=== PATIENT | female | born 1975 | race Caucasian/White ===

== ENCOUNTER 2022-04-17 17:27 | Emergency (ER) | payer OTHER, SELFPAY ==
--- NOTE | ~2022-04-17 | CT_ITS ---
EXAMINATION: CT ABDOMEN AND PELVIS WITHOUT CONTRAST CLINICAL INFORMATION: Abdominal pain, question herniation COMPARISON: None TECHNIQUE: Multidetector volumetric imaging was performed from the superior aspect of the liver through the pubic symphysis. Sagittal and coronal reformatted images were obtained on the technologist's workstation. This CT examination was performed using dose optimization techniques as appropriate, variously including the following: *Automated exposure control *Adjustment of mA and/or kV according to patient size (this includes techniques or standardized protocols for targeted exams where dose is matched to indication/reason for exam; i.e. extremities or head) *Use of iterative reconstruction technique DLP: 955 mGy-cm FINDINGS: LUNG BASES: Numerous nodularity at the lung bases. Differential would include infectious versus malignant etiology. LIVER, GALLBLADDER, AND BILIARY TREE: The liver is normal in size, shape, and attenuation. No focal hepatic lesion or biliary ductal dilatation is present. Gallstones in the gallbladder. PANCREAS: Unremarkable. SPLEEN: Splenomegaly. ADRENAL GLANDS: Unremarkable. KIDNEYS AND URETERS: Nonobstructing mid left renal calculus. BLADDER: Unremarkable. GASTROINTESTINAL TRACT: The bowel pattern is nonobstructing. There is no free fluid. ABDOMINAL WALL: No significant hernia is appreciated. LYMPH NODES: No bulky adenopathy VASCULAR: Unremarkable. PELVIC VISCERA: Unremarkable. OSSEOUS STRUCTURES: Unremarkable. CT/CT abdomen pelvis wo IV con IMPRESSION: This exam is abnormal. There are numerous lung lesions in the partially visualized lung bases. Largest at the right base measuring 1 cm. Differential would include malignancy versus infectious etiology. Recommend CT of the chest to fully evaluate Splenomegaly is present. Uncertain etiology. Other findings are as described above Fleischner guidelines were followed.
--- NOTE | ~2022-04-17 | CT_ITS ---
EXAMINATION: CT CHEST WITH CONTRAST CLINICAL INFORMATION: Lung nodules seen on abdominal CT scan. COMPARISON: CT scan of the abdomen and pelvis dated 04/17/2022. TECHNIQUE: Multidetector volumetric CT imaging of the chest was obtained after the administration of 50 mL of Omnipaque 350 intravenous contrast without immediate adverse reactions. Axial MIP volume rendering provided. Sagittal and coronal reformatted images were obtained. This CT examination was performed using dose optimization techniques as appropriate, variously including the following: *Automated exposure control *Adjustment of mA and/or kV according to patient size (this includes techniques or standardized protocols for targeted exams where dose is matched to indication/reason for exam; i.e. extremities or head) *Use of iterative reconstruction technique DLP: 372 mGy-cm FINDINGS: LUNGS/PLEURA/AIRWAYS: Innumerable pulmonary nodules with solid and subsolid appearance. [employer] nodules are as follows: Left apex, anterolateral: 0.6 cm, image 69, series 5 Right apex, anterior: 1.1 cm, image 104, series 5 Right upper lobe, anterolateral subpleural: 0.7 cm, image 197, series 5 Right middle lobe, anterior subpleural: 0.6 cm, image 271, series 5 Right lower lobe, posterolateral: 1.1 cm, image 303, series 5 Left lower lobe, lateral: 1.0 cm, image 289, series 5 MEDIASTINUM: The visualized thyroid gland is unremarkable. The thoracic aorta is unremarkable. No significant coronary artery calcifications. No pericardial effusion. Mildly prominent mediastinal lymph nodes. A maintenance representative superior mediastinal lymph node between the left subclavian and left common carotid arterial branches measures 1.1 cm in short axis (image 12, series 3). A left anterior mediastinal lymph node measures 0.8 cm in short axis (image 17, series 3). UPPER ABDOMEN: Diffuse decreased hepatic attenuation without focal abnormality. Normal variant extension of the left lobe into the left upper quadrant. Calcified gallstones without surrounding abnormality. Nonobstructing left upper pole renal calculus. MUSCULOSKELETAL: Unremarkable. SOFT TISSUES: Unremarkable. CT/CT chest w IV con IMPRESSION: 1. Multiple pulmonary nodules are nonspecific, but concerning for malignancy/metastatic disease. Septic emboli would be less likely. A causative abnormality was not clearly identified on the recent CT scan of the abdomen and pelvis. PET/CT and/or biopsy are recommended. 2. Hepatic steatosis and cholelithiasis without evidence for acute cholecystitis.
--- NOTE | 2022-04-17 18:37 | ED.GENADULT ---
HPI - General Adult General Chief complaint: Abdominal Pain <Benjamín Garner - Last Filed: 04/17/22 18:55> Stated complaint: Hernia <Benjamín Garner - Last Filed: 04/17/22 18:55> Time Seen by Provider: 04/18/22 06:46 <Benjamín Garner - Last Filed: 04/17/22 18:55> Source: patient <Heide Costello DO - Last Filed: 04/18/22 08:29> Mode of arrival: ambulatory <Heide Costello DO - Last Filed: 04/18/22 08:29> Limitations: no limitations <Heide Costello DO - Last Filed: 04/18/22 08:29> History of Present Illness HPI narrative: 46 yo female with hx of psoriatic arthritis, COVID 3 weeks ago prior lung nodule with biopsy sometime in 2019 here with c/o L sided abdominal wall ttp hurts to move cough no trauma no other symptoms unsure if she had a hernia. She feels something is trying to pop out. She has had a cough since her first bout of COVID but had another bout 3 weeks ago. She denies weight loss, has night sweats due to hernesto-menopause. She has no other symptoms at this time. <Heide Costello DO - Last Filed: 04/18/22 08:29> MD complaint: L sided abdominal pain ?hernia <Heide Costello DO - Last Filed: 04/18/22 08:29> Onset (ago): day(s) (few) <Heide Costello DO - Last Filed: 04/18/22 08:29> Location: abdomen <Heide Costello DO - Last Filed: 04/18/22 08:29> Radiation: non-radiation <Heide Costello DO - Last Filed: 04/18/22 08:29> Severity: moderate <Heide Costello DO - Last Filed: 04/18/22 08:29> Quality: stabbing and constant <Heide Costello DO - Last Filed: 04/18/22 08:29> Pain Consistency: intermittent <Heide Costello DO - Last Filed: 04/18/22 08:29> Relieving factors: immobilization <Heide Costello DO - Last Filed: 04/18/22 08:29> Exacerbating factors: movement <Heide Costello DO - Last Filed: 04/18/22 08:29> Associated symptoms: denies other symptoms <Heide Costello DO - Last Filed: 04/18/22 08:29> Treatments prior to arrival: none <Heide Costello DO - Last Filed: 04/18/22 08:29> Related Data Allergies/adverse reactions: Allergies Allergy/AdvReac Type Severity Reaction Status Date / Time anethesia AdvReac Unknown Anaphylaxis Uncoded 04/17/22 18:47 <Benjamín Garner - Last Filed: 04/17/22 18:55> Review of Systems Review of Systems: Constitutional : No Weight loss, No Fever, No Chills ENT/Mouth : No sore throat, No Rhinorrhea Eyes: No Swelling, No Redness Cardiovascular : No Chest Pain, No SOB, NoEdema Respiratory : pos Cough, No Sputum, No Wheezing Gastrointestinal : no Nausea, no Vomiting, no Diarrhea, positive abdominal Pain, No Hematochezia, No Melena Genitourinary : No Dysuria, No Urinary Frequency, No Hematuria, No Urgency Musculoskeletal : No joint pain, No Myalgias, No Joint Swelling Skin : No Skin Lesions, No rash Neuro : No Weakness, No Numbness, No Dizziness, No Headache Psych : No Anxiety/Panic, No Depression Heme/Lymph: No Bruising, No Lymphadenopathy Endocrine : No Polyuria, No Polydipsia All other systems reviewed and are negative. <Heide Costello DO - Last Filed: 04/18/22 08:29> [facility] Past Medical History Attestation statement: The following information was validated with the patient. <Heide Costello DO - Last Filed: 04/18/22 08:29> Medical History: Medical History Arthritis <Benjamín Garner - Last Filed: 04/17/22 18:55> Surgical History: Surgical History History of hysterectomy History of hysterectomy for cancer <Benjamín Garner - Last Filed: 04/17/22 18:55> Social History Social History: Social History Alcohol intake: never Smoked in Last 30 Days: No Use of substances other than those prescribed or required for medical reasons: No Advance Directives: No Advance Directives Information Provided: No <Benjamín Garner - Last Filed: 04/17/22 18:55> Physical Exam ED Vital Signs: Vital Signs - 24 hr 04/17/22 18:46 04/18/22 02:20 04/18/22 05:07 Temperature 98.2 F 96.8 F 97.4 F Pulse Rate 80 90 79 Respiratory Rate 18 16 16 Blood Pressure 139/85 123/76 128/64 Pulse Oximetry 99 98 99 Oxygen Delivery Method Room Air Room Air Room Air 04/18/22 07:04 Temperature 98.3 F Pulse Rate 78 Respiratory Rate 12 Blood Pressure 116/61 Pulse Oximetry 99 Oxygen Delivery Method Room Air BMI result Body Mass Index 42.5 <Benjamín Garner - Last Filed: 04/17/22 18:55> Vital Signs - 24 hr 04/17/22 18:46 04/18/22 02:20 04/18/22 05:07 Temperature 98.2 F 96.8 F 97.4 F Pulse Rate 80 90 79 Respiratory Rate 18 16 16 Blood Pressure 139/85 123/76 128/64 Pulse Oximetry 99 98 99 Oxygen Delivery Method Room Air Room Air Room Air 04/18/22 07:04 Temperature 98.3 F Pulse Rate 78 Respiratory Rate 12 Blood Pressure 116/61 Pulse Oximetry 99 Oxygen Delivery Method Room Air BMI result Body Mass Index 42.5 <Heide Costello DO - Last Filed: 04/18/22 08:29> Vital Signs - 24 hr 04/17/22 18:46 04/18/22 02:20 04/18/22 05:07 Temperature 98.2 F 96.8 F 97.4 F Pulse Rate 80 90 79 Respiratory Rate 18 16 16 Blood Pressure 139/85 123/76 128/64 Pulse Oximetry 99 98 99 Oxygen Delivery Method Room Air Room Air Room Air 04/18/22 07:04 Temperature 98.3 F Pulse Rate 78 Respiratory Rate 12 Blood Pressure 116/61 Pulse Oximetry 99 Oxygen Delivery Method Room Air BMI result Body Mass Index 42.5 <Fifi Duran MD - Last Filed: 04/18/22 09:07> Appearance: Alert. Oriented X3. No acute distress. Eyes: Pupils equal, round and reactive to light. ENT: Pharynx normal. Neck: Normal inspection. Neck supple. CVS: Normal heart rate and rhythm. Pulses normal. Respiratory: No respiratory distress. Breath sounds normal. Abdomen: Soft and ttp just lateral to umbilicus without no mass felt no discoloration it is right on the rectus sheath without hematoma felt. Skin: Skin warm and dry. Normal skin color. Normal skin turgor. Extremities: No lower extremity edema. No calf ttp Neuro: Oriented X 3. No motor deficit. No sensory deficit. <Heide Costello DO - Last Filed: 04/18/22 08:29> Course Course Course Narrative: DIMA - Tina is a 43-wcdo-wal-female, with a past medical history of anxiety and depression, who presents today with complaints of ?hernia. She states that in December she felt something pop out in her abdomen, just left to her umbilicus. She states that she would feel the area pop in and out , with associated abdominal pain. She states that the pain and sensation occurs more often ever since she had COVID in February as she was coughing more. Patient states that every time she coughs or sneezes, it feels as though something is going to pop out of her abdomen. She states that she had a hysterectomy and had her right ovary removed in the , no other abdominal surgeries. No nausea, vomiting or diarrhea. Plan: CT abdomen and pelvis ordered. <Benjamín Garner - Last Filed: 04/17/22 18:55> Reevaluation(s) Reevaluation #1: This is a 46-year-old female who was signed out to me and I reviewed her imaging studies which again demonstrates multiple pulmonary nodules and the recommendation is for further workup as an outpatient with biopsy and/or PET scan. All results were discussed with patient bedside she was discharged home in stable condition. <Fifi Duran MD - Last Filed: 04/18/22 09:07> Time: 09:05 <Fifi Duran MD - Last Filed: 04/18/22 09:07> Medications Administered Discontinued Medications Generic Name Dose Route Start Last Admin Trade Name Freq PRN Reason Stop Dose Admin Iohexol 100 ml 04/18/22 07:41 04/18/22 07:42 Iohexol 350 Mg/Ml 100 Ml Infus..Btl IV 04/18/22 07:42 65 ml ONCE ONE Administration <Benjamín Garner - Last Filed: 04/17/22 18:55> Medications Administered Discontinued Medications Generic Name Dose Route Start Last Admin Trade Name Freq PRN Reason Stop Dose Admin Iohexol 100 ml 04/18/22 07:41 04/18/22 07:42 Iohexol 350 Mg/Ml 100 Ml Infus..Btl IV 04/18/22 07:42 65 ml ONCE ONE Administration <Heide Costello DO - Last Filed: 04/18/22 08:29> Medications Administered Discontinued Medications Generic Name Dose Route Start Last Admin Trade Name Freq PRN Reason Stop Dose Admin Iohexol 100 ml 04/18/22 07:41 04/18/22 07:42 Iohexol 350 Mg/Ml 100 Ml Infus..Btl IV 04/18/22 07:42 65 ml ONCE ONE Administration <Fifi Duran MD - Last Filed: 04/18/22 09:07> Medical Decision Making Medical Decision Making [facility] Narrative: 46 yo female with psoriatic arthritis here with c/o abdominal wall ttp without mass felt on exam and CT scan shows no hernia but lung nodules and splenomegaly has had lung nodules in the past with biopsy but that was 2020 at this time I am going to repeat CT chest to evaluate the lungs. She has stable labs and VS. May need outpatient biopsy again. Her abdomen is not impressive and CT scan/exam no hernia is noted her pain is right on the rectus sheath no risk factors for hematoma and she has no associated GI symptoms. Will treat that as strain. <Heide Costello DO - Last Filed: 04/18/22 08:29> Differential Diagnosis Differential Diagnoses: The differential diagnosis associated with the presentation includes <Heide Costello DO - Last Filed: 04/18/22 08:29> hernia, rectal sheath strain, abdominal wall strain <Heide Costello DO - Last Filed: 04/18/22 08:29> Lab Data [facility] Lab Attestation statement: I reviewed the patient's lab results. <Heide Costello DO - Last Filed: 04/18/22 08:29> Result Diagrams: 04/17/22 19:16 04/17/22 19:16 <Benjamín Garner - Last Filed: 04/17/22 18:55> Labs: Lab Results 04/17/22 04/17/22 Range/Units 19:16 19:16 WBC 8.5 (4.8-10.8) X10*3/uL RBC 4.62 (4.20-5.50) X10*6/uL Hgb 12.7 (12.0-16.0) g/dl Hct 39.1 (37.0-47.0) % MCV 84.6 (80.0-98.0) fL MCH 27.5 (27.0-33.0) pg MCHC 32.5 (31.0-35.0) g/dl RDW 14.0 (11.0-16.0) % Plt Count 319 (160-400) X10*3/uL MPV 10.0 (9.4-12.3) fL Immature Gran % (Auto) 0.5 H (0.0-0.4) % Neut % (Auto) 65.7 (45-73) % Lymph % (Auto) 23.1 (20-40) % [place] % (Auto) 6.7 (2-11) % Eos % (Auto) 3.4 (0-4) % Baso % (Auto) 0.6 (0-2) % Lymph # (Auto) 2.0 (1.2-4.9) X10*3/uL [place] # (Auto) 0.6 (0.1-1.2) X10*3/uL Eos # (Auto) 0.3 (0.0-0.4) X10*3/uL Baso # (Auto) 0.1 (0.0-0.2) X10*3/uL Abs Immat Gran (auto) 0.04 H (0.00-0.03) X10*3/uL Absolute Neuts (auto) 5.6 (2.0-8.3) x10*3/uL Absolute Nucleated RBC 0.000 (0.0-0.012) X10*3/uL Nucleated RBC % (auto) 0.0 (0.0-0.2) /100WBC Sodium 141 (135-145) mmol/L Potassium 4.0 (3.3-5.1) mmol/L Chloride 108 (96-108) mmol/L Carbon Dioxide 27 (22-29) mmol/L Anion Gap 10 L (12-20) BUN 16 (9-16) mg/dL Creatinine 0.78 (0.5-1.4) mg/dL Estim Creat Clear Calc 106.7 Estimated GFR > 60 Random Glucose 88 (60-115) mg/dL Calcium 9.3 (8.4-10.2) mg/dL Total Bilirubin 0.4 (0.0-1.0) mg/dL AST 33 H (5-31) U/L ALT 65 H (0-31) U/L Alkaline Phosphatase 93 (39-117) U/L Total Protein 7.6 (6.5-8.0) g/dL Albumin 4.2 (3.5-5.0) g/dL Lipase 13 (8-78) U/L <Benjamín Garner - Last Filed: 04/17/22 18:55> Lab Results 04/17/22 04/17/22 Range/Units 19:16 19:16 WBC 8.5 (4.8-10.8) X10*3/uL RBC 4.62 (4.20-5.50) X10*6/uL Hgb 12.7 (12.0-16.0) g/dl Hct 39.1 (37.0-47.0) % MCV 84.6 (80.0-98.0) fL MCH 27.5 (27.0-33.0) pg MCHC 32.5 (31.0-35.0) g/dl RDW 14.0 (11.0-16.0) % Plt Count 319 (160-400) X10*3/uL MPV 10.0 (9.4-12.3) fL Immature Gran % (Auto) 0.5 H (0.0-0.4) % Neut % (Auto) 65.7 (45-73) % Lymph % (Auto) 23.1 (20-40) % [place] % (Auto) 6.7 (2-11) % Eos % (Auto) 3.4 (0-4) % Baso % (Auto) 0.6 (0-2) % Lymph # (Auto) 2.0 (1.2-4.9) X10*3/uL [place] # (Auto) 0.6 (0.1-1.2) X10*3/uL Eos # (Auto) 0.3 (0.0-0.4) X10*3/uL Baso # (Auto) 0.1 (0.0-0.2) X10*3/uL Abs Immat Gran (auto) 0.04 H (0.00-0.03) X10*3/uL Absolute Neuts (auto) 5.6 (2.0-8.3) x10*3/uL Absolute Nucleated RBC 0.000 (0.0-0.012) X10*3/uL Nucleated RBC % (auto) 0.0 (0.0-0.2) /100WBC Sodium 141 (135-145) mmol/L Potassium 4.0 (3.3-5.1) mmol/L Chloride 108 (96-108) mmol/L Carbon Dioxide 27 (22-29) mmol/L Anion Gap 10 L (12-20) BUN 16 (9-16) mg/dL Creatinine 0.78 (0.5-1.4) mg/dL Estim Creat Clear Calc 106.7 Estimated GFR > 60 Random Glucose 88 (60-115) mg/dL Calcium 9.3 (8.4-10.2) mg/dL Total Bilirubin 0.4 (0.0-1.0) mg/dL AST 33 H (5-31) U/L ALT 65 H (0-31) U/L Alkaline Phosphatase 93 (39-117) U/L Total Protein 7.6 (6.5-8.0) g/dL Albumin 4.2 (3.5-5.0) g/dL Lipase 13 (8-78) U/L <Heide Costello, DO - Last Filed: 04/18/22 08:29> Lab Results 04/17/22 04/17/22 Range/Units 19:16 19:16 WBC 8.5 (4.8-10.8) X10*3/uL RBC 4.62 (4.20-5.50) X10*6/uL Hgb 12.7 (12.0-16.0) g/dl Hct 39.1 (37.0-47.0) % MCV 84.6 (80.0-98.0) fL MCH 27.5 (27.0-33.0) pg MCHC 32.5 (31.0-35.0) g/dl RDW 14.0 (11.0-16.0) % Plt Count 319 (160-400) X10*3/uL MPV 10.0 (9.4-12.3) fL Immature Gran % (Auto) 0.5 H (0.0-0.4) % Neut % (Auto) 65.7 (45-73) % Lymph % (Auto) 23.1 (20-40) % [place] % (Auto) 6.7 (2-11) % Eos % (Auto) 3.4 (0-4) % Baso % (Auto) 0.6 (0-2) % Lymph # (Auto) 2.0 (1.2-4.9) X10*3/uL [place] # (Auto) 0.6 (0.1-1.2) X10*3/uL Eos # (Auto) 0.3 (0.0-0.4) X10*3/uL Baso # (Auto) 0.1 (0.0-0.2) X10*3/uL Abs Immat Gran (auto) 0.04 H (0.00-0.03) X10*3/uL Absolute Neuts (auto) 5.6 (2.0-8.3) x10*3/uL Absolute Nucleated RBC 0.000 (0.0-0.012) X10*3/uL Nucleated RBC % (auto) 0.0 (0.0-0.2) /100WBC Sodium 141 (135-145) mmol/L Potassium 4.0 (3.3-5.1) mmol/L Chloride 108 (96-108) mmol/L Carbon Dioxide 27 (22-29) mmol/L Anion Gap 10 L (12-20) BUN 16 (9-16) mg/dL Creatinine 0.78 (0.5-1.4) mg/dL Estim Creat Clear Calc 106.7 Estimated GFR > 60 Random Glucose 88 (60-115) mg/dL Calcium 9.3 (8.4-10.2) mg/dL Total Bilirubin 0.4 (0.0-1.0) mg/dL AST 33 H (5-31) U/L ALT 65 H (0-31) U/L Alkaline Phosphatase 93 (39-117) U/L Total Protein 7.6 (6.5-8.0) g/dL Albumin 4.2 (3.5-5.0) g/dL Lipase 13 (8-78) U/L <Fifi Duran MD - Last Filed: 04/18/22 09:07> Independent Interpretation I performed an independent interpretation of an: CT Scan <Heide Costello DO - Last Filed: 04/18/22 08:29> Discharge Plan Discharge Clinical Impression: Lung nodule Abdominal wall strain Qualifiers: Encounter type: initial encounter Qualified Code(s): S39.011A - Strain of muscle, fascia and tendon of abdomen, initial encounter <Benjamín Garner - Last Filed: 04/17/22 18:55> Patient Disposition: Home, Self-Care <Benjamín Garner - Last Filed: 04/17/22 18:55> Instructions: Abdominal Pain (ED), Pulmonary Nodules (ED) <Benjamín Garner - Last Filed: 04/17/22 18:55> Additional Instructions: return to ED for any worsening symptoms or concerns CT/CT abdomen pelvis wo IV con IMPRESSION: This exam is abnormal. There are numerous lung lesions in the partially visualized lung bases. Largest at the right base measuring 1 cm. Differential would include malignancy versus infectious etiology. Recommend CT of the chest to fully evaluate ? Splenomegaly is present. Uncertain etiology. CT/CT chest w IV con IMPRESSION: ? 1. Multiple pulmonary nodules are nonspecific, but concerning for malignancy/metastatic disease. Septic emboli would be less likely. A causative abnormality was not clearly identified on the recent CT scan of the abdomen and pelvis. PET/CT and/or biopsy are recommended. 2. Hepatic steatosis and cholelithiasis without evidence for acute cholecystitis. <Benjamín Garner - Last Filed: 04/17/22 18:55> Referrals: Corina Schreiber MD [Primary Care Provider] - <Benjamín Garner - Last Filed: 04/17/22 18:55>
[2022-04-17 18:46] VITALS: BP 139/85; PULSE 80; RESP 18; TEMP 36.8; O2SAT 99; BMI 42.5
[2022-04-17 19:30] LABS: MANUAL DIFF FLAG NO
[2022-04-17 19:31] LABS: Basophils Absolute Auto 0.1 X10*3/uL (0.0-0.2); Basophils Percent Auto 0.6 % (0-2); Eosinophils Absolute Auto 0.3 X10*3/uL (0.0-0.4); Eosinophils Percent Auto 3.4 % (0-4); Hematocrit 39.1 % (37.0-47.0); Hemoglobin 12.7 g/dl (12.0-16.0); Imm Gran Abs Auto 0.04 X10*3/uL (0.00-0.03); Imm Gran Pct Auto 0.5 % (0.0-0.4); Lymphocytes Percent Auto 23.1 % (20-40); Mean Corpuscular HGB Conc 32.5 g/dl (31.0-35.0); Mean Corpuscular Hemoglobin 27.5 pg (27.0-33.0); Mean Corpuscular Volume 84.6 fL (80.0-98.0); Monocytes Absolute Auto 0.6 X10*3/uL (0.1-1.2); Monocytes Percent Auto 6.7 % (2-11); Neutrophils Absolute Auto 5.6 x10*3/uL (2.0-8.3); Neutrophils Percent Auto 65.7 % (45-73); Platelet Count 319 X10*3/uL (160-400); Red Blood Count 4.62 X10*6/uL (4.20-5.50); White Blood Count 8.5 X10*3/uL (4.8-10.8)
[2022-04-17 20:01] LABS: Alanine Aminotransferase 65 U/L (0-31); Albumin Level 4.2 g/dL (3.5-5.0); Alkaline Phosphatase 93 U/L (39-117); Anion Gap 10 (12-20); Aspartate Amino Transferase 33 U/L (5-31); Bilirubin Total 0.4 mg/dL (0.0-1.0); Blood Urea Nitrogen 16 mg/dL (9-16); Calcium 9.3 mg/dL (8.4-10.2); Carbon Dioxide 27 mmol/L (22-29); Chloride 108 mmol/L (96-108); Creatinine Clr Calc Pharmacy 106.7; Estimated Glomerular Filt Rate > 60; Glucose Random 88 mg/dL (60-115); Lipase 13 U/L (8-78); Sodium 141 mmol/L (135-145); Total Protein 7.6 g/dL (6.5-8.0)
[2022-04-18 02:20] VITALS: BP 123/76; PULSE 90; RESP 16; TEMP 36; O2SAT 98
[2022-04-18 05:07] VITALS: BP 128/64; PULSE 79; RESP 16; TEMP 36.3; O2SAT 99
--- NOTE | 2022-04-18 05:10 | MHC.EDTECH ---
PT WAS CALLED BACK TO TRIAGE TO RE DO VITALS SIGN ,I GIVE PT WARM BLANKET AND A BOX OF TISSUE .
[2022-04-18 07:04] VITALS: BP 116/61; PULSE 78; RESP 12; TEMP 36.8; O2SAT 99
[2022-04-18] MEDS: iohexoL 350 MG/ML 100 ML INFUS..BTL IV (07:42)
== END 2022-04-18 09:27 | disposition home or self-care (01) ==
PROVIDERS: Physician Assistant; Emergency Provider Student in an Organized Health Care Education/Training Program; PCP Internal Medicine
DX: R91.1 Solitary pulmonary nodule (principal); S39.011A Strain of muscle, fascia and tendon of abdomen, initial encounter; X58.XXXA Exposure to other specified factors, initial encounter; Y93.89 Activity, other specified; Y92.039 Unspecified place in apartment as the place of occurrence of the external cause; Y99.9 Unspecified external cause status; Z87.891 Personal history of nicotine dependence
CPT/HCPCS: 36415; 71260; 74176; 80053; 83690; 85025; 99284; Q9967

== ENCOUNTER 2022-05-01 08:13 | Outpatient (REF) | payer OTHER, SELFPAY ==
[2022-05-01 11:17] LABS: Appearance Urine Turbid; Color Urine Yellow; Glucose Urine UA Negative (Negative); Leukocyte Esterase Urine Negative (Negative); Nitrite Urine Negative (Negative); PH 5.5 (5.0-9.0); Urine Blood Negative (Negative); Urine Ketones Negative (Negative); Urine Protein Negative (Neg-Trace)
[2022-05-01 11:22] LABS: MANUAL DIFF FLAG NO
[2022-05-01 11:45] LABS: Basophils Percent Auto 0.5 % (0-2); Eosinophils Absolute Auto 0.3 X10*3/uL (0.0-0.4); Eosinophils Percent Auto 4.1 % (0-4); Hematocrit 38.2 % (37.0-47.0); Hemoglobin 12.4 g/dl (12.0-16.0); Imm Gran Abs Auto 0.03 X10*3/uL (0.00-0.03); Imm Gran Pct Auto 0.5 % (0.0-0.4); Lymphocytes Absolute Auto 1.6 X10*3/uL (1.2-4.9); Lymphocytes Percent Auto 24.7 % (20-40); Mean Corpuscular HGB Conc 32.5 g/dl (31.0-35.0); Mean Corpuscular Hemoglobin 27.7 pg (27.0-33.0); Mean Corpuscular Volume 85.5 fL (80.0-98.0); Mean Platelet Volume 10.4 fL (9.4-12.3); Monocytes Absolute Auto 0.4 X10*3/uL (0.1-1.2); Monocytes Percent Auto 6.2 % (2-11); Neutrophils Absolute Auto 4.1 x10*3/uL (2.0-8.3); Platelet Count 314 X10*3/uL (160-400); Red Blood Count 4.47 X10*6/uL (4.20-5.50); Red Cell Distribution Width 14.4 % (11.0-16.0); White Blood Count 6.3 X10*3/uL (4.8-10.8)
[2022-05-01 11:59] LABS: Alanine Aminotransferase 55 U/L (0-31); Albumin Level 4.1 g/dL (3.5-5.0); Alkaline Phosphatase 77 U/L (39-117); Anion Gap 11 (12-20); Aspartate Amino Transferase 36 U/L (5-31); Bilirubin Total 0.7 mg/dL (0.0-1.0); Blood Urea Nitrogen 12 mg/dL (9-16); Calcium 8.9 mg/dL (8.4-10.2); Carbon Dioxide 23 mmol/L (22-29); Chloride 109 mmol/L (96-108); Estimated Glomerular Filt Rate > 60; Glucose Fasting 101 mg/dL (60-99); Iron 86 mcg/dL (30-160); Percent Iron Saturation 27 % (15-50); Potassium 4.1 mmol/L (3.3-5.1); Sodium 139 mmol/L (135-145); Total Iron Binding Capacity 317 mcg/dL (228-428); Total Protein 7.2 g/dL (6.5-8.0); Unsaturated Iron Binding 231 ug/dL
[2022-05-01 12:06] LABS: TSH reflex Free T4 4.56 uIU/mL (0.32-4.0)
[2022-05-01 12:48] LABS: Free T4 (Free Thyroxine) 0.64 ng/dL (0.71-1.85)
[2022-05-03 15:08] LABS: Anti Nuclear Antibody Screen NEGATIVE (NEGATIVE)
[2022-05-03 22:33] LABS: Ceruloplasmin 32 mg/dL (18-53)
[2022-05-05 15:47] LABS: Angiotensin Converting Enzyme 51.8 U/L (9-67)
[2022-05-07 10:39] LABS: Mitochondrial Antibodies NEGATIVE (NEGATIVE)
[2022-05-14 14:09] LABS: A1A Referring Physician NG
== END 2022-05-01 08:14 | disposition home or self-care (01) ==
LOC: HO.HMGCLDS 08:13
PROVIDERS: PCP Internal Medicine; Visit Provider Internal Medicine
DX: Z00.00 Encounter for general adult medical examination without abnormal findings (principal); R79.89 Other specified abnormal findings of blood chemistry; R91.8 Other nonspecific abnormal finding of lung field; Z80.0 Family history of malignant neoplasm of digestive organs; K21.9 Gastro-esophageal reflux disease without esophagitis; E03.9 Hypothyroidism, unspecified
CPT/HCPCS: 36415; 80053; 81003; 81256; 82104; 82164; 82390; 83540; 84439; 84443; 85025; 86038; 86039; 86255; 86256

== ENCOUNTER → 2022-05-08 09:21 | Outpatient (BNVA) | payer OTHER, SELFPAY | PROVIDERS: PCP Internal Medicine; Visit Provider Hospitalist | DX: Z13.89 Encounter for screening for other disorder (principal) ==

== ENCOUNTER 2022-05-23 07:57 | Outpatient (REF) | payer OTHER, SELFPAY ==
--- NOTE | 2022-05-23 | PFT_ITS ---
FLOWS: 1. FEV1 92% of predicted at 2.59 L. 2. FVC 81% of predicted at 2.83 L. 3. FEV1 to FVC ratio of 0.92. 4. No bronchodilator response. LUNG VOLUMES: 1. Total lung capacity 74% of predicted at 3.65 L. 2. Residual volume 49% of predicted at 0.83 L. 3. Slow vital capacity 87% of predicted at 2.82 L. 4. Expiratory reserve volume 42% of predicted at 0.45 L. 5. Diffusion capacity is mildly decreased. Diffusion capacity corrects normal after adjustment for alveolar ventilation. IMPRESSION: Mild restrictive ventilatory defect with no bronchodilator response. Decreased respiratory residual volume suggests extrathoracic restriction likely secondary to abdominal obesity. Decreased diffusion capacity suggests emphysema. Mirza Nunes MD AP/MODL / [id number]
== END 2022-05-23 07:58 | disposition home or self-care (01) ==
LOC: HO.RESP 07:57
PROVIDERS: PCP Internal Medicine; Visit Provider Hospitalist
DX: R06.00 Dyspnea, unspecified (principal)
CPT/HCPCS: 94060; 94727; 94729

== ENCOUNTER → 2022-05-24 09:05 | Outpatient (BNVA) | payer OTHER, SELFPAY | PROVIDERS: PCP Internal Medicine; Visit Provider Surgery | DX: R91.8 Other nonspecific abnormal finding of lung field (principal); Z87.891 Personal history of nicotine dependence; Z85.41 Personal history of malignant neoplasm of cervix uteri | CPT/HCPCS: 99202 ==

== ENCOUNTER 2022-06-19 07:24 | Outpatient (REF) | payer OTHER, SELFPAY ==
--- NOTE | ~2022-06-19 | MM_ITS ---
EXAMINATION: MM SCREENING DIGITAL BREAST TOMOSYNTHESIS, BILATERAL CLINICAL INFORMATION: Screening. Asymptomatic. The lifetime risk of breast cancer based on the Tyrer-Cuzick Model is 23%. Additional annual screening with breast MRI may be of benefit in women with a score of 20% or greater. COMPARISON: Mammography: 07/10/2018 and 03/15/2017 TECHNIQUE: Digital breast tomosynthesis is performed in both the craniocaudal and mediolateral oblique views along with computer-aided detection (CAD). Synthesized 2D images are generated from the tomosynthesis. FINDINGS: There are scattered areas of fibroglandular density (ACR BI-RADS breast composition Category b). There is stable parenchymal pattern of the right breast with no new abnormal dominant mass or suspicious grouping of microcalcifications. Within the left breast there is an asymmetric density inferiorly on mediolateral oblique projection approximately 4 cm from the nipple, for which further evaluation with spot compression mediolateral oblique view and 90 degree mediolateral views. MM/MM tomosynthesis screening BI IMPRESSION: Left breast asymmetric density for further evaluation. ASSESSMENT: BI-RADS 0: Incomplete - Need Additional Imaging Evaluation RECOMMENDATION: 1. Additional views of the left breast. 2. Targeted ultrasound if warranted after review of the additional views. 3. Radiology department staff will contact the patient for additional imaging. This patient's information was entered into a reminder system with a target due date for their next mammogram.
== END 2022-06-19 07:25 | disposition home or self-care (01) ==
LOC: HO.MAMMO 07:24
PROVIDERS: PCP Internal Medicine; Visit Provider Internal Medicine
DX: Z12.31 Encounter for screening mammogram for malignant neoplasm of breast (principal)
CPT/HCPCS: 77063; 77067

== ENCOUNTER → 2022-07-03 10:57 | Outpatient (BNVA) | payer OTHER, SELFPAY | PROVIDERS: PCP Internal Medicine; Referring Provider Internal Medicine; Visit Provider Physician Assistant ==

== ENCOUNTER 2022-07-17 09:55 | Outpatient (REF) | payer OTHER, SELFPAY ==
[2022-07-17 13:43] LABS: HIV AB/AG Nonreactive (Nonreactive); HIV Num 1 0.07 S/CO (0.00-0.99)
[2022-07-17 13:49] LABS: TSH reflex Free T4 1.85 uIU/mL (0.32-4.0)
[2022-07-17 13:54] LABS: Erythrocyte Sedimentation Rate 29 MM/HR (0-20)
[2022-07-19 17:04] LABS: Anti DNA DS Antibody <1 IU/mL; Antibody to SS-A Antigen >8.0 POS AI (<1.0 NEG); Antibody to SS-B Antigen <1.0 NEG AI (<1.0 NEG)
[2022-07-24 10:59] LABS: Cyclic Citrullinated Peptide <16 UNITS
[2022-07-24 14:27] LABS: ANA Pattern 2 Nuclear, Homogeneous; Anti Nuclear Antibody Pattern Nuclear, Nucleolar; Anti Nuclear Antibody Screen POSITIVE (NEGATIVE)
== END 2022-07-17 09:56 | disposition home or self-care (01) ==
LOC: HO.LAB 09:55
PROVIDERS: PCP Internal Medicine; Visit Provider Hospitalist
DX: E03.9 Hypothyroidism, unspecified (principal); R91.8 Other nonspecific abnormal finding of lung field; R59.9 Enlarged lymph nodes, unspecified; D47.9 Neoplasm of uncertain behavior of lymphoid, hematopoietic and related tissue, unspecified; Z80.1 Family history of malignant neoplasm of trachea, bronchus and lung
CPT/HCPCS: 36415; 84443; 85652; 86038; 86039; 86200; 86225; 86235; 87389

== ENCOUNTER 2022-07-22 14:21 | Outpatient (REF) | payer OTHER, SELFPAY ==
--- NOTE | ~2022-07-22 | MM_ITS ---
EXAMINATION: MM DIAGNOSTIC DIGITAL BREAST TOMOSYNTHESIS, LEFT CLINICAL INFORMATION: Recall from screening for asymmetric density lower left breast limited to MLO view, suspect summation artifact or incompletely compressed glandular tissue. Family history breast cancer, mother. TC score 23%. COMPARISON: Mammography: 06/19/2022; outside mammography 07/10/2018 and 03/15/2017 ([facility]). TECHNIQUE: Digital breast tomosynthesis is performed. 2D images are generated from the tomosynthesis. The following views are obtained: Spot MLO, standard ML FINDINGS: There are scattered areas of fibroglandular density (ACR BI-RADS breast composition Category b). The additional views show parenchymal pattern similar to prior studies. There is no developing density or interval mass or architectural abnormality. Results are discussed with the patient at time of visit. MM/MM tomosynthesis added views L IMPRESSION: Additional views show no significant changes from prior studies. ASSESSMENT: BI-RADS 1: Negative RECOMMENDATION: -Routine annual mammography screening. -The lifetime risk of breast cancer based on the Tyrer-Cuzick Model is 23%. Additional annual adjunct screening with breast MRI may be of benefit in women with a risk score of 20% or greater. This patient's information was entered into a reminder system with a target due date for their next mammogram.
== END 2022-07-22 14:22 | disposition home or self-care (01) ==
LOC: HO.MAMMO 14:21
PROVIDERS: PCP Internal Medicine; Visit Provider Internal Medicine
DX: R92.2 Inconclusive mammogram (principal)
CPT/HCPCS: 77061; 77065

== ENCOUNTER 2022-07-30 13:04 | Outpatient (REF) | payer OTHER, SELFPAY ==
--- NOTE | ~2022-07-30 | PE_ITS ---
EXAMINATION: Fluorine-18 FDG PET/CT Scan CLINICAL INDICATION: Subsequent treatment management. B-cell lymphoma, restaging. PROCEDURE: 70 minutes following the intravenous administration of 21.5 mCi of fluorine 18 FDG, images from the base of the skull to the mid thighs were obtained using a combined PET/CT scanner with CT scan based attenuation correction. No oral contrast was administered. No intravenous contrast was administered. Transverse, coronal, sagittal, and volume reconstruction projections were obtained. The patient's blood glucose as determined by a finger stick, was 94 mg/dl immediately prior to injection. Total CT exam dose-length product 1241.84 mGy-cm * These CT images were obtained using dose optimization techniques as appropriate, variously including the following: Automated exposure control * Adjustment of mA and/or kV according to patient size (this includes techniques or standardized protocols for targeted exams where dose is matched to indication/reason for exam; i.e. extremities or head) * Use of iterative reconstruction technique COMPARISON: The report of a previous PET/CT scan performed at [facility] dated 05/16/2022 is available, but the images from that study are not available For review. CT scan of the chest dated 04/18/[address] scan of the abdomen and pelvis dated 04/17/2022 are available for comparison. FINDINGS: (Slice numbers described in this report are numbered superiorly to inferiorly with slice #1 in the head) NECK AND VISUALIZED HEAD: No foci of abnormal FDG activity are noted. There is bilaterally symmetrical prominent activity in the lingual and palatine tonsils which is likely physiological or inflammatory in etiology. The distribution of FDG activity is physiological. There is no cervical lymphadenopathy. THORAX: There is a suture line in the medial aspect of the right lung apex with very weakly associated FDG activity. A suture line extends across the major interlobar fissure to the medial aspect of the superior segment of the right lower lobe. Several subcentimeter right lung nodules are present, the largest in the lateral aspect of the base of the right lower lobe measuring 0.9 x 0.7 cm in largest transverse dimensions, slice 96/267. This is too small to be characterized on the FDG PET images, as are all of the other smaller nodules. These nodules do not appear significantly changed from the 04/18/[address] scan, the most recent study with images available for comparison. There is no pleural or pericardial fluid, or pneumothorax. There is no mediastinal, supraclavicular, or axillary lymphadenopathy. ABDOMEN AND PELVIS: There is FDG activity of varying intensities present throughout the gastrointestinal tract. The most prominent activity is in the mid right colon. There is no corresponding abnormality on these nondiagnostic CT images or the diagnostic 04/17/2022 CT scan of the abdomen and pelvis and this activity is also likely physiological. There is diverticulosis without evidence of diverticulitis. The hollow viscera are otherwise unremarkable. There is mild diffuse hepatic steatosis but the liver is otherwise unremarkable. Multiple peripherally calcified gallbladder calculi are present but the gallbladder is otherwise unremarkable. The spleen is mildly enlarged measuring 14 cm in largest dimension on the coronal projections. There is homogeneous FDG activity in the spleen. The kidneys, adrenal glands, and pancreas are unremarkable. There is no retroperitoneal, mesenteric, pelvic or inguinal lymphadenopathy. There is a fluid density 3.6 x 4.0 cm left adnexal cyst. Most of this is markedly FDG photopenic but a region which shows more dense attenuation on the CT images shows very mild FDG activity, and the lateral aspect of this, SUVmax 2.7, slice 213/261. The pelvic organs are otherwise unremarkable. MUSCULOSKELETAL: There are no foci of abnormal FDG activity in the osseous structures. There are mild degenerative changes in the spine but no suspicious sclerotic or lytic lesions are visualized. VASCULAR: No significant abnormalities are present. PET/PET CT fusion skull to thigh IMPRESSION: Multiple subcentimeter pulmonary nodules are present, more prominently in the right lung, these appear stable compared to the 04/18/[address] scan. All of these are too small to be characterized on the FDG PET images. Continued monitoring with diagnostic CT imaging is recommended. A left adnexal cyst is present and there is some very mild FDG activity in the lateral aspect of this but most of this is FDG photopenic and fluid density. This is probably benign, but this could be further characterized with MRI performed without and with intravenous contrast, if clinically indicated. No additional abnormalities suspicious for metastatic or other malignant lesions. Cholelithiasis. In this patient with known lymphoma, using the 5 point Deauville scale, this patient would be classified as a Deauville score of 1. Reference: Deauville Score: Score 1: No uptake above the background Score 2: Uptake not greater than mediastinum Score 3: Uptake greater than mediastinum but less than liver Score 4: Uptake moderately increased compared to the liver Score 5: Uptake markedly increased compared to the liver or any new lesion Score X: Foci of uptake unlikely to be related to lymphoma
== END 2022-07-30 13:05 | disposition home or self-care (01) ==
LOC: HO.PET 13:04
PROVIDERS: PCP Internal Medicine; Visit Provider Internal Medicine Medical Oncology
DX: Z13.89 Encounter for screening for other disorder (principal)

== ENCOUNTER 2022-08-21 15:56 | Outpatient (REF) | payer OTHER, SELFPAY | END 2022-08-21 15:57 | disposition home or self-care (01) | LOC: HO.US 15:56 | PROVIDERS: PCP Internal Medicine; Visit Provider Internal Medicine Medical Oncology | DX: N94.89 Other specified conditions associated with female genital organs and menstrual cycle (principal) | CPT/HCPCS: 76830; 76856 ==

== ENCOUNTER 2022-09-04 13:29 | Outpatient (AMB) | payer OTHER, SELFPAY ==
[2022-09-04 13:33] VITALS: BMI 45.3
--- NOTE | 2022-09-04 13:33 | A.OFFVIS_ITS ---
Intake VS Expanded 09/04/22 13:33 09/17/22 08:57 Height 5 ft 3 in 5 ft 3 in Weight 255 lb 11.779 oz 256 lb BMI 45.3 45.3 Intake Visit Reasons: Obesity Allergies No Known Allergies Allergy (Verified 08/08/22 09:13) HPI Nutrition Presentation Details Patient presents for initial medical nutrition therapy visit for Obesity. The patient was referred by, Dr. Schreiber Patient reports lacking appetite for pork/beef/poultry - after covid a couple of years ago Who prepares the meals: self Patient reports meals are as follow : Reports having one meal a day Regularly has Dinner: cod , pasta or grapes /smoked cheese snack choices and time: -- Fried food/wk-- eating out /wk and choices:-- Dairy serving/d and choices:-- Fruit servings/d : -- vegetable servings: -- starchy veg preferred protein serving/d : Beverages of choice: water, juices, tea physical activity: sedentary alcohol intake: denies smoking: denies UGB-Uyjgrpi-Vu.Jeor Equation Height 5 ft 3 in Weight 256 lb Resting Metabolic Rate 1772.84 Calculated Activity Level Sedentary Calories Needed to Maintain Weight 2127.41 Diagnosis Nutrition problem #1 food nutri know defi As related to (etiology) #1 diagnosis As evidenced by (sign/symptom) #1 no prior educ - nutri rec Monitoring/Goals Nutrition problem monitoring level of knowledge/skill and weight Nutrition goal/outcome list 3 CHO foods, wt loss 5lbs in 2 months and list 3 high fiber foods Outcome progress verbalized understanding Learning/Education Readiness to learn good Stages of change pre-contemplation Educational materials provided Yes (Meal planning) Most Recent Diabetes Results: Creatinine 0.78 mg/dL (0.5-1.4) 08/08/22 Blood Urea Nitrogen 12 mg/dL (9-16) 08/08/22 Sodium 141 mmol/L (135-145) 08/08/22 Potassium 4.5 mmol/L (3.3-5.1) 08/08/22 Chloride 107 mmol/L (96-108) 08/08/22 Carbon Dioxide 24 mmol/L (22-29) 08/08/22 Calcium 10.3 mg/dL (8.4-10.2) H 08/08/22 AST 65 U/L (5-31) H 08/08/22 ALT 103 U/L (0-31) H 08/08/22 Total Protein 8.3 g/dL (6.5-8.0) H 08/08/22 Albumin 4.5 g/dL (3.5-5.0) 08/08/22 [facility] Medical History Arthritis History of cervical cancer (~2015) History of tobacco use Lymphadenopathy, mediastinal Lymphoid hyperplasia Lymphoproliferative disorder Surgical History History of appendectomy (~1998) History of cervical biopsy History of hysterectomy for cancer History of lung biopsy History of lung surgery History of lung surgery History of right oophorectomy (~1998) Family History Father Lung cancer Colon cancer Mother Breast CA Social History Household Members Other:: , 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), 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 Housing: Condominium Alcohol intake: never Patient Tobacco Use Status: Former Tobacco user e-Cigarette/Vaping Use: Never Used service: No Current occupational status: employed Cognitive needs: No Hearing needs: No Vision needs: Yes Assessment & Plan Assessment & Plan (1) Obesity: Code(s): E66.9 - Obesity, unspecified Plan: Weight: 116 kg (August 2022) Est kcal needs as per MSJ: 2100 (40% carb, 30% protein/fat) Est fluid needs as per 25 ml/d: 2900 ml Est prot per day as per 1 g/kg bw: 116 Recommend fiber intake : 8-10 g per day and gradually increase to 25-28 g per day for women and 35-38 g for men or as tolerated Recommend sodium intake per day : less than 2000 mg Educated patient on: ( R = reviewed V = verbalizes understanding N/R = needs review N/A = not applicable * Food sources of carbohydrate, adequate serving sizes and its role in various health conditions: R * Differences between complex carbohydrates a simple carbohydrates, role of fiber in diet: R * Differences between types of fats and role in diet (mono on saturated fat fatty acids, saturated fatty acids, trans fats): R * Food sources of sodium in salt and healthy modifications for heart health in kidney health: NR * Vitamins and minerals: R * Healthy plate method concept: R * Physical activity: Benefits a precaution: R Patient Instructions: Work on reducing portion sizes at dinnertime,, Reduce on total carbohydrates to 70 g at dinner following healthy plate method Practice mindful eating Coding Level of Care Code Nutr Indiv Intake (98829) Diagnoses Obesity E66.9 Time Spent (min) 35
[2022-09-17 08:57] VITALS: BMI 45.3
== END 2022-09-04 14:10 | disposition home or self-care (01) ==
PROVIDERS: PCP Internal Medicine; Visit Provider Dietitian, Registered
DX: E66.9 Obesity, unspecified (principal)

== ENCOUNTER → 2022-09-04 13:29 | Outpatient (BNVA) | payer OTHER, SELFPAY | PROVIDERS: PCP Internal Medicine; Visit Provider Dietitian, Registered | DX: E66.9 Obesity, unspecified (principal); Z71.3 Dietary counseling and surveillance; Z68.42 Body mass index [BMI] 45.0-49.9, adult | CPT/HCPCS: 97802 ==

== ENCOUNTER 2022-10-28 08:02 | Outpatient (REF) | payer OTHER, SELFPAY ==
--- NOTE | ~2022-10-28 | MR_ITS ---
EXAMINATION: MRI PELVIS WITH AND WITHOUT CONTRAST CLINICAL INFORMATION: Reason for Exam left adnexal mass COMPARISON: CT from 04/17/2022 TECHNIQUE: Multiple routine MRI sequences through the pelvis were obtained on a high-field 1.5 Niurka MRI before and after the uneventful administration of 10 mL of Gadavist gadolinium-based IV contrast. FINDINGS: UTERUS: The uterus is absent. VAGINA: Normal; no mass seen. RIGHT OVARY: The right ovary is not seen. No right adnexal mass. LEFT OVARY: The left ovary measures 3.4 x 3.3 x 2.8 cm. There are multiple cysts seen in the ovary. These appear simple. The largest measures 2.5 cm. No follow-up imaging recommended. KIDNEYS: Two normally positioned kidneys are seen. No hydronephrosis. BLADDER: Urinary bladder normal. PELVIC FREE FLUID: No free fluid or ascites. LYMPH NODES: No pathologically enlarged lymph nodes. OSSEOUS STRUCTURES: No acute or suspicious osseous abnormalities. MR/MR pelvis wo/w con IMPRESSION: Multiple simple appearing cysts in the left ovary. No follow-up imaging recommended.
[2022-10-28] MEDS: gadobutroL 10 ML VIAL IVPUSH (09:33)
== END 2022-10-28 08:03 | disposition home or self-care (01) ==
LOC: HO.MRI 08:02
PROVIDERS: PCP Internal Medicine; Visit Provider Internal Medicine Medical Oncology
DX: N94.89 Other specified conditions associated with female genital organs and menstrual cycle (principal)
CPT/HCPCS: 72197; A9585

== ENCOUNTER 2022-11-11 07:31 | Outpatient (REF) | payer OTHER, SELFPAY ==
--- NOTE | ~2022-11-11 | CT_ITS ---
EXAMINATION: CT CHEST WITH CONTRAST CLINICAL INFORMATION: Follow-up lung nodules. BALTOMA. COMPARISON: PET/CT 07/30/2022. Chest CT 04/18/2022. TECHNIQUE: Multidetector volumetric CT imaging of the chest was obtained after the administration of 65 mL of Omnipaque 350 intravenous contrast without immediate adverse reactions. Axial MIP volume rendering provided. Sagittal and coronal reformatted images were obtained. This CT examination was performed using dose optimization techniques as appropriate, variously including the following: *Automated exposure control *Adjustment of mA and/or kV according to patient size (this includes techniques or standardized protocols for targeted exams where dose is matched to indication/reason for exam; i.e. extremities or head) *Use of iterative reconstruction technique DLP: 196 mGy-cm FINDINGS: LUNGS: Postoperative changes in the right lung. Numerous pulmonary nodules with telemarketing representative nodules as follows: 1. Right upper lobe along the resection line measuring 10 x 7 mm series 5 image 84. 2. Right upper lobe along the major fissure measuring 7 x 5 mm series 5 image 172. 3. Right lower lobe along the medial pleura measuring 12 x 8 mm series 5 image 263. 4. Left lower lobe measuring 11 x 8 mm series 5 image 281. MEDIASTINUM: The imaged thyroid gland appears normal. The thoracic aorta is normal in caliber. Shotty mediastinal lymph nodes measuring up to 1.1 cm. No pericardial effusion. No demonstrable coronary calcium. PLEURA: There is no pleural effusion. No pleural mass or thickening. AXILLA: No adenopathy. UPPER ABDOMEN: Hepatic steatosis. Cholelithiasis. No upper abdominal adenopathy. OSSEOUS STRUCTURES: No suspicious osseous lesions. CT/CT chest w IV con IMPRESSION: Postoperative changes right lung are stable. Numerous bilateral pulmonary nodules and mediastinal lymph nodes as measured above appear stable compared to index study of 06/18/2022. Follow-up as per oncology imaging protocol. Fleischner guidelines do not apply.
[2022-11-11] MEDS: iohexoL 350 MG/ML 100 ML INFUS..BTL IV (08:23)
== END 2022-11-11 07:32 | disposition home or self-care (01) ==
LOC: HO.CT 07:31
PROVIDERS: PCP Internal Medicine; Visit Provider Internal Medicine Medical Oncology
DX: C88.4 Extranodal marginal zone B-cell lymphoma of mucosa-associated lymphoid tissue [MALT-lymphoma] (principal)
CPT/HCPCS: 71260; Q9967

== ENCOUNTER 2023-01-15 10:15 | Outpatient (AMB) | payer OTHER, SELFPAY ==
--- NOTE | 2023-01-15 10:21 | A.OFFVIS_ITS ---
Intake Vital Signs 01/15/23 10:28 Height 5 ft 3 in Weight 240 lb BMI 42.5 Pulse 77 Pulse Source Pulse Oximeter Pulse Oximetry (%) 99 Oxygen Delivery Method Room Air Intake Visit Reasons: Pulmonary nodules Supervisor Bill[place]ing Required: No Allergies No Known Allergies Allergy (Verified 01/15/23 10:29) HPI HPI Comments History of Present Illness Details The patient is a 47 year woman with a known history of cervical cancer status post hysterectomy back in 2017 and also found to have pulmonary nodules around the same time as well. The patient did undergo a CT-guided biopsy at that time which was nondiagnostic in very painful and traumatic 4. Ultimately she was referred to thoracic surgery where she underwent a wedge resection of the right lower lobe nodular density. The diagnosis was of an atypical lymphoid hyperplasia. No evidence of any lymphoma that was documented. The patient healed well from that. And she had been doing otherwise well. She was in her usual state health until more recently when she started developing acute onset abdominal pain. She went to the ER which she had a CT scan of the abdomen and pelvis. The CT scan of the abdomen picked up additional pulmonary nodules in therefore she was referred to Pulmonary. I did review her CT scan from [facility] from 2017 demonstrating the nodular densities primarily on the right side and also reviewed the pathology. We then compared that to her recent CT scan of the chest demonstrating no numerous peripheral base pulmonary nodules in a bronchovascular distribution primarily at the bases. Appears to be something hematogenous sleep spreading therefore metastatic disease is a potential concern. She does have a history of cancer in the past as well. There is also a history of lung cancer in the family. As far as her screenings she is 46 years old and she is scheduled to have a mammogram soon. She has not had any colonoscopies. Based on that CT scan findings and nodular densities measuring greater than 8 mm in size and also some evidence on lymphadenopathy I will request a PET scan to better address the issue. 07/17/2022 The patient is here for a pulm onary follow up visit. She did undergo the wedge biopsy. The patient is recovering well. Her biopsy demonstrated evidence of a lympho-prolifererative process. Blood dyscresia is a concern. She did have a biopsy back in 2017 which demonstrated lymphoid hyperplasia. But now numeruous nodules, some which her PET avid. She has an appointment with hematology oncology next week. In the mean time the patient has psoriasis increasing her risk for lymphopriliferative condiitons. We will request additional bloodwork. 01/15/2023 the patient is here for a pul monary follow-up visit. The patient overall has been doing well from a respiratory status. She recovered well from surgery. She did follow-up with Oncology. She did have her PET scan and subsequently an MRI after that. At this point things are stable. We did do blood work. Appears that her Sjogren's antibodies are elevated and she also is treated for psoriatic arthritis. Explained to her that these 2 conditions can resulting in therefore proliferative conditions and therefore the circumstances that she finds. Therefore treating her audio me conditions will be crucial and try to minimize the lymphoproliferative component. The patient does have multiple pulmonary nodules. We did look at her last CT scan done in November 2022. Will continue to monitor the CT scans every 6 months in view of the size of the nodules. It is reassuring that the nodules have not changed in size when compared to her CT scan from June 2022. 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 At this point the patient will continue with current therapy and will follow-up with a CT scan in 6 months. 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), 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 Alcohol intake: never Patient Tobacco Use Status: Former Tobacco user e-Cigarette/Vaping Use: Never Used service: No Current occupational status: employed Cognitive needs: No Hearing needs: No Vision needs: Yes Review of Systems Const Denies fatigue, Denies fever(s), Denies malaise and Denies night sweats Eyes Denies change in vision ENT Denies change in voice Card Denies chest pain Resp Denies cough and Denies wheezing Musc Reports no additional complaints Skin/Breast Denies rash Neuro Reports no additional complaints Endo Denies fatigue Isiah/Lymph Denies easy bruising and Denies lymphadenopathy Aller/Immun Denies wheezing Physical Exam Vital Signs: Last Vital Signs Pulse 77 01/15/23 10:28 Pulse Ox 99 01/15/23 10:28 Oxygen Delivery Method Room Air 01/15/23 10:28 BMI result Body Mass Index 42.5 Const General: comfortable HEENT Head: Yes normocephalic Eyes General: appearance normal, both eyes and all related structures Neck Neck: Yes supple Chest Chest palpation & inspection: normal inspection of the chest Resp Effort & Inspection: normal respiratory effort Auscultation: clear to auscultation bilaterally Cardio Rate: regular rate Rhythm: regular rhythm Heart sounds: S1 normal heart sound present and S2 normal heart sound present GI Palpation (GI): Soft to palpation Skin General skin exam: no rashes or lesions noted Extrem General: Yes no clubbing, cyanosis or edema Results Reviewed Results Reviewed: RUN: 01/15/23 1047 PAGE 1 [facility] [address] [place] [id number] Hopper Attendant: Modesto Levine M.D. Specimen Inquiry Name: Génesis Cotton Age/Sex: 46/F : 1975 Unit#: [id number] Attend Dr: Lanre Wilson MD Re07/17/22 Status: DEP REF Location: [facility] Disch: SPEC : [id number] GISELA: 07/17/22 STATUS: COMP REQ : [id number] RECD: 07/17/[address]: Lanre Wilson MD COMP: 07/19/221704 ENTERED: 07/17/22-1026 [facility] DR: Corina Schreiber MD ORDERED: Sjogren's Abs, Anti DNA DS Ab Test Result Flag Reference Site SS-A >8.0 POS A <1.0 NEG AI QUM SS-B <1.0 NEG <1.0 NEG AI QUM THIS TEST WAS PERFORMED AT: [facility] [address] [place] [id number] JOSE G DE LEON MD Anti DNA DS Ab <1 IU/mL QUM IU/mL Interpretation < or = 4 Negative 5-9 Indeterminate > or = 10 Positive THIS TEST WAS PERFORMED AT: [facility] [address] [place] [phone] JOSE G DE LEON MD END OF REPORT [address] [address] Scan Report Signed Patient: Jonas Cotton#: [id number]: 1975Acct:[id number]/Sex: 47 / FADM Date: 11/11/22Loc: HO.CTAttending Dr: Aries Nesbitt MD Ordering Physician: Aries Nesbitt MD Date of Service: 11/11/22 Procedure(s): CT chest w IV con Accession Number(s): [id number] cc: Corina Schreiber MD; Aries Nesbitt MD~ EXAMINATION: CT CHEST WITH CONTRAST CLINICAL INFORMATION: Follow-up lung nodules. BALTOMA. COMPARISON: PET/CT 07/30/2022. Chest CT 04/18/2022. TECHNIQUE: Multidetector volumetric CT imaging of the chest was obtained after the administration of 65 mL of Omnipaque 350 intravenous contrast without immediate adverse reactions. Axial MIP volume rendering provided. Sagittal and coronal reformatted images were obtained. This CT examination was performed using dose optimization techniques as appropriate, variously including the following: *Automated exposure control *Adjustment of mA and/or kV according to patient size (this includes techniques or standardized protocols for targeted exams where dose is matched to indication/reason for exam; i.e. extremities or head) *Use of iterative reconstruction technique DLP: 196 mGy-cm FINDINGS: LUNGS: Postoperative changes in the right lung. Numerous pulmonary nodules with billing representative nodules as follows: 1. Right upper lobe along the resection line measuring 10 x 7 mm series 5 image 84. 2. Right upper lobe along the major fiss ure measuring 7 x 5 mm series 5 image 172. 3. Right lower lobe along the medial ple ura measuring 12 x 8 mm series 5 image 263. 4. Left lower lobe measuring 11 x 8 mm s eries 5 image 281. MEDIASTINUM: The imaged thyroid gland appears normal. The thoracic aorta is normal in caliber. Shotty mediastinal lymph nodes measuring up to 1.1 cm. No pericardial effusion. No demonstrable coronary calcium. PLEURA: There is no pleural effusion. No pleural mass or thickening. AXILLA: No adenopathy. UPPER ABDOMEN: Hepatic steatosis. Cholelithiasis. No upper abdominal adenopathy. OSSEOUS STRUCTURES: No suspicious osseous lesions. CT/CT chest w IV con IMPRESSION: Postoperative changes right lung are stable. Numerous bilateral pulmonary nodules and mediastinal lymph nodes as measured above appear stable compared to index study of 06/18/2022. Follow-up as per oncology imaging protocol. Fleischner guidelines do not apply. Dictated By:Nick Roblero MDSigned By:<Electronically signed by Nick Roblero MD in OV>11/13/22 1347 DD/ 0822TD/TT: [employer]ian Blind Worker: RIDDHI Assessment & Plan Assessment & Plan (1) Lung nodules: Comment: (1.1cm RLL nodule suv max 4.6; 0.7cm RUL nodule suv max 2.2 - on 05/16/22 PET) Code(s): R91.8 - Other nonspecific abnormal finding of lung field (2) Lymphoid hyperplasia: Code(s): R59.9 - Enlarged lymph nodes, unspecified (3) Lymphoproliferative disorder: Code(s): D47.9 - Neoplasm of uncertain behavior of lymphoid, hematopoietic and related tissue, unspecified (4) Sjogren's disease: Code(s): M35.00 - Sjogren syndrome, unspecified Qualifiers: Sjogren organ or system involvement: lung involvement Qualified Code(s): M35.02 - Sjogren syndrome with lung involvement (5) Transaminitis: Code(s): R74.01 - Elevation of levels of liver transaminase levels Plan F/U with Dr Xiao CT chest 6 months GI referral F/U 6 months or sooner Orders: Referrals Gastroenterology Referral M35.00 - Sjogren syndrome, unspecified, R74.01 - Elevation of levels of liver transaminase levels Coding Level of Care Code Est Pt Level 4 (55520) Diagnoses Lung nodules R91.8 Lymphoid hyperplasia R59.9 Lymphoproliferative disorder D47.9 Sjogren's syndrome with lung involvement M35.02 Sjogren organ or system involvement: lung involvement Transaminitis R74.01 Time Spent (min) 17
[2023-01-15 10:28] VITALS: PULSE 77; O2SAT 99; BMI 42.5
== END 2023-01-15 10:54 | disposition home or self-care (01) ==
PROVIDERS: PCP Internal Medicine; Visit Provider Hospitalist
DX: R91.8 Other nonspecific abnormal finding of lung field (principal); R59.9 Enlarged lymph nodes, unspecified; D47.9 Neoplasm of uncertain behavior of lymphoid, hematopoietic and related tissue, unspecified; M35.02 Sjogren syndrome with lung involvement; R74.01 Elevation of levels of liver transaminase levels
CPT/HCPCS: 99214

== ENCOUNTER → 2023-01-15 10:15 | Outpatient (BNVA) | payer OTHER, SELFPAY | PROVIDERS: PCP Internal Medicine; Visit Provider Hospitalist | DX: R91.8 Other nonspecific abnormal finding of lung field (principal) ==

== ENCOUNTER 2023-02-13 07:02 | Day surgery (SDC) | payer OTHER, SELFPAY ==
[2023-02-11 12:47] VITALS: BMI 42.5
[2023-02-13 07:07] VITALS: BMI 42.6
[2023-02-13 07:26] VITALS: BP 107/83; PULSE 83; RESP 16; TEMP 36.2; O2SAT 96
[2023-02-13] MEDS: Lactated Ringers 1,000 ML 50 ML IVCONT (07:26)
--- NOTE | 2023-02-13 08:35 | P.CONAN_ITS ---
[facility] Active Problems Active Problems: All Active Problems (Updated 01/15/23 @ 20:52 by Lanre Wilson MD) Fatty liver (Acute) Sjogren's disease (Acute) Transaminitis (Acute) Annual physical exam (Acute) Ankle pain, left (Acute) MALToma (Acute) Lymphoproliferative disorder (Acute) Obesity (Acute) History of cervical cancer (Acute ~2016) Lymphoid hyperplasia (Acute) Lymphadenopathy, mediastinal (Acute) Lung nodules (Acute) History of tobacco use (Acute) Psoriatic arthritis (Acute) Hypothyroid (Acute) GERD (gastroesophageal reflux disease) (Acute) FHx: colon cancer (Acute) Anxiety (Acute) Morbid obesity (Acute) Left nephrolithiasis (Acute) Asymptomatic gallstones (Acute) Elevated LFTs (Acute) Past Medical History Medical History Sjogren's disease Transaminitis Lymphoproliferative disorder History of cervical cancer (~2015) Lymphoid hyperplasia Lymphadenopathy, mediastinal History of tobacco use Arthritis Patient : No Family History Family History Father Lung cancer Colon cancer Mother Breast CA Family history of problems with anesthesia: No Surgical History Surgical History History of lung surgery History of lung biopsy History of lung surgery History of cervical biopsy History of appendectomy (~1998) History of right oophorectomy (~1998) History of hysterectomy for cancer History of Problems with Anesthesia: No Social History Social History Household Members Other:: , 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), 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 Alcohol intake: never Patient Tobacco Use Status: Former Tobacco user e-Cigarette/Vaping Use: Never Used Use of substances other than those prescribed or required for medical reasons: Yes Substance Use Type Other:: Smokes and Edibles Advance Directives: No Advance Directives Information Provided: Yes service: No Current occupational status: employed Cognitive needs: No Hearing needs: No Vision needs: Yes Meds Allergies Allergy/AdvReac Type Severity Reaction Status Date / Time No Known Allergies Allergy Verified 02/13/23 07:25 Active Medications: Current Medications Lactated Ringer's (Lr) 1,000 mls @ 50 mls/hr IVCONT .Q20H LILY Last Admin: 02/13/23 07:26 Dose: 50 mls/hr Home Medications Medication Instructions Recorded Confirmed Last Taken Type omeprazole 20 mg capsule,delayed 20 mg PO DAILY PRN Acid Reflux 05/01/22 02/13/23 02/12/23 History release secukinumab 150 mg/mL subcutaneous 150 mg subcut Q4W 05/01/22 08/08/22 Unknown History syringe (Cosentyx) Exam Height,Weight and Vital Signs: Height 5 ft 3 in Weight 109.032 kg Last Vital Signs Temp 97.2 F 02/13/23 07:26 Pulse 83 02/13/23 07:26 Resp 16 02/13/23 07:26 BP 107/83 02/13/23 07:26 Pulse Ox 96 02/13/23 07:26 O2 Del Method Room Air 02/13/23 07:26 Airway Mallampati Class: II TM Dist: >3cm Neck ROM: Full Loose/Missing/Broken Teeth: No Heart: rrr Lungs: clear Assessment and Plan Final Anesthetic Review Family History of Problems with Anesthesia: No History of Problems with Anesthesia: No NPO: Yes ASA Class: III Final Preanesthetic Review: No Changes in Pt Med Stat, Meds/Allgs Chart Reviewed, Consent Obtained/Reviewed and Anes Risks/Benef Reviewed Patient Risk: Intermediate Procedure Risk: Low Anesthetic Plan Anesthetic Plan: MAC: Disposition: Standard PACU
--- NOTE | 2023-02-13 08:41 | MHC.SHP ---
Pre-Procedural Eval Section A Date of Service: 02/13/23 Section B Chief Complaint: Family history of malignant neoplasm of digestive Details of Present Illness: FH of CRC Relevant Family History (Specify if Yes): Yes Relevant Social History: Other (specify) (THC) Present Medications: see Short Stay Collaborative assessment Medical History: Significant History (Sjogren's disease Transaminitis Lymphoproliferative disorder History of cervical cancer (~2015) Lymphoid hyperplasia Lymphadenopathy, mediastinal History of tobacco use Arthritis) History of Previous Operations: Relevant previous surgery/procedure and date(s) (History of lung surgery History of lung biopsy History of lung surgery History of cervical biopsy History of appendectomy (~1998) History of right oophorectomy (~1998) History of hysterectomy for cancer) Allergies: Allergies Allergy/AdvReac Type Severity Reaction Status Date / Time No Known Allergies Allergy Verified 02/13/23 07:25 Review of Systems Sugical H&P ROS: Negative: Constitution, Cardiovascular, Respiratory, Neurological, Psychiatric, Hem-Onc, Allergic/Immunologic, Gastrointestinal, Genitourinary, Musculoskeletal, Integumentary, Endocrine and Eyes/Ears/Nose/Throat Exam Surgical H&P Exam: Normal: HEENT, Normal: Heart, Normal: Lungs, Normal: Extremities, Normal: Abdomen, Normal: Skin and Normal: Neurological Plan Diagnosis/Plan: Unchanged I have reviewed the history and physical and performed a pertinent physical examination on my patient. No changes have occurred unless specified. Time Spent With Patient Time: Total time managing care of this patient today ____ minutes.
--- NOTE | 2023-02-13 09:25 | P.OP_ITS ---
Operative Note Operative Note Date of Service: 02/13/23 Narrative: Operative Information Procedure Description: EGD, Colonoscopy Indication: GERD, FH of CRC Anesthesia: MAC FLEXIBLE TRANSORAL UPPER GASTROINTESTINAL ENDOSCOPY AND COLONOSCOPY PROCEDURE NOTE UPPER ENDOSCOPY Consent: Indications for the procedure and potential complications of bleeding, perforation, reaction to medications and missed diagnosis were discussed with the patient and informed consent was obtained. Instrument: Olympus GIF H 190 J mid size upper endoscope Monitoring: Vital signs and clinical assessment, continuous EKG monitoring, Pulse oximetry, Carbon Dioxide monitoring and blood pressure monitoring were done throughout the procedure. Procedure: The patient was placed in the left lateral decubitis position and pre-procedure medications were administered and a bite block was placed. The endoscope was inserted into the mouth and advanced under direct vision to the third part of duodenum. A careful inspection was made as the upper endoscope was withdrawn including a retroflexed examination of the proximal stomach; Findings and interventions are described below. Findings: Larynx:normal Esophagus: GE junction at 38 cm, diaphragm hiatus at 38 cm, few small islands of salmon pink mucosa, bx taken, from GEJ and distal esophagus Stomach: few small erosions noted. Biopsies were obtained. Grade 2 flap valve on retroflexed examination of the cardia. Duodenum: Normal bulb and descending duodenum, Intervention: Biopsies as noted above COLONOSCOPY Instrument: Olympus variable stiffness pediatric scope 190L Colonoscopy Monitoring: Vital signs and clinical assessment, continuous EKG monitoring, Pulse oximetry, Carbon Dioxide monitoring and blood pressure monitoring were done throughout the procedure. Colon withdrawal time was 10 minutes. Procedure: The patient was placed in the left lateral decubitis position and pre-procedure medications were administered. After a digital rectal examination of the ano-rectum, the video colonoscope was inserted into the rectum and advanced through the colon to the cecum/TI. The colonoscope was slowly withdrawn in a retrograde panoramic fashion and the colon mucosa was carefully examined including a retroflexed view of the rectum. Findings and interventions are described below. Procedure Difficulty:easy Findings: Terminal Ileum-normal Cecum:normal Right sided retroflexion--normal Ascending Colon: normal Transverse Colon -normal Descending Colon:normal Sigmoid Colon: normal Rectum: Retroflexion with small internal hemorrhoids, grade I Anorectum - normal Colon preparation: [place] Bowel Preparation Scale Right colon; 2 Transverse colon: 2 Left colon; 1-2 (0 = Unprepared colon segment with mucosa not seen due to solid stool that cannot be cleared. 1 = Portion of mucosa of the colon segment seen, but other areas of the colon segment not well seen due to staining, residual stool and/or opaque liquid. 2 = Minor amount of residual staining, small fragments of stool and/or opaque liquid, but mucosa of colon segment seen well. 3 = Entire mucosa of colon segment seen well with no residual staining, small fragments of stool or opaque liquid) Impression and Post Procedure Diagnosis: Endoscopy Findings: erosive gastritis possible small area of barretts mucosa Colonoscopy Findings: internal hemorrhoids Plan: Await Pathology results Repeat Colonoscopy in 5 years due to FH or earlier if clinically indicated High fiber diet leaflet avoid straining at stool, epsom salts and sitz bath, anusol supps or cream check PPI compliance and nsaid use Above findings were reviewed with the patient and relevant handouts were provided if indicated.
[2023-02-13 09:43] VITALS: BP 137/73; PULSE 89; RESP 18; TEMP 36.6; O2SAT 97
[2023-02-13 09:58] VITALS: BP 143/81; PULSE 77; RESP 20; TEMP 36.6; O2SAT 97
== END 2023-02-13 10:31 | disposition home or self-care (01) ==
PROVIDERS: PCP Internal Medicine; Visit Provider Internal Medicine Gastroenterology
PROC: (CPT 43239; principal; 2023-02-13 09:30)
DX: K29.60 Other gastritis without bleeding (principal); K22.70 Barrett's esophagus without dysplasia; K21.9 Gastro-esophageal reflux disease without esophagitis; Z12.11 Encounter for screening for malignant neoplasm of colon; K64.0 First degree hemorrhoids; Z80.0 Family history of malignant neoplasm of digestive organs; E66.01 Morbid (severe) obesity due to excess calories; Z68.41 Body mass index [BMI] 40.0-44.9, adult; Z79.899 Other long term (current) drug therapy; Z87.891 Personal history of nicotine dependence
CPT/HCPCS: 43239; 45378; 88305; 88341; 88342; 88344; J2704

== ENCOUNTER → 2023-02-13 07:02 | Outpatient (BNV) | payer OTHER, SELFPAY | PROVIDERS: PCP Internal Medicine; Visit Provider Internal Medicine Gastroenterology | DX: Z12.11 Encounter for screening for malignant neoplasm of colon (principal); Z80.0 Family history of malignant neoplasm of digestive organs; K64.8 Other hemorrhoids; K29.70 Gastritis, unspecified, without bleeding | CPT/HCPCS: 43239; 45378 ==

== ENCOUNTER 2023-03-03 20:06 | Inpatient (IN) | payer OTHER, SELFPAY ==
--- NOTE | 2023-03-03 | ECG_ITS ---
Test Reason : ABD PAIN Blood Pressure : / mmHG Vent. Rate : 071 BPM Atrial Rate : 071 BPM P-R Int : 158 ms QRS Dur : 094 ms QT Int : 400 ms P-R-T Axes : 032 050 026 degrees QTc Int : 434 ms Normal sinus rhythm Normal ECG No previous ECGs available Referred By: Generic ED Physician Electronically Signed By:DANA CAMPOVERDE
--- NOTE | ~2023-03-03 | US_ITS ---
EXAMINATION: US ABDOMEN LIMITED CLINICAL INFORMATION: Right upper quadrant pain.. COMPARISON: None available. TECHNIQUE: Real-time imaging of the right upper quadrant abdominal viscera. FINDINGS: GALLBLADDER: The gallbladder is physiologically distended with impacted echogenic stones in the neck of gallbladder. Gallbladder wall is thickened measuring 0.4 cm. No pericholecystic fluid collection. COMMON BILE DUCT: Normal in caliber measuring 0.6 cm in diameter. US/US abdomen limited IMPRESSION: Cholelithiasis with mild gallbladder wall thickening. No pericholecystic fluid collection.
[2023-03-03 20:14] VITALS: BP 138/78; PULSE 82; O2SAT 100; BMI 43.4
[2023-03-03 20:18] VITALS: BP 152/80; PULSE 74; RESP 19; TEMP 36.6; O2SAT 99
--- NOTE | 2023-03-03 20:27 | ED_ITS ---
HPI - General Adult General Chief complaint: Abdominal Pain Stated complaint: Abdominal pain, hx of GERD Time Seen by Provider: 03/03/23 20:23 History of Present Illness HPI narrative: 47 years old with past medical history of GERD sp egd on 02/13, cholelithiasis lymphoma, cervical cancer, presents emergency room for epigastric/right upper quadrant/left upper quadrant abdominal pain. Patient reports that pain started 3 hours ago and has progressively gotten worse and is now 10/10 in severity, associated with nausea but no vomiting. Patient also reports that she is being having some chills but did not measure temperature at home. She denies urinary symptoms, denies chest pain or shortness of breath. Patient reports that last bowel movement was yesterday. Denies melena, hematochezia or diarrhea. Related Data Home Medications Medication Instructions Recorded Confirmed omeprazole 20 mg capsule,delayed 20 mg PO DAILY PRN Acid Reflux 05/01/22 02/13/23 release secukinumab 150 mg/mL subcutaneous 150 mg subcut Q4W 05/01/22 08/08/22 syringe (Cosentyx) Previous Rx's Medication Instructions Recorded ondansetron HCl 4 mg tablet 4 mg PO Q8H PRN nausea and 07/03/22 vomiting #20 tabs levothyroxine 25 mcg tablet 25 mcg PO DAILY #90 tabs 09/05/22 escitalopram oxalate 20 mg tablet 20 mg PO DAILY #90 tabs 10/07/22 Allergies Allergy/AdvReac Type Severity Reaction Status Date / Time No Known Allergies Allergy Verified 03/03/23 20:21 Review of Systems 2 Review of Systems: Yes all other systems are reviewed and are negative PMFSH Past Medical History Onset Date is defined in the Problem List Problems that require an onset date and time if occurred within 24 hrs of arrival to the ED Aortic Dissection and Rupture; Neurologic impairment; Cardiopulmonary Arrest; Endotracheal Intubation; Insertion or Replacement of Mechanical Circulatory Assist Device Medical History (Updated 03/03/23 @ 21:41 by Félix Reeves MD) Sjogren's disease Transaminitis Lymphoproliferative disorder History of cervical cancer (~2015) Lymphoid hyperplasia Lymphadenopathy, mediastinal History of tobacco use Arthritis Surgical History (Updated 02/13/23 @ 12:24 by Gema Guillaume) History of esophagogastroduodenoscopy (EGD) Hx of colonoscopy History of lung surgery History of lung biopsy History of lung surgery History of cervical biopsy History of appendectomy (~1998) History of right oophorectomy (~1998) History of hysterectomy for cancer Family History Family History Father Lung cancer Colon cancer Mother Breast CA Social History Social History Household Members Other:: , 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), 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 [facility] Alcohol intake: never Patient Tobacco Use Status: Former Tobacco user e-Cigarette/Vaping Use: Never Used Advance Directives: No Advance Directives Information Provided: No service: No Current occupational status: employed Cognitive needs: No Hearing needs: No Vision needs: Yes Physical Exam ED Vital Signs: Vital Signs - 24 hr 03/03/23 20:18 03/03/23 20:46 Temperature 97.9 F Pulse Rate 74 89 Respiratory Rate 19 18 Blood Pressure 152/80 H 147/85 H Pulse Oximetry 99 97 Oxygen Delivery Method Room Air Room Air BMI result Body Mass Index 43.4 General: Alert, restless Skin: No rash, warm HEENT: Atraumatic, No Exudate or Pharyngeal Erythema Resp: Normal Breath sounds bilaterally Cardio: Regular rate and Rhythm, Normal S1, S2 ABD: Abd tender with voluntary guarding in epigastrium, RUQ and LUQ : No cva tenderness Neuro: Alert, oriented x4, PERRL Strenght 5/5 on all extremities Sensation is preserved in both lower and upper extremities Index to nose: normal Cranial Nerves II-XII grossly intact No dysarthria, or aphasia No neglet. Visual figueroa are normal bilaterally Psych: Cooperative, NO SI Course Reevaluation(s) Reevaluation #1: Bedside ultrasound showed positive Mtz sign and enlarged gallbladder with large stone in the infundibulum and thickening of the perkins. Will order formal ultrasound Time: 20:44 Reevaluation #2: Pain improved. Patient however still have morphine positive sign on physical exam. I personally reviewed the patient's ultrasound imaging that showed positive ultrasound Mtz sign US report: US/US abdomen limited IMPRESSION: Cholelithiasis with mild gallbladder wall thickening. No pericholecystic fluid collection. Consulted surgery for admission for acute cholecystitis--> will admit Time: 21:17 Medications Administered Discontinued Medications Generic Name Dose Route Start Last Admin Trade Name Tee PRN Reason Stop Dose Admin Acetaminophen 1,000 mg in 100 mls @ 400 mls/hr 03/03/23 20:27 03/03/23 20:40 Ofirmev IV 03/03/23 20:41 400 mls/hr ONCE ONE Administration Sodium Chloride 1,000 mls @ 999 mls/hr 03/03/23 20:30 03/03/23 20:40 Ns IV 03/03/23 21:30 999 mls/hr .Q1H1M LILY Administration Morphine Sulfate 4 mg 03/03/23 20:27 03/03/23 20:39 Morphine Sulfate 4 Mg/Ml Cartridge IVPUSH 03/03/23 20:28 4 mg ONCE ONE Administration Protocol Ondansetron HCl 4 mg 03/03/23 20:27 03/03/23 20:39 Ondansetron Hcl 4 Mg/2 Ml Vial IVPUSH 03/03/23 20:28 4 mg ONCE ONE Administration Medical Decision Making Medical Decision Making [facility] Narrative: 47 years old presented emergency room with abdominal pain. Pain seems to be more localized in upper quadrant. Possible differential diagnosis include cholecystitis, biliary colic, pancreatitis. Patient is very restless on arrival and poorly cooperative with physical exam. Will give analgesia and repeat physical exam to evaluate best imaging in patient's case. Consult Healthcare Provider Management of the patient was discussed with: Film Editor (surgery dr Torres: admit to hospital) Lab Data [facility] Lab Attestation statement: I reviewed the patient's lab results. 03/03/23 20:36 03/03/23 20:36 Labs: Lab Results 03/03/23 Range/Units 20:36 WBC 9.0 (4.8-10.8) X10*3/uL RBC 4.78 (4.20-5.50) X10*6/uL Hgb 13.2 (12.0-16.0) g/dl Hct 39.7 (37.0-47.0) % MCV 83.1 (80.0-98.0) fL MCH 27.6 (27.0-33.0) pg MCHC 33.2 (31.0-35.0) g/dl RDW 13.1 (11.0-16.0) % Plt Count 314 (160-400) X10*3/uL MPV 9.9 (9.4-12.3) fL Immature Gran % (Auto) 0.3 (0.0-0.4) % Neut % (Auto) 77.1 H (45-73) % Lymph % (Auto) 15.5 L (20-40) % [place] % (Auto) 5.3 (2-11) % Eos % (Auto) 1.5 (0-4) % Baso % (Auto) 0.3 (0-2) % Lymph # (Auto) 1.4 (1.2-4.9) X10*3/uL [place] # (Auto) 0.5 (0.1-1.2) X10*3/uL Eos # (Auto) 0.1 (0.0-0.4) X10*3/uL Baso # (Auto) 0.0 (0.0-0.2) X10*3/uL Abs Immat Gran (auto) 0.03 (0.00-0.03) X10*3/uL Absolute Neuts (auto) 6.9 (2.0-8.3) x10*3/uL Absolute Nucleated RBC 0.000 (0.0-0.012) X10*3/uL Nucleated RBC % (auto) 0.0 (0.0-0.2) /100WBC Sodium 138 (135-145) mmol/L Potassium 3.7 (3.3-5.1) mmol/L Chloride 105 (96-108) mmol/L Carbon Dioxide 23 (22-29) mmol/L Anion Gap 14 (12-20) BUN 8 L (9-16) mg/dL Creatinine 0.80 (0.5-1.4) mg/dL Estim Creat Clear Calc 104.1 Estimated GFR > 60 Random Glucose 136 H (60-115) mg/dL Calcium 9.4 D (8.4-10.2) mg/dL Total Bilirubin 0.3 (0.0-1.0) mg/dL Direct Bilirubin 0.1 (0.0-0.5) mg/dL AST 33 H (5-31) U/L ALT 70 H (0-31) U/L Alkaline Phosphatase 115 (39-117) U/L Total Protein 7.8 (6.5-8.0) g/dL Albumin 4.1 (3.5-5.0) g/dL Lipase 11 (8-78) U/L Independent Interpretation I performed an independent interpretation of an: Ultrasound (POCUS abd: enlarged gallbladder with thickening of the wall. ) Discharge Plan Discharge Clinical Impression: Acute cholecystitis Patient Disposition: Admitted As Inpatient Prescriptions: No Action levothyroxine 25 mcg tablet 25 mcg PO DAILY Qty: 90 3RF escitalopram oxalate 20 mg tablet 20 mg PO DAILY Qty: 90 3RF omeprazole 20 mg capsule,delayed release(DR/EC) 20 mg PO DAILY PRN (Reason: Acid Reflux) Cosentyx 150 mg/mL syringe 150 mg subcut Q4W ondansetron HCl 4 mg tablet 4 mg PO Q8H PRN (Reason: nausea and vomiting) Qty: 20 0RF
[2023-03-03] MEDS: Morphine Sulfate 4 MG/ML CARTRIDGE IVPUSH (20:39)
[2023-03-03] MEDS: ondansetron HCL 4 MG/2 ML VIAL IVPUSH (20:39)
[2023-03-03] MEDS: 0.9 % Sodium Chloride 1,000 ML 999 ML IV (20:40)
[2023-03-03] MEDS: Acetaminophen 1,000 MG/100 ML PIGGYBACK 400 MG IV (20:40)
[2023-03-03 20:41] LABS: MANUAL DIFF FLAG NO
[2023-03-03 20:43] LABS: Basophils Percent Auto 0.3 % (0-2); Eosinophils Absolute Auto 0.1 X10*3/uL (0.0-0.4); Eosinophils Percent Auto 1.5 % (0-4); Hematocrit 39.7 % (37.0-47.0); Hemoglobin 13.2 g/dl (12.0-16.0); Imm Gran Abs Auto 0.03 X10*3/uL (0.00-0.03); Imm Gran Pct Auto 0.3 % (0.0-0.4); Lymphocytes Absolute Auto 1.4 X10*3/uL (1.2-4.9); Lymphocytes Percent Auto 15.5 % (20-40); Mean Corpuscular HGB Conc 33.2 g/dl (31.0-35.0); Mean Corpuscular Hemoglobin 27.6 pg (27.0-33.0); Mean Corpuscular Volume 83.1 fL (80.0-98.0); Mean Platelet Volume 9.9 fL (9.4-12.3); Monocytes Absolute Auto 0.5 X10*3/uL (0.1-1.2); Monocytes Percent Auto 5.3 % (2-11); Neutrophils Absolute Auto 6.9 x10*3/uL (2.0-8.3); Neutrophils Percent Auto 77.1 % (45-73); Platelet Count 314 X10*3/uL (160-400); Red Blood Count 4.78 X10*6/uL (4.20-5.50); Red Cell Distribution Width 13.1 % (11.0-16.0)
[2023-03-03 20:46] VITALS: BP 147/85; PULSE 89; RESP 18; O2SAT 97
[2023-03-03 20:57] LABS: Alanine Aminotransferase 70 U/L (0-31); Albumin Level 4.1 g/dL (3.5-5.0); Alkaline Phosphatase 115 U/L (39-117); Anion Gap 14 (12-20); Aspartate Amino Transferase 33 U/L (5-31); Bilirubin Direct 0.1 mg/dL (0.0-0.5); Bilirubin Total 0.3 mg/dL (0.0-1.0); Blood Urea Nitrogen 8 mg/dL (9-16); Calcium 9.4 mg/dL (8.4-10.2); Carbon Dioxide 23 mmol/L (22-29); Chloride 105 mmol/L (96-108); Creatinine Clr Calc Pharmacy 104.1; Estimated Glomerular Filt Rate > 60; Glucose Random 136 mg/dL (60-115); Lipase 11 U/L (8-78); Potassium 3.7 mmol/L (3.3-5.1); Sodium 138 mmol/L (135-145); Total Protein 7.8 g/dL (6.5-8.0)
--- NOTE | 2023-03-03 21:34 | PC.NURSE ---
Pt resting comfortably on stretcher with eyes closed. Family remains at bedside.
--- NOTE | 2023-03-03 21:54 | PHA.MEDREC ---
Pharmacy Consult ? Medication Reconciliation Pharmacy has completed the medication reconciliation. Confirmed medication with Patient. Carmen Ghosh CPht
[2023-03-03] MEDS: cefTRIAXone sodium 1 GM in 0.9 % Sodium Chloride 50 ML IV (22:00)
[2023-03-03] MEDS: Piperacillin Sodium/Tazobactam 3.375 GM in 0.9 % Sodium Chloride 50 ML IV (22:45)
[2023-03-03] MEDS: Morphine Sulfate 4 MG/ML CARTRIDGE 3 MG IVPUSH (22:52)
[2023-03-03] MEDS: metroNIDAZOLE/NS 500 MG/100 ML PIGGYBACK 100 MG IV (23:09)
[2023-03-03 23:47] VITALS: BP 158/61; PULSE 54; RESP 14; TEMP 36.5; O2SAT 93
[2023-03-04] VITALS (9 sets, daily range): BP systolic 149–196; BP diastolic 77–96; PULSE 67–97; RESP 16–22; TEMP 36.1–37.6; O2SAT 92–98; BMI 43.8
[2023-03-04] MEDS: 0.9 % Sodium Chloride 1,000 ML 200 ML IVCONT (00:13)
[2023-03-04] MEDS: ondansetron HCL 4 MG/2 ML VIAL IVPUSH (01:27)
[2023-03-04] MEDS: Morphine Sulfate 4 MG/ML CARTRIDGE 3 MG IVPUSH ×2 (02:54→07:46)
[2023-03-04] MEDS: Piperacillin Sodium/Tazobactam 3.375 GM in 0.9 % Sodium Chloride 50 ML IV (03:39)
[2023-03-04 04:47] LABS: UPreg QC Valid YES; Urine Pregnancy NEGATIVE (NEGATIVE)
[2023-03-04] MEDS: Levothyroxine Sodium 25 MCG TABLET PO (05:06)
[2023-03-04] MEDS: Lactated Ringers 1,000 ML 80 ML IVCONT (06:31)
--- NOTE | 2023-03-04 07:35 | P.HPGS_ITS ---
History of Present Illness History of Present Illness Date of Service: 03/04/23 Chief complaint: acute cholecystitis Narrative: Génesis Cotton is a 47 year old female admitted last night by the ER because of abdominal pain. She describes it as mostly on the upper abdomen. She this s tarted suddenly at around 03:00 o'clock in the afternoon yesterday. She not recall any aggravating or precipitating factor. She denies any nausea or vomiting. She says that the pain was severe and intense for a few hours yesterday afternoon. She has multiple medical problems including morbid obesity, history of cervical cancer, lung nodules, GERD, and abnormal LFTs. She has a history of a wedge biopsy of a lung nodule last year and this turned out to be a lymphoproliferative process. She is being followed closely by pulmonology. Review of Systems Constitutional: Constitutional: Denies chills and Denies fever(s) Cardiovascular: Cardiovascular: Denies chest pain, Denies dyspnea and Reports dyspnea on exertion Respiratory: Respiratory: Denies cough, Denies dyspnea and Reports dyspnea on exertion Gastrointestinal: Gastrointestinal: Denies hematochezia and Denies change in bowel habits Genitourinary: Genitourinary: Denies hematuria Musculoskeletal: Musculoskeletal: Reports back pain, Reports myalgias and Repo rts limited range of motion Neurologic: Denies focal weakness and Denies convulsions Psychiatric: Psychiatric: Denies depression and Denies mood swings PMFSH Past Medical History Medical History Morbid obesity Sjogren's disease Transaminitis Lymphoproliferative disorder History of cervical cancer (~2015) Lymphoid hyperplasia Lymphadenopathy, mediastinal History of tobacco use Arthritis Family History Family History Father Lung cancer Colon cancer Mother Breast CA Surgical History Surgical History History of esophagogastroduodenoscopy (EGD) Hx of colonoscopy History of lung surgery History of lung biopsy History of lung surgery History of cervical biopsy History of appendectomy (~1998) History of right oophorectomy (~1998) History of hysterectomy for cancer Social History Social History Household Members: Children Household Members Other:: , 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), 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 If so, by whom?: No Do you feel safe in your current relationship?: No Current Relationship Is there a partner from a previous relationship who is making you feel unsafe now?: No Are you made to feel afraid or neglected: No Are you DNR?: No Advance Directives: No Advance Directives Information Provided: No Do you have thoughts of harming others: None Do you have a plan to hurt others: No Plan Recently lost weight without trying: No Eating poorly because of decreased appetite: No Nutrition Risks: No Nutritional Risk Patient : No : No Poor oral hygiene: No service: No Current occupational status: employed Cognitive needs: No Hearing needs: No Vision needs: Yes Meds Allergies Allergy/AdvReac Type Severity Reaction Status Date / Time No Known Allergies Allergy Verified 03/04/23 09:41 Active Medications: Current Medications Lactated Ringer's (Lr) 1,000 mls @ 80 mls/hr IVCONT .[id number] [facility] Last Admin: 03/04/23 06:31 Dose: 80 mls/hr Piperacillin Sod/Tazobactam (Sod 3.375 gm/ Sodium Chloride) 50 mls @ 100 mls/hr IV Q6H [facility] Last Infusion: 03/04/23 04:11 Dose: Infused Levothyroxine Sodium (Levothyroxine Sodium 25 Mcg Tablet) 25 mcg PO DAILY@0600 [facility] Last Admin: 03/04/23 05:06 Dose: 25 mcg Morphine Sulfate (Morphine Sulfate 4 Mg/Ml Cartridge) 3 mg IVPUSH Q4H PRN; Protocol PRN Reason: Pain, Severe (Pain Scale 7-10) Last Admin: 03/04/23 02:54 Dose: 3 mg Ondansetron HCl (Ondansetron Hcl 4 Mg/2 Ml Vial) 4 mg IVPUSH Q6H PRN PRN Reason: nausea Last Admin: 03/04/23 01:27 Dose: 4 mg Sodium Chloride (0.9 % Sodium Chloride Flush 3 Ml Syringe) 3 ml IVFLUSH QSHIFT [facility] Last Admin: 03/04/23 00:00 Dose: Not Given Home Medications Medication Instructions Recorded Confirmed Last Taken Type omeprazole 20 mg capsule,delayed 20 mg PO DAILY PRN Acid Reflux 05/01/22 03/03/23 03/03/23 History release secukinumab 150 mg/mL subcutaneous 150 mg subcut Q4W 05/01/22 03/03/23 Unknown History syringe (Cosentyx) Physical Exam Vital Signs: Vital Signs: Last Vital Signs Temp 98.2 F 03/04/23 03:22 Pulse 67 03/04/23 03:22 Resp 16 03/04/23 03:22 BP 161/84 H 03/04/23 03:22 Pulse Ox 98 03/04/23 03:22 O2 Del Method Room Air 03/04/23 03:22 BMI result Body Mass Index 43.4 Const: Other: Appears morbidly obese General: comfortable and no acute distress Orientation/consciousness: patient oriented x3 Neck: Neck: Yes no lymphadenopathy Resp: Auscultation: clear to auscultation bilaterally Cardio: Rhythm: regular rhythm GI: Other: Tender on the upper abdomen mostly on the right Palpation (GI): Soft to palpation, nontender and no guarding Neuro: General: patient oriented x3 Results Results Labs: Short CBC 03/03/23 Range/Units 20:36 WBC 9.0 (4.8-10.8) X10*3/uL Hgb 13.2 (12.0-16.0) g/dl Hct 39.7 (37.0-47.0) % Plt Count 314 (160-400) X10*3/uL BMP 03/03/23 20:36 Sodium 138 Potassium 3.7 Chloride 105 Carbon Dioxide 23 BUN 8 L Creatinine 0.80 Calcium 9.4 D Liver Function 03/03/23 Range/Units 20:36 Total Bilirubin 0.3 (0.0-1.0) mg/dL Direct Bilirubin 0.1 (0.0-0.5) mg/dL AST 33 H (5-31) U/L ALT 70 H (0-31) U/L Alkaline Phosphatase 115 (39-117) U/L Albumin 4.1 (3.5-5.0) g/dL Urine 03/04/23 Range/Units 04:39 Urine Test NEGATIVE (NEGATIVE) Abdominal ultrasound report/results: report reviewed and image reviewed Assessment and Plan (1) Acute cholecystitis: Status: Acute She has upper abdominal pain, mostly in the right side, along with tenderness. Her ultrasound shows gallstones with some gallbladder wall edema without pericholecystic fluid. Her bilirubin is normal. She remains tender and wants to proceed with surgery. I explained to her the technique of laparoscopic cholecystectomy and possible open cholecystectomy. I reviewed the risks including but not limited to bleeding, infections, injury to other organs including bowel, liver bile duct, bile leak, retained stones, as well as the benefits and alternatives. She has given consent She understands that her perioperative risks are higher than average in view of her multiple medical problems. (2) Morbid obesity: Status: Acute Quality Stroke Does the patient have a stroke diagnosis?: No VTE Prior VTE?: No VTE Risk Level:: Medical - moderate - high VTE Device Contraindication: N/A - Device Ordered VTE Drug Contraindication: Treatment Not Indicated Procedures Date of Service Date of Service: 03/04/23
[2023-03-04 07:38] LABS: Hematocrit 38.8 % (37.0-47.0); Hemoglobin 12.4 g/dl (12.0-16.0); Mean Corpuscular Hemoglobin 27.6 pg (27.0-33.0); Mean Corpuscular Volume 86.4 fL (80.0-98.0); Mean Platelet Volume 10.6 fL (9.4-12.3); Platelet Count 273 X10*3/uL (160-400); Red Blood Count 4.49 X10*6/uL (4.20-5.50); Red Cell Distribution Width 13.3 % (11.0-16.0); White Blood Count 7.8 X10*3/uL (4.8-10.8)
[2023-03-04] MEDS: 0.9 % Sodium Chloride Flush 3 ML SYRINGE IVFLUSH (07:45)
[2023-03-04 08:01] LABS: Alanine Aminotransferase 94 U/L (0-31); Albumin Level 3.6 g/dL (3.5-5.0); Alkaline Phosphatase 89 U/L (39-117); Anion Gap 11 (12-20); Aspartate Amino Transferase 73 U/L (5-31); Bilirubin Direct 0.2 mg/dL (0.0-0.5); Bilirubin Total 0.4 mg/dL (0.0-1.0); Blood Urea Nitrogen 6 mg/dL (9-16); Calcium 8.8 mg/dL (8.4-10.2); Carbon Dioxide 25 mmol/L (22-29); Chloride 104 mmol/L (96-108); Creatinine Clr Calc Pharmacy 120.7; Estimated Glomerular Filt Rate > 60; Glucose Random 98 mg/dL (60-115); Potassium 3.8 mmol/L (3.3-5.1); Sodium 136 mmol/L (135-145); Total Protein 6.8 g/dL (6.5-8.0)
--- NOTE | 2023-03-04 10:02 | P.CONAN_ITS ---
HPI - Anesthesia Eval Consult details Narrative: for jean-pierre PMFSH Active Problems Active Problems: All Active Problems (Updated 03/04/23 @ 07:37 by Lawrence Torres MD) Morbid obesity (Acute) Acute cholecystitis (Acute) Fatty liver (Acute) Sjogren's disease (Acute) Transaminitis (Acute) Annual physical exam (Acute) Ankle pain, left (Acute) MALToma (Acute) Lymphoproliferative disorder (Acute) Obesity (Acute) History of cervical cancer (Acute ~2016) Lymphoid hyperplasia (Acute) Lymphadenopathy, mediastinal (Acute) Lung nodules (Acute) History of tobacco use (Acute) Psoriatic arthritis (Acute) Hypothyroid (Acute) GERD (gastroesophageal reflux disease) (Acute) FHx: colon cancer (Acute) Anxiety (Acute) Left nephrolithiasis (Acute) Asymptomatic gallstones (Acute) Elevated LFTs (Acute) Past Medical History Medical History Morbid obesity Sjogren's disease Transaminitis Lymphoproliferative disorder History of cervical cancer (~2015) Lymphoid hyperplasia Lymphadenopathy, mediastinal History of tobacco use Arthritis Family History Family History Father Lung cancer Colon cancer Mother Breast CA Family history of problems with anesthesia: No Surgical History Surgical History History of esophagogastroduodenoscopy (EGD) Hx of colonoscopy History of lung surgery History of lung biopsy History of lung surgery History of cervical biopsy History of appendectomy (~1998) History of right oophorectomy (~1998) History of hysterectomy for cancer History of Problems with Anesthesia: No Social History Social History Household Members: Children Household Members Other:: , 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), 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 If so, by whom?: No Do you feel safe in your current relationship?: No Current Relationship Is there a partner from a previous relationship who is making you feel unsafe now?: No Are you made to feel afraid or neglected: No Are you DNR?: No Advance Directives: No Advance Directives Information Provided: No Do you have thoughts of harming others: None Do you have a plan to hurt others: No Plan Recently lost weight without trying: No Eating poorly because of decreased appetite: No Nutrition Risks: No Nutritional Risk Patient : No : No Poor oral hygiene: No service: No Current occupational status: employed Cognitive needs: No Hearing needs: No Vision needs: Yes Meds Allergies Allergy/AdvReac Type Severity Reaction Status Date / Time No Known Allergies Allergy Verified 03/04/23 09:41 Active Medications: Current Medications Lactated Ringer's (Lr) 1,000 mls @ 80 mls/hr IVCONT .[id number] [facility] Last Admin: 03/04/23 06:31 Dose: 80 mls/hr Piperacillin Sod/Tazobactam (Sod 3.375 gm/ Sodium Chloride) 50 mls @ 100 mls/hr IV Q6H [facility] Last Admin: 03/04/23 09:43 Dose: Not Given Levothyroxine Sodium (Levothyroxine Sodium 25 Mcg Tablet) 25 mcg PO DAILY@0600 [facility] Last Admin: 03/04/23 05:06 Dose: 25 mcg Morphine Sulfate (Morphine Sulfate 4 Mg/Ml Cartridge) 3 mg IVPUSH Q4H PRN; Protocol PRN Reason: Pain, Severe (Pain Scale 7-10) Last Admin: 03/04/23 07:46 Dose: 3 mg Ondansetron HCl (Ondansetron Hcl 4 Mg/2 Ml Vial) 4 mg IVPUSH Q6H PRN PRN Reason: nausea Last Admin: 03/04/23 01:27 Dose: 4 mg Sodium Chloride (0.9 % Sodium Chloride Flush 3 Ml Syringe) 3 ml IVFLUSH QSHIFT [facility] Last Admin: 03/04/23 07:45 Dose: 3 ml Home Medications Medication Instructions Recorded Confirmed Last Taken Type omeprazole 20 mg capsule,delayed 20 mg PO DAILY PRN Acid Reflux 05/01/22 03/03/23 03/03/23 History release secukinumab 150 mg/mL subcutaneous 150 mg subcut Q4W 05/01/22 03/03/23 Unknown History syringe (Cosentyx) Exam Height,Weight and Vital Signs: Height 5 ft 3 in Weight 112.128 kg Last Vital Signs Temp 97.9 F 03/04/23 09:59 Pulse 69 03/04/23 09:59 Resp 18 03/04/23 09:59 BP 157/88 H 03/04/23 09:59 Pulse Ox 97 03/04/23 09:59 O2 Del Method Room Air 03/04/23 09:59 Pertinent Lab Results Pertinent Lab Results: Laboratory Tests 03/03/23 03/04/23 03/04/23 20:36 04:39 06:20 WBC 9.0 7.8 RBC 4.78 4.49 Hgb 13.2 12.4 Hct 39.7 38.8 MCV 83.1 86.4 MCH 27.6 27.6 MCHC 33.2 32.0 RDW 13.1 13.3 Plt Count 314 273 MPV 9.9 10.6 Immature Gran % (Auto) 0.3 Neut % (Auto) 77.1 H Lymph % (Auto) 15.5 L [place] % (Auto) 5.3 Eos % (Auto) 1.5 Baso % (Auto) 0.3 Lymph # (Auto) 1.4 [place] # (Auto) 0.5 Eos # (Auto) 0.1 Baso # (Auto) 0.0 Abs Immat Gran (auto) 0.03 Absolute Neuts (auto) 6.9 Absolute Nucleated RBC 0.000 0.000 Nucleated RBC % (auto) 0.0 0.0 Sodium 138 136 Potassium 3.7 3.8 Chloride 105 104 Carbon Dioxide 23 25 Anion Gap 14 11 L BUN 8 L 6 L Creatinine 0.80 0.69 Estim Creat Clear Calc 104.1 120.7 Estimated GFR > 60 > 60 Random Glucose 136 H 98 Calcium 9.4 D 8.8 D Total Bilirubin 0.3 0.4 Direct Bilirubin 0.1 0.2 AST 33 H 73 H ALT 70 H 94 H Alkaline Phosphatase 115 89 Total Protein 7.8 6.8 Albumin 4.1 3.6 Lipase 11 Urine Test NEGATIVE Airway Mallampati Class: III TM Dist: <=3cm Neck ROM: Full Heart: rrr Lungs: cta Assessment and Plan Assessment Anesthesia Assessment: Anesthesia Plan Discussed and Chart Reviewed Final Anesthetic Review Family History of Problems with Anesthesia: No History of Problems with Anesthesia: No NPO: Yes ASA Class: III Final Preanesthetic Review: No Changes in Pt Med Stat, Meds/Allgs Chart Reviewed, Consent Obtained/Reviewed and Anes Risks/Benef Reviewed Patient Risk: Intermediate Procedure Risk: Intermediate Anesthetic Plan Anesthetic Plan: GA Disposition: Standard PACU
--- NOTE | 2023-03-04 10:42 | MHC.CM.PN ---
Female 47 DX Cholecystitis O.R. 03/04/23 She lives with other family members. She is independent with all functional mobility. A new HCP has been documented. DP home self care. Patient's mother will provide transportation home.
--- NOTE | 2023-03-04 12:26 | P.OP_ITS ---
Operative Note Operative Note Date of Service: 03/04/23 Narrative: Preop diagnosis: Acute calculous cholecystitis Postop diagnosis: Acute calculous cholecystitis, with gallbladder hydrops Procedure: Laparoscopic cholecystectomy Surgeon: Lawrence Torres MD career services assistant: GUILLAUME Castellon The patient is a 47-year-old female, with multiple medical problems including lymphoproliferative disorder, morbid obesity, Sjogren's disease, admitted last night because of epigastric and right upper quadrant pain. Her ultrasound showed gallstones with gallbladder wall thickening consistent with acute cholecystitis. She remained tender and with pain. She therefore wanted to pro ceed with cholecystectomy. She understood the technique of the planned procedure as well as the risks, benefits, and alternatives. She was brought to the operating room. She was placed supine under general anesthesia via endotracheal tube. The abdomen was prepped nd draped in the usual sterile fashion. A surgical time-out was done. The patient was receiving scheduled IV Zosyn. I made a supraumbilical incision on the skin using blade 15. This was carried down through the full-thickness of the skin and subcutaneous fat down to the fascia. The patient was morbidly obese with a very thick subcutaneous fat so it took us a while before we are able to reach the fascia and expose this. The fascia was incised. The peritoneum was entered. Through this incision a Toshia port was introduced. Pneumoperitoneum was introduced to a pressure of 15 mm hg. From here on the rest of the procedure was done under vision with the 10 mm 30 degree laparoscope. With laparoscopic visualization I inserted a 5/12 mm port in the epigastric area below the subcostal margin. Two 5 mm ports were introduced via small incisions below the subcostal margin along the anterior axillary line and midclavicular line. Graspers were placed through these working ports. The patient was placed in head-up and [id number] position. The gallbladder was seen. This was markedly distended and very edematous. We could not apply grasper so we had to decompress this with an aspirating needle. This allowed us to apply a grasper eventually at the fundus of the gallbladder. The gallbladder contents were clear mucousy, consistent with hydrops. The grasper was used to retract the gallbladder cephalad. There was note of thick adhesions on the rest of the body of the gallbladder. I applied a grasper on an area clear of adhesions to retract the gallbladder a little more. We had to do a lot of careful dissection of the distal body and neck of the gallbladder using the [place] dissector as well as blunt dissection with the tip of the suction timber management technician. This part of the procedure took an extended period time until was able to clearly see the neck. I therefore reposition the grasper on the pouch of the gallbladder to use this to retract the gallbladder laterally. Prior to this, we had noticed a large stone impacted at the neck of the gallbladder. I had to carefully milked this what is the proximal part of the gallbladder. At this point therefore the gallbladder was being retracted in a cephalad and lateral fashion. The gallbladder appeared very edematous, and markedly inflamed.. I proceeded to gently dissect the neck of the gallbladder using the [place] dissector to remove thickened and inflamed fibro areolar tissue until I was able to visualize the cystic duct. I continued to dissect the cystic duct until this was clearly seen. This allowed me to see its confluence with the neck of the gallbladder. By doing so we were also able to achieve a critical view of the hepatocystic triangle. I could see what appeared to be the cystic artery running alongside the cystic duct. There were no other structures in the area. With the confluence of the cystic duct with the neck of the gallbladder confirmed, I proceeded to apply clips on the cystic duct, with 2 clips being applied distally. The cystic duct was transected between clips with Endo scissors. I continued to then define the cystic artery. I then proceeded to apply clips as well in the same fashion. The cystic artery was transected between clips with Endo scissors The gallbladder retracted away from the liver bed. I proceeded to use the electrocautery spatula and the hook electrocautery to divide across the hilum. I incised the peritoneum of the gallbladder at the interface with the liver bed using the electrocautery spatula. I proceeded to define a plane of dissection along this incision using a combination of sharp dissection with electrocautery hook as well as blunt dissection with the tip. I the gallbladder off of the liver bed along this plane. We continued with this dissection until the entire gallbladder was completely from the liver bed. I retrieved the gallbladder through an endobag through the umbilical incision. The liver bed was examined carefully. I cauterized any oozing area on the bed. There was no other signs of any bleeding or any bile leak. I observed all 4 quadrants of the peritoneum. There was no other pathology seen or any evidence of bowel injury. There was note however of thick adhesions on the right side of the abdomen from previous port site for her for ectomy. I reobserved the area of dissection. I copiously irrigated and suctioned the irrigant fluid. Once hemostasis was confirmed, I desufflated through the port sites. I removed all ports under vision with the laparoscope. I removed the umbilical port last. The fascia of the umbilical incision was closed with a [id number] Dexon 0 stitch. Skin closure was achieved on all incisions using Polysorb 4-0 subcuticular running sutures. Steri-Strips and dressings were applied. All incisions were infiltrated with Marcaine 0.5% for postop analgesia. The procedure was then completed. The patient tolerated procedure well. There were no immediate complications. Initial and final counts of sponges and instruments were correct. Estimated blood loss was about 25 cc. The patient was extubated without difficulty and transferred to the recovery room with stable vital signs.
[2023-03-04] MEDS: oxyCODONE HCl Immed Release 5 MG TABLET PO (14:02)
[2023-03-04] MEDS: Omeprazole 20 MG CAPSULE.DR PO (14:03)
--- NOTE | 2023-03-04 15:10 | PM.EVENT ---
Event Note Date of Service: 03/04/23 Event Note: Seen postop Underwent laparoscopic cholecystectomy earlier Looks comfortable Pain control adequate Stable vital signs Abdomen soft Doing well Plan to DC home tomorrow Mother updated Time Spent With Patient Time: Total time managing care of this patient today ____ minutes.
[2023-03-04] MEDS: oxyCODONE HCl Immed Release 5 MG TABLET 10 MG PO (19:26)
[2023-03-05] MEDS: Lactated Ringers 1,000 ML 80 ML IVCONT (01:20)
[2023-03-05] MEDS: oxyCODONE HCl Immed Release 5 MG TABLET 10 MG PO (02:23)
[2023-03-05 04:29] VITALS: BP 130/73; PULSE 74; RESP 18; TEMP 36.7; O2SAT 97
[2023-03-05] MEDS: Omeprazole 20 MG CAPSULE.DR PO (05:51)
[2023-03-05] MEDS: Levothyroxine Sodium 25 MCG TABLET PO (05:51)
[2023-03-05 07:30] VITALS: BP 134/81; PULSE 72; RESP 16; TEMP 36.5; O2SAT 95
--- NOTE | 2023-03-05 07:53 | PM.PNGS ---
Subjective Subjective Date of Service: 03/05/23 <Zara Castellon PA-C - Last Filed: 03/05/23 07:56> 03/05/23 <Lawrence Torres MD - Last Filed: 03/05/23 09:20> Interval history: C/o mild incisional pain, comfortable. Tolerating solid diet. OOB and ambulated to bathroom without difficulty. Wants to go home. <Zara Castellon PA-C - Last Filed: 03/05/23 07:56> Physical Exam Vital Signs: Vital Signs: Last Vital Signs Temp 97.7 F 03/05/23 07:30 Pulse 72 03/05/23 07:30 Resp 16 03/05/23 07:30 BP 134/81 03/05/23 07:30 Pulse Ox 95 03/05/23 07:30 O2 Del Method Room Air 03/05/23 07:30 O2 Flow Rate 3 03/04/23 13:10 BMI result Body Mass Index 43.8 <DILLON Baird Last Filed: 03/05/23 07:56> Const: General: comfortable, no acute distress and alert <Zara Castellon PA-C - Last Filed: 03/05/23 07:56> Orientation/consciousness: patient oriented x3 <DILLON Baird Last Filed: 03/05/23 07:56> Resp: Effort & Inspection: normal respiratory effort <DILLON Baird Last Filed: 03/05/23 07:56> GI: Inspection: No distended and Yes incision (dressings intact) <DILLON Baird Last Filed: 03/05/23 07:56> Palpation (GI): Soft to palpation, Tenderness to palpation present (GI) (mild incisional), no guarding and not rigid <DILLON Baird Last Filed: 03/05/23 07:56> Skin: General skin exam: no rashes or lesions noted and no jaundice <DILLON Baird Last Filed: 03/05/23 07:56> Neuro: General: patient oriented x3 and moves all extremities <DILLON Baird Last Filed: 03/05/23 07:56> Objective Data Active Medications Acetaminophen (Acetaminophen 325 Mg Tablet) 650 mg PO Q6H PRN PRN Reason: Pain, Mild (Pain Scale 1-3) Docusate Sodium (Docusate Sodium 100 Mg Capsule) 100 mg PO BID PRN PRN Reason: Constipation Escitalopram Oxalate (Escitalopram Oxalate 20 Mg Tablet) 20 mg PO DAILY [facility] Lactated Ringer's (Lr) 1,000 mls @ 80 mls/hr IVCONT .[id number] [facility] Last Admin: 03/05/23 01:20 Dose: 80 mls/hr Documented By: AUBREY Levothyroxine Sodium (Levothyroxine Sodium 25 Mcg Tablet) 25 mcg PO DAILY@0600 [facility] Last Admin: 03/05/23 05:51 Dose: 25 mcg Documented By: AUBREY Morphine Sulfate (Morphine Sulfate 4 Mg/Ml Cartridge) 3 mg IVPUSH Q4H PRN; Protocol PRN Reason: Pain, Severe (Pain Scale 7-10) Last Admin: 03/04/23 07:46 Dose: 3 mg Documented By: RENUKA Omeprazole (Omeprazole 20 Mg Capsule.) 20 mg PO DAILY@0630 [facility] Last Admin: 03/05/23 05:51 Dose: 20 mg Documented By: AUBREY Ondansetron HCl (Ondansetron Hcl 4 Mg/2 Ml Vial) 4 mg IVPUSH Q6H PRN PRN Reason: nausea Last Admin: 03/04/23 01:27 Dose: 4 mg Documented By: RIGOBERTO Oxycodone HCl (Oxycodone Hcl Immed Release 5 Mg Tablet) 5 mg PO Q4H PRN PRN Reason: Pain, Moderate(Pain Scale 4-6) Last Admin: 03/04/23 14:02 Dose: 5 mg Documented By: RENUKA Oxycodone HCl (Oxycodone Hcl Immed Release 5 Mg Tablet) 10 mg PO Q4H PRN PRN Reason: Pain, Severe (Pain Scale 7-10) Last Admin: 03/05/23 02:23 Dose: 10 mg Documented By: AUBREY Sodium Chloride (0.9 % Sodium Chloride Flush 3 Ml Syringe) 3 [facility] Last Admin: 03/05/23 07:04 Dose: Not Given Documented By: THEA Non-Admin Reason: IV Running <Zara Castellon PA-C - Last Filed: 03/05/23 07:56> Labs CBC & Chem 7: 03/04/23 06:20 03/04/23 06:20 <Zara Castellon PA-C - Last Filed: 03/05/23 07:56> Labs: Laboratory Results - last 24 hr 03/04/23 06:20 Anion Gap 11 L Estim Creat Clear Calc 120.7 Estimated GFR > 60 Random Glucose 98 Calcium 8.8 D Total Bilirubin 0.4 Direct Bilirubin 0.2 AST 73 H ALT 94 H Alkaline Phosphatase 89 Total Protein 6.8 Albumin 3.6 <Zara Castellon PA-C - Last Filed: 03/05/23 07:56> Procedures Date of Service Date of Service: 03/05/23 <Zara Castellon PA-C - Last Filed: 03/05/23 07:56> 03/05/23 <Lawrence Torres MD - Last Filed: 03/05/23 09:20> Progress Note: A&P Assessment and plan (1) Acute cholecystitis: Status: Acute <aZra Castellon PA-C - Last Filed: 03/05/23 07:56> Assessment and Plan: Status post laparoscopic cholecystectomy Says she had a good night Good pain control Tolerating diet Abdomen soft Looks well Okay to DC home Follow-up and discharge instructions explained to patient Seen and examined independently <Lawrence Torres MD - Last Filed: 03/05/23 09:20> (2) Morbid obesity: Status: Acute <Zara Castellon PA-C - Last Filed: 03/05/23 07:56> (3) S/P laparoscopic cholecystectomy: Status: Acute <Zara Castellon PA-C - Last Filed: 03/05/23 07:56> Assessment and Plan: POD #1 s/p lap jean-pierre for acute cholecystitis. Doing well post op. Pain well controlled and tolerating solid diet. Abd benign with appropriate post op tenderness, dressings intact. Stable for dc to home today. Can f/u in [address] Torres. Comfortable with plan. <Zara Castellon PA-C - Last Filed: 03/05/23 07:56> Time Spent With Patient Time: Total time managing care of this patient today ____ minutes. <Zara Castellon PA-C - Last Filed: 03/05/23 07:56> Quality Stroke Does the patient have a stroke diagnosis?: No <Zara Castellon PA-C - Last Filed: 03/05/23 07:56> VTE Prior VTE?: No <Zara Castellon PA-C - Last Filed: 03/05/23 07:56> VTE Risk Level:: Medical - moderate - high <DILLON Baird Last Filed: 03/05/23 07:56> VTE Device Contraindication: N/A - Device Ordered <Zara Castellon PA-C - Last Filed: 03/05/23 07:56> VTE Drug Contraindication: Treatment Not Indicated <Zara Castellon PA-C - Last Filed: 03/05/23 07:56>
[2023-03-05] MEDS: Escitalopram Oxalate 20 MG TABLET PO (08:15)
--- NOTE | 2023-03-05 08:50 | MHC.CM.PN ---
Patient is discharged to home today self care. She has arranged for her Mother to provide transportation home.
--- NOTE | 2023-03-05 09:04 | HO.POSTANES ---
Post Anesthesia Evaluation Post Anesthesia Evaluation Date of Service: 03/05/23 Vital Signs: Vital Signs Temp Pulse Resp BP Pulse Ox O2 Del Method 03/05/23 07:30 97.7 F 72 16 134/81 95 Room Air 03/05/23 04:29 98.0 F 74 18 130/73 97 Room Air Anesthesia: General Endotracheal-GETA Mental Status: Awake Pain Control: Satisfactory Nausea/Vomiting: None Hydration: Adequate Anesthesia-Related Issues: No Anes. Related Issues
[2023-03-05] MEDS: oxyCODONE HCl Immed Release 5 MG TABLET PO (10:03)
--- NOTE | 2023-03-05 12:06 | PM.DS ---
DS: Providers Provider Date of Service: 03/05/23 Date of admission: 03/03/23 21:42 Date of discharge: 03/05/23 Primary care physician: Corina Schreiber MD Attending physician on admission: Lawrence Torres Attending physician on discharge: Lawrence Torres DS: Diagnosis Discharge Diagnosis (1) Acute cholecystitis: Status: Acute (2) Morbid obesity: Status: Acute (3) S/P laparoscopic cholecystectomy: Status: Acute DS: Summary Hospital Course Hospital Course: HPI AT ADMISSION:Génesis Cotton is a 47 year old female admitted last night by the ER because of abdominal pain. She describes it as mostly on the upper abdomen. She this started suddenly at around 03:00 o'clock in the afternoon yesterday. She not recall any aggravating or precipitating factor. She denies any nausea or vomiting. She says that the pain was severe and intense for a few hours yesterday afternoon. She has multiple medical problems including morbid obesity, history of cervical cancer, lung nodules, GERD, and abnormal LFTs. She has a history of a wedge biopsy of a lung nodule last year and this turned out to be a lymphoproliferative process. She is being followed closely by pulmonology. HOSPITAL COURSE: Her ultrasound shows gallstones with some gallbladder wall edema without pericholecystic fluid. She remains tender and wants to proceed with surgery. It was recommended to proceed with laparoscopic cholecystectomy and possible open cholecystectomy. She was added onto the OR schedule for the following day. On 03/04/23, a laparoscopic cholecystectomy was performed by Dr. Vargas without complication. The patient tolerated the procedure well. She had an uncomplicated recovery course. On POD #1, she felt well with good pain control. She was tolerating a solid diet. Her abdomen was benign with intact dressings and appropriate post op tenderness. She was ambulating without difficulty. She felt ready for discharge. She was discharged to home on 03/05/23 in stable condition. She is to follow up in 2 weeks in the office. Status at Discharge Functional status at discharge: independent ambulation Overall status at discharge: patient is progressing back to baseline Time Attestation Discharge coordination time: Less than 30 minutes Quality: Safe Use of Opioids Does Pt have an Active Cancer Diagnosis on the Problem List?: No Quality: Stroke Does the patient have a stroke diagnosis?: No Physical Exam Vital Signs: Vital Signs: Last Vital Signs Temp 97.7 F 03/05/23 07:30 Pulse 72 03/05/23 07:30 Resp 16 03/05/23 07:30 BP 134/81 03/05/23 07:30 Pulse Ox 95 03/05/23 07:30 O2 Del Method Room Air 03/05/23 07:30 O2 Flow Rate 3 03/04/23 13:10 BMI result Body Mass Index 43.8 Const: General: comfortable, no acute distress and alert Orientation/consciousness: patient oriented x3 Resp: Effort & Inspection: normal respiratory effort GI: Inspection: No distended and Yes incision (dressings intact) Palpation (GI): Soft to palpation, Tenderness to palpation present (GI) (mild incisional), no guarding and not rigid Percussion: Yes normal to percussion Skin: General skin exam: no rashes or lesions noted Neuro: General: patient oriented x3 and moves all extremities DS: Data Data Completed and Pending Pending studies at discharge: Pending at discharge 03/04/23 12:09 Surgical [PTH] Routine Discharge Plan Discharge Anticipated Discharge Date/Time: 03/05/23 07:48 Patient Disposition: Home, Self-Care Discharge Diagnosis: s/p laparoscopic cholecystectomy Referrals: Corina Schreiber MD [Primary Care Provider] - 1 Week Lawrence Torres MD [Physician] - 2 Weeks Discharge Medications: New oxycodone 5 mg tablet 5 mg PO Q4H PRN (Reason: pain (scale score 7-10)) Qty: 24 0RF Rx Instructions: Partial Fill upon patient request. Continued levothyroxine 25 mcg tablet 25 mcg PO DAILY Qty: 90 3RF escitalopram oxalate 20 mg tablet 20 mg PO DAILY Qty: 90 3RF omeprazole 20 mg capsule,delayed release(DR/EC) 20 mg PO DAILY PRN (Reason: Acid Reflux) Cosentyx 150 mg/mL syringe 150 mg subcut Q4W ondansetron HCl 4 mg tablet 4 mg PO Q8H PRN (Reason: nausea and vomiting) Qty: 20 0RF Discharge Orders: Discharge Order (Routine); Ordered 03/05/23 Ordered By: Zara Castellon Diet: Low fat, low cholesterol Activity on Discharge: No heavy lifting Stand Alone Forms: Patient Portal Discharge page, Work/School Release Activity Restrictions/Additional Instructions: If the incision area is tender, you may apply an ice pack for short intervals (No more than 20 minutes on, followed by at least 20 minutes off). Do not apply heat. Do not use creams, lotions, or topical antibiotics. These can cause infection or allergic reaction. Ok to shower 24 hours after your surgery. Remove bandaids in 2 days and replace. You have steri strips (small white cloth strips) covering your incision- these will fall off ~1 week. Follow up in office with Dr. Torres in 2 weeks. ([phone]) No heavy lifting (>10-20lbs) or strenuous activity! Call Your Doctor If: -Your temperature exceeds 101.5? F -You experience excessive pain or swelling -You have an unexpected reaction to medication -You have excessive bleeding -You experience continued vomiting/nausea -Your incision begins to separate -Your incision shows signs of infection such as increased redness, swelling, excessive pain, drainage (light blood or clear fluid is normal) or heat Care Plan Goals: Return to baseline health and resume normal activities following recovery period. Health Concerns: acute cholecystitis Plan of Treatment: s/p laparoscopic cholecystectomy f/u in office in 2 weeks Assessment: Doing well post op Discharge Date/Time: 03/05/23 10:39
== END 2023-03-05 10:39 | disposition home or self-care (01) | DRG 263 ==
LOC: HO.ED 21:41 → HO.EDOVER 21:49 → HO.S3 23:15
PROVIDERS: Admitting Provider Surgery; Emergency Provider Student in an Organized Health Care Education/Training Program; PCP Internal Medicine; Visit Provider Surgery
PROC: 0FT44ZZ Resection of Gallbladder, Percutaneous Endoscopic Approach (ICD-10-PCS; CPT 47562; principal; 2023-03-04 14:30)
DX: K80.00 Calculus of gallbladder with acute cholecystitis without obstruction (principal); K82.1 Hydrops of gallbladder; E66.01 Morbid (severe) obesity due to excess calories; M35.00 Sjogren syndrome, unspecified; D47.9 Neoplasm of uncertain behavior of lymphoid, hematopoietic and related tissue, unspecified; Z79.620 Long term (current) use of immunosuppressive biologic; Z68.41 Body mass index [BMI] 40.0-44.9, adult; Z90.2 Acquired absence of lung [part of]; Z87.891 Personal history of nicotine dependence; Z79.890 Hormone replacement therapy; Z79.899 Other long term (current) drug therapy
CPT/HCPCS: 47562; 36415; 76705; 80048; 80076; 81025; 83690; 85025; 85027; 88304; 93005; 99024; 99285; J0131; J0696; J1100; J1170; J1836; J2250; J2270; J2405; J2543; J2704; J2795; J3010; J7120

== ENCOUNTER → 2023-03-03 20:23 | Outpatient (BNV) | payer OTHER, SELFPAY | PROVIDERS: Admitting Provider Surgery; Emergency Provider Student in an Organized Health Care Education/Training Program; PCP Internal Medicine; Visit Provider Internal Medicine | DX: K81.0 Acute cholecystitis (principal) | CPT/HCPCS: 93010 ==

== ENCOUNTER → 2023-03-03 21:42 | Outpatient (BNV) | payer OTHER, SELFPAY | PROVIDERS: Admitting Provider Surgery; Emergency Provider Student in an Organized Health Care Education/Training Program; PCP Internal Medicine; Visit Provider Surgery | DX: K81.0 Acute cholecystitis (principal); E66.01 Morbid (severe) obesity due to excess calories | CPT/HCPCS: 47562; 99024; 99222; 99499 ==

== ENCOUNTER 2023-03-17 11:53 | Outpatient (AMB) | payer OTHER, SELFPAY ==
--- NOTE | 2023-03-17 11:55 | MHC.PC.OV ---
Vital Signs 03/17/23 11:57 Height 5 ft 3 in Weight 238 lb BMI 42.2 BP 106/64 Blood Pressure Location Rt brachial Position Sitting Pulse 81 Pulse Source Pulse Oximeter Pulse Oximetry (%) 98 Oxygen Delivery Method Room Air Intake Visit Reasons: Follow up gallbladder surgery Intake Note: P is here today for TCM. Allergies No Known Allergies Allergy (Verified 03/17/23 11:57) Medication List - Last Reconciled 03/17/23 by Corina Schreiber MD escitalopram oxalate 20 mg PO DAILY levothyroxine 25 mcg PO DAILY omeprazole 20 mg PO DAILY PRN ondansetron HCl 4 mg PO Q8H PRN secukinumab (Cosentyx) 150 mg subcut Q4W tirzepatide (weight loss) (Zepbound) 2.5 mg (0.5 mL) subcut QWEEK 4 weeks Tobacco use date assessed: 03/17/23 Dental Screening Dental Screen Date: 03/17/23 Did you have a dental visit in the last 12 months?: Yes Did you have a dental problem in the last 6 months where you did not have access to dental care?: No Was dental information given to patient?: Patient has dentist HPI Follow up gallbladder surgery HPI Details Patient presents for the follow-up for cholecystectomy 2 weeks ago. Patient recovered well. She is interested in trying medication to help her lose weight. Patient tried multiple weight management programs but is not interested in bariatric surgery. TCM TCM Information Date of Discharge 03/05/23 Discharged From [facility] Interactive Contact Date (Reference documentation from this date) 03/06/23 [facility] Medical History (Updated 03/17/23 @ 13:13 by Corina Schreiber MD) Morbid obesity Sjogren's disease Transaminitis Lymphoproliferative disorder History of cervical cancer (~2015) Lymphoid hyperplasia Lymphadenopathy, mediastinal History of tobacco use Arthritis Surgical History (Updated 03/14/23 @ 13:57 by VEENA Schafer) History of laparoscopic cholecystectomy (03/04/23) History of esophagogastroduodenoscopy (EGD) Hx of colonoscopy History of lung surgery History of lung biopsy History of lung surgery History of cervical biopsy History of appendectomy (~1998) History of right oophorectomy (~1998) History of hysterectomy for cancer Family History Father Lung cancer Colon cancer Mother Breast CA Social History Household Members: Children Household Members Other:: , 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), 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 1. Little interest or pleasure in doing things: not at all 2. Feeling down, depressed, or hopeless: not at all 3. Trouble falling or staying asleep, or sleeping too much: not at all 4. Feeling tired or having little energy: not at all 5. Poor appetite or overeating: not at all 6. Feeling bad about yourself - or that you are a failure or have let yourself or your family down: not at all 7. Trouble concentrating on things, such as reading the newspaper or watching television: not at all 8. Moving or speaking so slowly that other people could have noticed. Or the opposite - being so fidgety or restless that you have been moving around a lot more than usual: not at all 9. Thoughts that you would be better off or of hurting yourself in some way: not at all Total score: 0 Depression Screening Interpretation: Negative Depression Screening Done: Yes Source: Developed by Drs. Nacho Stanford, Nicolle Badillo, Jose J Cruz and colleagues, with an educational carlos from [employer]. Thrive Questionnaire Date Thrive assessed: 03/17/23 I am a: Patient What is your living situation today?: I have a steady place to live Within the past 12 months, did the food you bought not last and you didn't have the money to get more?: Never true Within the past 12 months, did you worry whether your food would run out before you got money to buy more?: Never true Do you have trouble paying for medicines?: No Do you have trouble getting transportation to medical appointments?: No Do you have trouble paying your heating and electricity bill?: No Do you have trouble taking care of your child, family member or friend?: No Do you have trouble with day-to-day activities such as bathing, preparing meals, shopping, managing finances, etc.?: No Are you currently unemployed and looking for a job?: No Are you interested in more education?: No Please select the resources that you would like help with: None Currently or been in a relationship where the following occur: no concerns reported THRIVE Score: 0 AUDIT C Alcohol Use Questionnaire (AUDIT-C) 1. How often do you have a drink containing alcohol?: Never 3. How often do you have six or more drinks on one occasion?: Never Total Score: 0 RUDOLPH-7 AMB Questionnaire RUDOLPH-7 Date RUDOLPH - 7 assessed: 03/17/23 Feeling nervous, anxious, or on edge: 0 = Not at all Not being able to stop or control worryin = Not at all Worrying too much about different things: 0 = Not at all Trouble relaxin = Not at all Being so restless that it is hard to sit still: 0 = Not at all Becoming easily annoyed or irritable: 0 = Not at all Feeling afraid as if something awful might happen: 0 = Not at all Total RUDOLPH-7 score (0-4 normal; 5-9 mild; 10-14 moderate; 15-21 severe): 0 Source: Developed by Drs. Nacho Stanford, Nicolle Badillo, Jose J Cruz and colleagues, with an educational carlos from [employer]. Review of Systems Const All systems reviewed & are unremarkable except as noted in HPI and below Reports no additional complaints Eyes Reports no additional complaints ENT Reports no additional complaints Card Reports no additional complaints Resp Reports no additional complaints GI Reports no additional complaints Reports no additional complaints Physical exam (Primary Care) Vital Signs: Last Vital Signs Pulse 81 03/17/23 11:57 BP 106/64 03/17/23 11:57 Pulse Ox 98 03/17/23 11:57 Oxygen Delivery Method Room Air 03/17/23 11:57 BMI result Body Mass Index 42.2 Tobacco/Smoking Status: Tobacco use Status Tobacco use date assessed 03/17/23 03/17/23 12:01 Patient Tobacco Use Status Former Tobacco user 03/17/23 12:01 e-Cigarette/Vaping Use Never Used 03/17/23 12:01 PHQ-9: PHQ-9 Score PHQ-9: Total score 0 03/17/23 13:14 Depression Screening Interpretation: Negative Thrive Assessment: Date of Thrive Assessment Date Thrive assessed 03/17/23 03/17/23 12:54 Currently or been in a relationship where the following occur: no concerns reported Const General: no acute distress HENMT Face and sinus: Yes normal facial exam Neck Neck: Yes supple Resp Effort & Inspection: normal respiratory effort Auscultation: clear to auscultation bilaterally Cardio Rhythm: regular rhythm Heart sounds: S1 normal heart sound present and S2 normal heart sound present GI Inspection: Yes normal to inspection Palpation (GI): Soft to palpation Percussion: Yes normal to percussion Auscultation: normal bowel sounds Assessment and Plan Assessment & Plan (1) Elevated LFTs: Comment: Ultrasound consistent with hepatosteatosis Code(s): R79.89 - Other specified abnormal findings of blood chemistry Plan: Decrease caloric intake, low simple carbohydrates and low saturated fats diet, increase physical activity discussed with the patient. Patient's BMI is 42.2. She will try Zepbound for 1 month. Patient will return for fasting blood work including hepatitis workup (2) Hypothyroid: Code(s): E03.9 - Hypothyroidism, unspecified Plan: Continue levothyroxine Orders: Orders Comprehensive Nucla. Panel Fast Today E03.9 - Hypothyroidism, unspecified, R79.89 - Other specified abnormal findings of blood chemistry Lipid Panel Today E03.9 - Hypothyroidism, unspecified, R79.89 - Other specified abnormal findings of blood chemistry TSH reflex Free T4 Today E03.9 - Hypothyroidism, unspecified Medications: New tirzepatide (weight loss) (Zepbound) 2.5 mg (0.5 mL) subcut QWEEK 4 weeks 2 mL 0RF tirzepatide (weight loss) (Zepbound) 2.5 mg (0.5 mL) subcut QWEEK 4 weeks 2 mL 0RF Coding Level of Care Code Est Pt Level 4 (18414) Diagnoses Elevated LFTs R79.89 Hypothyroid E03.9
[2023-03-17 11:57] VITALS: BP 106/64; PULSE 81; O2SAT 98; BMI 42.2
== END 2023-03-17 13:16 | disposition home or self-care (01) ==
PROVIDERS: PCP Internal Medicine; Visit Provider Internal Medicine
DX: R79.89 Other specified abnormal findings of blood chemistry (principal); E03.9 Hypothyroidism, unspecified
CPT/HCPCS: 99214

== ENCOUNTER 2023-03-17 14:43 | Outpatient (AMB) | payer OTHER, SELFPAY ==
[2023-03-17 15:03] VITALS: BP 125/64; PULSE 79; BMI 42.3
--- NOTE | 2023-03-17 15:03 | MHC.OFFVIS ---
Intake Vital Signs 03/17/23 15:03 Height 5 ft 3 in Weight 239 lb BMI 42.3 BP 125/64 Blood Pressure Location Rt brachial Position Sitting Pulse 79 Intake Visit Reasons: [facility] [place] Note: Patient is seen in office for post op assessment post laparoscopic cholecystectomy. Pt c/o: reports no complaints at this time pertaining to surgery. Leather Grainer Required: No Accompanied by: Self / Same As Patient Allergies No Known Allergies Allergy (Verified 03/17/23 15:04) HPI s/p [place]an[place]pierre[place] [facility] [place] HPI Details 47-year-old female here for follow-up postop. She had undergone laparoscopic cholecystectomy as an inpatient for acute cholecystitis last 03/04/2022. She tolerated the procedure well. She says she is doing well at home. She denies any complaints. She has good oral intake. [facility] Medical History Morbid obesity Sjogren's disease Transaminitis Lymphoproliferative disorder History of cervical cancer (~2015) Lymphoid hyperplasia Lymphadenopathy, mediastinal History of tobacco use Arthritis Surgical History History of laparoscopic cholecystectomy (03/04/23) History of esophagogastroduodenoscopy (EGD) Hx of colonoscopy History of lung surgery History of lung biopsy History of lung surgery History of cervical biopsy History of appendectomy (~1998) History of right oophorectomy (~1998) History of hysterectomy for cancer Family History Father Lung cancer Colon cancer Mother Breast CA Social History Household Members: Children Household Members Other:: , 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), 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 Housing: Condominium Do you presently have visiting nurse or other home services: No Alcohol intake: never Patient Tobacco Use Status: Former Tobacco user e-Cigarette/Vaping Use: Never Used Substance Use Type: Marijuana service: No Current occupational status: employed Cognitive needs: No Hearing needs: No Vision needs: Yes Review of Systems Const Denies chills and Denies fever(s) Card Denies chest pain, Denies dyspnea and Denies dyspnea on exertion Resp Denies cough, Denies dyspnea and Denies dyspnea on exertion GI Denies hematochezia and Denies change in bowel habits Denies hematuria Musc Denies back pain and Denies limited range of motion Neuro Denies focal weakness and Denies convulsions Psych Denies depression and Denies mood swings Physical Exam Vital Signs: Last Vital Signs Pulse 79 03/17/23 15:03 BP 125/64 03/17/23 15:03 BMI result Body Mass Index 42.3 Const General: comfortable and no acute distress Resp Effort & Inspection: normal respiratory effort GI Other: All incisions are well healed, not infected, no hernias Palpation (GI): Soft to palpation, not firm, nontender and no guarding Assessment & Plan Assessment & Plan (1) S/P laparoscopic cholecystectomy: Code(s): Z90.49 - Acquired absence of other specified parts of digestive tract Plan: She is doing very well postoperatively. All incisions are well healed. Her path report shows acute and chronic calculous cholecystitis She was advised to avoid any lifting more than 20 lb for at least 2 more weeks. She can follow up on a p.r.n. basis. Coding Level of Care Code Global IP (97113) Diagnoses S/P laparoscopic cholecystectomy Z90.49
== END 2023-03-17 15:12 | disposition home or self-care (01) ==
PROVIDERS: PCP Internal Medicine; Visit Provider Surgery
DX: Z90.49 Acquired absence of other specified parts of digestive tract (principal)
CPT/HCPCS: 99024

== ENCOUNTER → 2023-03-17 14:43 | Outpatient (BNVA) | payer OTHER, SELFPAY | PROVIDERS: PCP Internal Medicine; Visit Provider Surgery ==

== ENCOUNTER 2023-05-15 09:25 | Outpatient (AMB) | payer OTHER, SELFPAY ==
--- NOTE | 2023-05-15 09:31 | MHC.OFFVIS ---
Intake Vital Signs 05/15/23 09:34 Height 5 ft 3 in Weight 235 lb 14.314 oz BMI 41.8 BP 120/69 Blood Pressure Location Lt brachial Position Sitting Pulse 65 Intake Visit Reasons: colo results Intake Note: Génesis presents in the office as a follow up colonoscopy. C: Called a couple weeks ago because her stomach was acting up for a week. It took a week but things have gotten better. She does not have much hunger and not sure what is happening - she said that she is not here for that. Allergies No Known Allergies Allergy (Verified 05/15/23 09:35) HPI HPI Comments History of Present Illness Details A 47 y/o female f/u after EGD/ colon 02/13- Hernández- ? [path [id number] [facility] Medical History (Updated 05/26/23 @ 13:20 by Soniya Huizar PA-C) Morbid obesity Sjogren's disease Transaminitis Lymphoproliferative disorder History of cervical cancer (~2015) Lymphoid hyperplasia Lymphadenopathy, mediastinal History of tobacco use Arthritis Surgical History History of laparoscopic cholecystectomy (03/04/23) History of esophagogastroduodenoscopy (EGD) Hx of colonoscopy History of lung surgery History of lung biopsy History of lung surgery History of cervical biopsy History of appendectomy (~1998) History of right oophorectomy (~1998) History of hysterectomy for cancer Family History Father Lung cancer Colon cancer Mother Breast CA Social History Household Members: Children Household Members Other:: , 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), 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 Housing: Condominium Do you presently have visiting nurse or other home services: No Alcohol intake: never Patient Tobacco Use Status: Former Tobacco user e-Cigarette/Vaping Use: Never Used Substance Use Type: Marijuana service: No Current occupational status: employed Cognitive needs: No Hearing needs: No Vision needs: Yes Physical Exam Vital Signs: Last Vital Signs Pulse 65 05/15/23 09:34 BP 120/69 05/15/23 09:34 BMI result Body Mass Index 41.8 Results Reviewed Results Reviewed: Impression and Post Procedure Diagnosis: Endoscopy Findings: erosive gastritis possible small area of barretts mucosa Colonoscopy Findings: internal hemorrhoids Plan: Await Pathology results Repeat Colonoscopy in 5 years due to FH or earlier if clinically indicated High fiber diet leaflet avoid straining at stool, epsom salts and sitz bath, anusol supps or cream check PPI compliance and nsaid use Above findings were reviewed with the patient and relevant handouts were provided if indicated. me: Génesis Cotton Age/Sex: 47/F Attending: Estefanía Hernández MD : 1975 Submitted by: Estefanía Hernández MD Copies to: Corina Schreiber MD MR #: [id number] Status: [facility] Collected: 02/13/23 Location: [facility] Received: 02/13/23 THIS IS A CORRECTED REPORT This is a corrected report. Any previous versions are stored internally and are available if necessary. ADDENDUM REPORT Addendum Addendum #1 (A): CD3 and CD20 immunostains show a predominantly T-cell lymphocyte population with a minority of B- cells, and a mixture of kappa and lambda on kappa/lambda multiplex stain. The findings are consistent with a reactive process, with no evidence of B-cell lymphoproliferative process. Electronically Signed By: Loreta Bravo 02/19/23 1201 Diagnosis A. Stomach, biopsy: Gastric mucosa with dense lymphoid infiltrate; negative for H pylori, intestinal metaplasia and dysplasia (see comment). B. Gastroesophageal junction, biopsy: Squamocolumnar mucosa with hyperplasia and mild chronic inflammation; negative for intestinal metaplasia and dysplasia. C. Esophagus, distal, biopsy: Squamous mucosa with no specific change; no columnar mucosa present. Comment: (A): Immunostains are pending; addendum to follow. Note: Report corrected to add additional stains to the list at the end of the report. Diagnoses are unchanged. Clinical History Pre-Op Dx: Family history of malignant neoplasm of digestive organs Patient: Génesis Cotton Age/Sex: 47/F MR#: [id number] Page 1 of 2 Assessment & Plan Assessment & Plan (1) GERD (gastroesophageal reflux disease): Code(s): K21.9 - Gastro-esophageal reflux disease without esophagitis (2) FHx: colon cancer: Comment: father age unknown Code(s): Z80.0 - Family history of malignant neoplasm of digestive organs (3) Abnormal findings on esophagogastroduodenoscopy (EGD): Comment: reactive process could be inflammation, infection, related to medications etc --other dx: crohns, lymphoma, celiac, h pylori Code(s): R19.8 - Other specified symptoms and signs involving the digestive system and abdomen Plan: repeat the EGD and re biopsy incl duodenum , reactive process just means could be inflammation, infection, related to medications etc --other dx: crohns, lymphoma, celiac, h pylori Plan repeat the EGD and re biopsy incl duodenum Patient Instructions: repeat the EGD and re biopsy incl duodenum Where procedure, rare risks -need for escort Encouraged to call questions or concerns Continue plan of care Coding Level of Care Code Est Pt Level 3 (76809) Diagnoses GERD (gastroesophageal reflux disease) K21.9 FHx: colon cancer Z80.0 Abnormal findings on esophagogastroduodenoscopy (EGD) R19.8 Time Spent (min) 25
[2023-05-15 09:34] VITALS: BP 120/69; PULSE 65; BMI 41.8
== END 2023-05-15 10:04 | disposition home or self-care (01) ==
PROVIDERS: PCP Internal Medicine; Visit Provider Physician Assistant
DX: K21.9 Gastro-esophageal reflux disease without esophagitis (principal); Z80.0 Family history of malignant neoplasm of digestive organs; R19.8 Other specified symptoms and signs involving the digestive system and abdomen
CPT/HCPCS: 99213

== ENCOUNTER → 2023-05-15 09:25 | Outpatient (BNVA) | payer OTHER, SELFPAY | PROVIDERS: PCP Internal Medicine; Visit Provider Physician Assistant ==

== ENCOUNTER → 2023-06-25 07:45 | Outpatient (BNV) | payer OTHER, SELFPAY | PROVIDERS: PCP Internal Medicine; Visit Provider Radiology Diagnostic Radiology | DX: Z12.31 Encounter for screening mammogram for malignant neoplasm of breast (principal) | CPT/HCPCS: 77063; 77067 ==

== ENCOUNTER 2023-06-25 07:47 | Outpatient (REF) | payer OTHER, SELFPAY | END 2023-06-25 07:48 | disposition home or self-care (01) | LOC: HO.MAMMO 07:47 | PROVIDERS: PCP Internal Medicine; Visit Provider Internal Medicine | DX: Z12.31 Encounter for screening mammogram for malignant neoplasm of breast (principal) | CPT/HCPCS: 77063; 77067 ==

== ENCOUNTER 2023-06-27 10:13 | Outpatient (AMB) | payer OTHER, SELFPAY ==
[2023-06-27 10:15] VITALS: BP 128/78; PULSE 91; O2SAT 99; BMI 43.6
--- NOTE | 2023-06-27 10:15 | A.OFFPC_ITS ---
Vital Signs 06/27/23 10:15 Height 5 ft 3 in Weight 246 lb BMI 43.6 BP 128/78 Blood Pressure Location Lt brachial Position Sitting Pulse 91 Pulse Source Pulse Oximeter Pulse Oximetry (%) 99 Oxygen Delivery Method Room Air Intake Visit Reasons: [place] eye? Intake Note: Pt is here today for a sick visit. Pt c/o R eye redness, pain and some yellow discharge coming out of the R eye. Allergies No Known Allergies Allergy (Verified 06/27/23 10:15) Medication List - Last Reconciled 06/27/23 by Corina Schreiber MD albuterol sulfate 90 mcg/actuation 2 puffs inhalation QID PRN escitalopram oxalate 20 mg PO DAILY levothyroxine 25 mcg PO DAILY loperamide (Imodium A-D) 2 mg PO Q6H PRN omeprazole 20 mg PO DAILY PRN ondansetron HCl 4 mg PO Q8H PRN secukinumab (Cosentyx) 150 mg subcut Q4W semaglutide (weight loss) (Wegovy) 0.25 mg (0.5 mL) subcut QWEEK Tobacco use date assessed: 06/27/23 Dental Screening Dental Screen Date: 03/17/23 HPI [place] eye? HPI Details Patient complains of right eye feeling itchy burning and has a yellow discharge since this morning. Her daughter was treated for conjunctivitis a week ago. [facility] Medical History Morbid obesity Sjogren's disease Transaminitis Lymphoproliferative disorder History of cervical cancer (~2015) Lymphoid hyperplasia Lymphadenopathy, mediastinal History of tobacco use Arthritis Surgical History History of laparoscopic cholecystectomy (03/04/23) History of esophagogastroduodenoscopy (EGD) Hx of colonoscopy History of lung surgery History of lung biopsy History of lung surgery History of cervical biopsy History of appendectomy (~1998) History of right oophorectomy (~1998) History of hysterectomy for cancer Family History Father Lung cancer Colon cancer Mother Breast CA Social History Household Members: Children Household Members Other:: , 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 Nacho Stanford, Nicolle Badillo, Jsoe J Cruz and colleagues, with an educational carlos from [employer]. Review of Systems Const All systems reviewed & are unremarkable except as noted in HPI and below Reports no additional complaints Eyes Reports no additional complaints ENT Reports no additional complaints Card Reports no additional complaints Resp Reports no additional complaints GI Reports no additional complaints Reports no additional complaints Physical exam (Primary Care) Vital Signs: Last Vital Signs Pulse 91 06/27/23 10:15 BP 128/78 06/27/23 10:15 Pulse Ox 99 06/27/23 10:15 Oxygen Delivery Method Room Air 06/27/23 10:15 BMI result Body Mass Index 43.6 Tobacco/Smoking Status: Tobacco use Status Tobacco use date assessed 06/27/23 06/27/23 10:15 Patient Tobacco Use Status Former Tobacco user 06/27/23 10:15 e-Cigarette/Vaping Use Never Used 06/27/23 10:15 Thrive Assessment: Date of Thrive Assessment Date Thrive assessed 03/17/23 06/27/23 10:15 Const General: no acute distress HENMT Face and sinus: Yes normal facial exam Eyes Other: Injected conjunctiva on the right eye with yellowish thick discharge, pupil equal and reactive to light Assessment and Plan Assessment & Plan (1) Conjunctivitis: Code(s): H10.9 - Unspecified conjunctivitis Plan: Cipro eye drops prescribed, supportive care discussed with the patient Medications: New ciprofloxacin HCl 0.3% put 1-2 drps in affected eye(s) every 2hr up to 8 times/day x2days; then 4 times/day x5days ophthalmic (eye) 2.5 mL 0RF Discontinued semaglutide (weight loss) (Weraghavvkatlyn) administer weeks 1 through 4 of therapy Discontinued Reason: Doctor's Order 0.25 mg (0.5 mL) subcut QWEEK 2 mL 0RF Coding Level of Care Code Est Pt Level 3 (39112) Diagnoses Conjunctivitis H10.9
== END 2023-06-27 11:03 | disposition home or self-care (01) ==
PROVIDERS: PCP Internal Medicine; Visit Provider Internal Medicine
DX: H10.9 Unspecified conjunctivitis (principal)
CPT/HCPCS: 99213

== ENCOUNTER 2023-07-18 15:24 | Outpatient (AMB) | payer OTHER, SELFPAY ==
[2023-07-18 15:33] VITALS: PULSE 77; O2SAT 96; BMI 43.9
--- NOTE | 2023-07-18 15:33 | A.OFFVIS_ITS ---
Vital Signs 07/18/23 15:33 Height 5 ft 3 in Weight 248 lb 0.321 oz BMI 43.9 Pulse 77 Pulse Source Pulse Oximeter Pulse Oximetry (%) 96 Oxygen Delivery Method Room Air Intake Visit Reasons: Pulmonary nodules Child Welfare Worker Required: No Allergies No Known Allergies Allergy (Verified 07/18/23 15:34) HPI Comments Details: The patient is a 47 year woman with a known history of cervical cancer status post hysterectomy back in 2017 and also found to have pulmonary nodules around the same time as well. The patient did undergo a CT-guided biopsy at that time which was nondiagnostic in very painful and traumatic 4. Ultimately she was referred to thoracic surgery where she underwent a wedge resection of the right lower lobe nodular density. The diagnosis was of an atypical lymphoid hyperplasia. No evidence of any lymphoma that was documented. The patient healed well from that. And she had been doing otherwise well. She was in her usual state health until more recently when she started developing acute onset abdominal pain. She went to the ER which she had a CT scan of the abdomen and pelvis. The CT scan of the abdomen picked up additional pulmonary nodules in therefore she was referred to Pulmonary. I did review her CT scan from [facility] from 2017 demonstrating the nodular densities primarily on the right side and also reviewed the pathology. We then compared that to her recent CT scan of the chest demonstrating no numerous peripheral base pulmonary nodules in a bronchovascular distribution primarily at the bases. Appears to be something hematogenous sleep spreading therefore metastatic disease is a potential concern. She does have a history of cancer in the past as well. There is also a history of lung cancer in the family. As far as her screenings she is 46 years old and she is scheduled to have a mammogram soon. She has not had any colonoscopies. Based on that CT scan findings and nodular densities measuring greater than 8 mm in size and also some evidence on lymphadenopathy I will request a PET scan to better address the issue. 07/17/2022 The patient is here for a pulmonary follow up visit. She did undergo the wedge biopsy. The patient is recovering well. Her biopsy demonstrated evidence of a lympho-prolifererative process. Blood dyscresia is a concern. She did have a biopsy back in 2017 which demonstrated lymphoid hyperplasia. But now numeruous nodules, some which her PET avid. She has an appointment with hematology oncology next week. In the mean time the patient has psoriasis increasing her risk for lymphopriliferative condiitons. We will request additional bloodwork. 01/15/2023 the patient is here for a pulmonary follow-up visit. The patient overall has been doing well from a respiratory status. She recovered well from surgery. She did follow-up with Oncology. She did have her PET scan and subsequently an MRI after that. At this point things are stable. We did do blood work. Appears that her Sjogren's antibodies are elevated and she also is treated for psoriatic arthritis. Explained to her that these 2 conditions can resulting in therefore proliferative conditions and therefore the circumstances that she finds. Therefore treating her audio me conditions will be crucial and try to minimize the lymphoproliferative component. The patient does have multiple pulmonary nodules. We did look at her last CT scan done in November 2022. Will continue to monitor the CT scans every 6 months in view of the size of the nodules. It is reassuring that the nodules have not changed in size when compared to her CT scan from June 2022. 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 At this point the patient will continue with current therapy and will follow-up with a CT scan in 6 months. 07/18/2023 the patient is here for a pulmonary follow-up visit. Overall the patient is doing okay. She is recovering from a cholecystectomy. She had a bad bout of cholecystitis. Now she is doing better. The patient also has been dealing with weight gain. She is considering weight management to help her with her significant weight gain that is affecting her overall health in addition to her respiratory status. She does complaint of dyspnea on exertion. Mild in severity. She continues to follow closely with GI and also Rheumatology. She did have an endoscopy. Interestingly the biopsies of her stomach did demonstrate areas of lymphocytic hyperplasia. Going along with her underlying lymphoproliferative condition. The patient does have underlying pulmonary nodules. Will continue to monitor them. The last CT scan was back in 11/06/2022. Will plan to repeat the CT scan fall 2023. will follow-up after that. [facility] Medical History Morbid obesity Sjogren's disease Transaminitis Lymphoproliferative disorder History of cervical cancer (~2016) Lymphoid hyperplasia Lymphadenopathy, mediastinal History of tobacco use Arthritis Surgical History History of laparoscopic cholecystectomy (03/04/23) History of esophagogastroduodenoscopy (EGD) Hx of colonoscopy History of lung surgery History of lung biopsy History of lung surgery History of cervical biopsy History of appendectomy (~1998) History of right oophorectomy (~1998) History of hysterectomy for cancer Family History Father Lung cancer Colon cancer Mother Breast CA Social History Household Members: Children Household Members Other:: , 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), 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: [facility] Do you presently have visiting nurse or other home services: No Alcohol intake: never Patient Tobacco Use Status: Former Tobacco user e-Cigarette/Vaping Use: Never Used Substance Use Type: Marijuana service: No Current occupational status: employed Cognitive needs: No Hearing needs: No Vision needs: Yes Review of Systems Const Denies fatigue, Denies fever(s), Denies malaise, Denies night sweats and Reports weight gain Eyes Denies change in vision ENT Denies change in voice Card Denies chest pain Resp Denies cough and Denies wheezing GI Reports as per HPI Musc Reports no additional complaints Skin/Breast Denies rash Neuro Reports no additional complaints Endo Denies fatigue Isiah/Lymph Denies easy bruising and Denies lymphadenopathy Aller/Immun Denies wheezing Physical Exam Vital Signs: Last Vital Signs Pulse 77 07/18/23 15:33 Pulse Ox 96 07/18/23 15:33 Oxygen Delivery Method Room Air 07/18/23 15:33 BMI result Body Mass Index 43.9 Const General: comfortable HEENT Head: Yes normocephalic Eyes General: appearance normal, both eyes and all related structures Neck Neck: Yes supple Chest Chest palpation & inspection: normal inspection of the chest Resp Effort & Inspection: normal respiratory effort Auscultation: clear to auscultation bilaterally Cardio Rate: regular rate Rhythm: regular rhythm Heart sounds: S1 normal heart sound present and S2 normal heart sound present GI Palpation (GI): Soft to palpation Skin General skin exam: no rashes or lesions noted Extrem General: Yes no clubbing, cyanosis or edema Assessment & Plan Assessment & Plan (1) Lung nodules: Comment: (1.1cm RLL nodule suv max 4.6; 0.7cm RUL nodule suv max 2.2 - on 05/16/22 PET) Code(s): R91.8 - Other nonspecific abnormal finding of lung field Category: Medical (2) Lymphoid hyperplasia: Code(s): R59.9 - Enlarged lymph nodes, unspecified Category: Medical (3) Lymphoproliferative disorder: Code(s): D47.9 - Neoplasm of uncertain behavior of lymphoid, hematopoietic and related tissue, unspecified Category: Medical (4) Sjogren's disease: Code(s): M35.00 - Sjogren syndrome, unspecified Category: Medical Qualifiers: Sjogren organ or system involvement: lung involvement Qualified Code(s): M35.02 - Sjogren syndrome with lung involvement Plan F/U with Dr Xiao CT chest 6 months F/U 6 months Orders: Orders CT chest wo IV con 11/24/23 R91.8 - Other nonspecific abnormal finding of lung field Coding Level of Care Code Est Pt Level 4 (40652) Diagnoses Lung nodules R91.8 Lymphoid hyperplasia R59.9 Lymphoproliferative disorder D47.9 Sjogren's syndrome with lung involvement M35.02 Sjogren organ or system involvement: lung involvement Time Spent (min) 17
== END 2023-07-18 15:58 | disposition home or self-care (01) ==
PROVIDERS: PCP Internal Medicine; Visit Provider Hospitalist
DX: R91.8 Other nonspecific abnormal finding of lung field (principal); R59.9 Enlarged lymph nodes, unspecified; D47.9 Neoplasm of uncertain behavior of lymphoid, hematopoietic and related tissue, unspecified; M35.02 Sjogren syndrome with lung involvement
CPT/HCPCS: 99214

== ENCOUNTER → 2023-07-18 15:24 | Outpatient (BNVA) | payer OTHER, SELFPAY | PROVIDERS: PCP Internal Medicine; Visit Provider Hospitalist | DX: R91.8 Other nonspecific abnormal finding of lung field (principal); R74.01 Elevation of levels of liver transaminase levels; M35.00 Sjogren syndrome, unspecified ==

== ENCOUNTER → 2023-08-06 08:54 | Outpatient (BNVA) | payer OTHER, SELFPAY | PROVIDERS: PCP Internal Medicine; Visit Provider Surgery ==

== ENCOUNTER 2023-09-09 12:48 | Outpatient (AMB) | payer OTHER, SELFPAY ==
--- NOTE | 2023-09-09 12:49 | A.OFFVIS_ITS ---
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 She heard about our program from her PCP. Her goal is to lose weight and achieve a healthy lifestyle. She reports first being concerned about her weight lifelong, highest weight to date was 255.6. Current weight is 255.6 pounds with a BMI of 45.3. She has tried multiple methods of weight loss including fad diets without permanent results. She lives with her 2 kids. 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 She wakes at:?7 am, and goes to bed at?10 pm. Dinner is at 7 pm. Breakfast: breakfast sandwich AM snack: skip Lunch: fast food, take out, salad PM snack: popcorn, Dinner: fish, beef, veggies After dinner: ice cream Other snacks: cookies, bread Liquids: 64-96 oz water, rare soda, no juice Alcohol/marijuana/tobacco intake: no etoh, edible cannabis daily, no tobacco Exercise: none, [facility] membership GERD score: 5 JAMES score: 3 ESS score: 14 QOL score: 111 [facility] Medical History (Updated 09/09/23 @ 13:57 by GUILLAUME Jay) Morbid obesity Sjogren's disease Transaminitis Lymphoproliferative disorder History of cervical cancer (~2015) Lymphoid hyperplasia Lymphadenopathy, mediastinal History of tobacco use Arthritis Surgical History History of laparoscopic cholecystectomy (03/04/23) History of esophagogastroduodenoscopy (EGD) Hx of colonoscopy History of lung surgery History of lung biopsy History of lung surgery History of cervical biopsy History of appendectomy (~1998) History of right oophorectomy (~1998) History of hysterectomy for cancer Family History Father Lung cancer Colon cancer Mother Breast CA Social History Household Members: Children Household Members Other:: , 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), 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 Housing: Condominium Do you presently have visiting nurse or other home services: No Alcohol intake: never Patient Tobacco Use Status: Former Tobacco user e-Cigarette/Vaping Use: Never Used Substance Use Type: Marijuana service: No Current occupational status: employed Cognitive needs: No Hearing needs: No Vision needs: Yes Physical Exam Vital Signs: Last Vital Signs Temp 96.5 F L 09/09/23 12:55 Pulse 76 09/09/23 12:55 BP 167/87 H 09/09/23 12:55 Pulse Ox 96 09/09/23 12:55 Oxygen Delivery Method Room Air 09/09/23 12:55 BMI result Body Mass Index 45.3 Assessment & Plan Assessment & Plan (1) Morbid obesity: Code(s): E66.01 - Morbid (severe) obesity due to excess calories Category: Medical Plan: This is a?47 yo female who will start our SWL program to prepare for bariatric surgery.? Blood work, CXR, ECG, Abd US and UGI have been ordered. She is being scheduled for initial consultations. She will start SWL classes and watch the first three videos before her next appointment. 1. You have been given a paper with a link to our software erick (The [employer]) to generate an individualized nutritional and exercise plan specific for you. Please send me a screenshot of the plans you will generate Meal to include lean meat (beef, fish, pork, turkey, chicken), or guamanian yogurt, or egg whites, or beans with a salad with olive oil and fruits (berries, pears, apples, kiwi). Avoid salt, breads, potatoes, rice, pasta, desserts. 2. If you choose shakes, each shake would be drunk slowly, like coffee over a period of 2 hours. 3. If you choose bars, cut each bar in 4 pieces and eat each piece in 30min to make each bar last 2 hours. 4. I emphasized the importance of measuring accurately the food portion and measure it when serving the food on a plate 5. The meal portions include a specific number of forks of meat (protein) and salad. You always eat the meat portion but you can replace up to half of salad/vegetables portion with rice, potatoes or pasta, or a fruit ?if you like. The less you do it the better weight loss will be. 6. One full-size fork is what it can be scooped on the fork without falling aside and not what can be bit with the fork. Use regular forks like those you find in a typical restaurant. 7.? Please send me weight measurements from your body composition scale as soon as possible and then once a week. Always include your diet and exercise plan. The best time to weigh yourself is first thing in the morning after going to the bathroom. 8. The best choice for exercise would be treadmill, stationary bike, elliptical 9.?Goal is to lose at least 1.5-2lbs per week, and about 10% before surgery, which is about 25 pounds 10. Please follow the diet plan exactly without any change. If you don't like something about the plan or you feel hungry you need to communicate with me so I can help you revise the plan. My cell phone number to communicate with me by text is [phone]. I will also place an order for a home sleep study to determine if you have underlying sleep apnea. Patient is morbidly obese and is not considered stable at this time.?I spent a total of 70 minutes reviewing/updating records, examining the patient and counseling the patient on weight management as detailed above. (2) Daytime sleepiness: Code(s): R40.0 - Somnolence Category: Medical Plan: ESS 14, check home sleep study Orders: Orders H Pylori Breath Test Today E03.9 - Hypothyroidism, unspecified, E66.01 - Morbid (severe) obesity due to excess calories, K76.0 - Fatty (change of) liver, not elsewhere classified, R40.0 - Somnolence, R79.89 - Other specified abnormal findings of blood chemistry Complete Blood Count Auto Diff Today E03.9 - Hypothyroidism, unspecified, E66.01 - Morbid (severe) obesity due to excess calories, K76.0 - Fatty (change of) liver, not elsewhere classified, R40.0 - Somnolence, R79.89 - Other specified abnormal findings of blood chemistry Lipid Panel Today E03.9 - Hypothyroidism, unspecified, E66.01 - Morbid (severe) obesity due to excess calories, K76.0 - Fatty (change of) liver, not elsewhere classified, R40.0 - Somnolence, R79.89 - Other specified abnormal findings of blood chemistry Comprehensive Met. Panel Today E03.9 - Hypothyroidism, unspecified, E66.01 - Morbid (severe) obesity due to excess calories, K76.0 - Fatty (change of) liver, not elsewhere classified, R40.0 - Somnolence, R79.89 - Other specified abnormal findings of blood chemistry Vitamin B1 Today E03.9 - Hypothyroidism, unspecified, E66.01 - Morbid (severe) obesity due to excess calories, K76.0 - Fatty (change of) liver, not elsewhere classified, R40.0 - Somnolence, R79.89 - Other specified abnormal findings of blood chemistry Ferritin Today E03.9 - Hypothyroidism, unspecified, E66.01 - Morbid (severe) obesity due to excess calories, K76.0 - Fatty (change of) liver, not elsewhere classified, R40.0 - Somnolence, R79.89 - Other specified abnormal findings of blood chemistry FL upper GI w air Today E03.9 - Hypothyroidism, unspecified, E66.01 - Morbid (severe) obesity due to excess calories, K76.0 - Fatty (change of) liver, not elsewhere classified, R40.0 - Somnolence, R79.89 - Other specified abnormal findings of blood chemistry Insulin Today E03.9 - Hypothyroidism, unspecified, E66.01 - Morbid (severe) obesity due to excess calories, K76.0 - Fatty (change of) liver, not elsewhere classified, R40.0 - Somnolence, R79.89 - Other specified abnormal findings of blood chemistry Hemoglobin A1c Today E03.9 - Hypothyroidism, unspecified, E66.01 - Morbid (severe) obesity due to excess calories, K76.0 - Fatty (change of) liver, not elsewhere classified, R40.0 - Somnolence, R79.89 - Other specified abnormal findings of blood chemistry IRON PROFILE Today E03.9 - Hypothyroidism, unspecified, E66.01 - Morbid (severe) obesity due to excess calories, K76.0 - Fatty (change of) liver, not elsewhere classified, R40.0 - Somnolence, R79.89 - Other specified abnormal findings of blood chemistry Vitamin B12 and Folate Today E03.9 - Hypothyroidism, unspecified, E66.01 - Morbid (severe) obesity due to excess calories, K76.0 - Fatty (change of) liver, not elsewhere classified, R40.0 - Somnolence, R79.89 - Other specified abnormal findings of blood chemistry Zinc Today E03.9 - Hypothyroidism, unspecified, E66.01 - Morbid (severe) obesity due to excess calories, K76.0 - Fatty (change of) liver, not elsewhere classified, R40.0 - Somnolence, R79.89 - Other specified abnormal findings of blood chemistry C Reactive Protein Today E03.9 - Hypothyroidism, unspecified, E66.01 - Morbid (severe) obesity due to excess calories, K76.0 - Fatty (change of) liver, not elsewhere classified, R40.0 - Somnolence, R79.89 - Other specified abnormal findings of blood chemistry Vitamin A Today E03.9 - Hypothyroidism, unspecified, E66.01 - Morbid (severe) obesity due to excess calories, K76.0 - Fatty (change of) liver, not elsewhere classified, R40.0 - Somnolence, R79.89 - Other specified abnormal findings of blood chemistry TSH reflex Free T4 Today E03.9 - Hypothyroidism, unspecified, E66.01 - Morbid (severe) obesity due to excess calories, K76.0 - Fatty (change of) liver, not elsewhere classified, R40.0 - Somnolence, R79.89 - Other specified abnormal findings of blood chemistry Vitamin D 25-OH Total Today E03.9 - Hypothyroidism, unspecified, E66.01 - Morbid (severe) obesity due to excess calories, K76.0 - Fatty (change of) liver, not elsewhere classified, R40.0 - Somnolence, R79.89 - Other specified abnormal findings of blood chemistry US abdomen comp w elastography Today E03.9 - Hypothyroidism, unspecified, E66.01 - Morbid (severe) obesity due to excess calories, K76.0 - Fatty (change of) liver, not elsewhere classified, R40.0 - Somnolence, R79.89 - Other specified abnormal findings of blood chemistry XR chest 2V Today E03.9 - Hypothyroidism, unspecified, E66.01 - Morbid (severe) obesity due to excess calories, K76.0 - Fatty (change of) liver, not elsewhere classified, R40.0 - Somnolence, R79.89 - Other specified abnormal findings of blood chemistry ECG 12 lead EKG Today E03.9 - Hypothyroidism, unspecified, E66.01 - Morbid (severe) obesity due to excess calories, K76.0 - Fatty (change of) liver, not elsewhere classified, R40.0 - Somnolence, R79.89 - Other specified abnormal findings of blood chemistry RT home sleep study Today E03.9 - Hypothyroidism, unspecified, E66.01 - Morbid (severe) obesity due to excess calories, K76.0 - Fatty (change of) liver, not elsewhere classified, R40.0 - Somnolence, R79.89 - Other specified abnormal findings of blood chemistry Referrals Behavioral Health Referral E03.9 - Hypothyroidism, unspecified, E66.01 - Morbid (severe) obesity due to excess calories, K76.0 - Fatty (change of) liver, not elsewhere classified, R40.0 - Somnolence, R79.89 - Other specified abnormal findings of blood chemistry Nutrition/Dietitian Referral E03.9 - Hypothyroidism, unspecified, E66.01 - Morbid (severe) obesity due to excess calories, K76.0 - Fatty (change of) liver, not elsewhere classified, R40.0 - Somnolence, R79.89 - Other specified abnormal findings of blood chemistry
[2023-09-09 12:55] VITALS: BP 167/87; PULSE 76; TEMP 35.8; O2SAT 96; BMI 45.3
== END 2023-09-09 14:00 | disposition home or self-care (01) ==
PROVIDERS: PCP Internal Medicine; Visit Provider Physician Assistant Surgical
DX: E66.01 Morbid (severe) obesity due to excess calories (principal); R40.0 Somnolence; Z68.42 Body mass index [BMI] 45.0-49.9, adult
CPT/HCPCS: 99205

== ENCOUNTER → 2023-09-09 12:48 | Outpatient (BNVA) | payer OTHER, SELFPAY | PROVIDERS: PCP Internal Medicine; Visit Provider Physician Assistant Surgical ==

== ENCOUNTER 2023-09-18 08:27 | Outpatient (REF) | payer OTHER, SELFPAY ==
--- NOTE | ~2023-09-18 | XR_ITS ---
EXAMINATION: XR CHEST CLINICAL INFORMATION: Morbid severe obesity due to excess calories, patient states she is preop for weight management program. COMPARISON: None available. TECHNIQUE: 2 views of the chest were obtained. FINDINGS: Lung volumes are low. There is no gross pneumothorax. Heart size is normal. No pleural effusion. Surgical sutures at the medial right lung apex. Pulmonary nodules, with possible example at right lower lung measuring 7 mm, were better characterized on CT scan of 11/11/2022 and should be monitored with CT scan of the chest. XR/XR chest 2V IMPRESSION: Pulmonary nodules, with possible example at right lower lung measuring 7 mm, were better characterized on CT scan of 11/11/2022 and should be monitored with CT scan of the chest.
[2023-09-18 08:45] LABS: MANUAL DIFF FLAG NO
[2023-09-18 08:55] LABS: Basophils Percent Auto 0.5 % (0-2); Eosinophils Absolute Auto 0.3 X10*3/uL (0.0-0.4); Eosinophils Percent Auto 4.7 % (0-4); Hematocrit 39.5 % (37.0-47.0); Imm Gran Abs Auto 0.02 X10*3/uL (0.00-0.03); Imm Gran Pct Auto 0.4 % (0.0-0.4); Lymphocytes Absolute Auto 1.3 X10*3/uL (1.2-4.9); Lymphocytes Percent Auto 24.2 % (20-40); Mean Corpuscular HGB Conc 32.9 g/dl (31.0-35.0); Mean Corpuscular Volume 84.9 fL (80.0-98.0); Mean Platelet Volume 9.8 fL (9.4-12.3); Monocytes Absolute Auto 0.5 X10*3/uL (0.1-1.2); Monocytes Percent Auto 8.1 % (2-11); Neutrophils Absolute Auto 3.4 x10*3/uL (2.0-8.3); Neutrophils Percent Auto 62.1 % (45-73); Platelet Count 324 X10*3/uL (160-400); Red Blood Count 4.65 X10*6/uL (4.20-5.50); Red Cell Distribution Width 14.6 % (11.0-16.0); White Blood Count 5.5 X10*3/uL (4.8-10.8)
[2023-09-18 09:07] LABS: Estimated Average Glucose 105 mg/dL; Hemoglobin A1c % 5.3 % (<6.0)
[2023-09-18 09:32] LABS: Alanine Aminotransferase 576 U/L (0-31); Albumin Level 4.6 g/dL (3.5-5.0); Alkaline Phosphatase 120 U/L (39-117); Anion Gap 13 (12-20); Aspartate Amino Transferase 286 U/L (5-31); Bilirubin Total 0.5 mg/dL (0.0-1.0); Blood Urea Nitrogen 20 mg/dL (9-16); C Reactive Protein 1.81 mg/dL (< or = 0.50); Calcium 9.8 mg/dL (8.4-10.2); Carbon Dioxide 26 mmol/L (22-29); Chloride 106 mmol/L (96-108); Cholesterol 228 mg/dL (<200); Estimated Glomerular Filt Rate > 60; Glucose Random 102 mg/dL (60-115); HDL Cholesterol 85 mg/dL (>40); Iron 60 mcg/dL (30-160); LDL Cholesterol Calculated 130 mg/dL (<100); Percent Iron Saturation 15 % (15-50); Potassium 4.1 mmol/L (3.3-5.1); Sodium 141 mmol/L (135-145); Total Iron Binding Capacity 396 mcg/dL (228-428); Total Protein 8.5 g/dL (6.5-8.0); Triglycerides 65 mg/dL (<150); Unsaturated Iron Binding 336 ug/dL
[2023-09-18 09:45] LABS: HBS Num1 3.04 mIU/mL (0-7.99); HBc Num1 0.15 S/CO (0.00-0.79); HBsAGNum1 0.25 S/CO (0.00-0.99); Hepatitis B Core Antibody Nonreactive (Nonreactive); Hepatitis B Surface Antigen Negative (Negative); ~HepC Num1 0.19 S/CO (0.00-0.79); ~Hepatitis A Antibody IgM Nonreactive (Nonreactive); ~Hepatitis B Surface Antibody NONREACTIVE (Nonreactive); ~Hepatitis C Antibody Nonreactive (Nonreactive)
[2023-09-18 09:50] LABS: Folate 10.9 ng/mL (> or = 4.0); Vitamin B12 614 pg/mL (200-900)
[2023-09-18 09:51] LABS: Ferritin 487 ng/mL (10-250); Insulin 12 uU/mL (2-29); TSH reflex Free T4 1.61 uIU/mL (0.32-4.0); Vitamin D 25-OH Total 16.6 ng/mL (>30)
[2023-09-19 15:58] LABS: Alpha 1 Anti-trypsin 94 mg/dL (83-199); Ceruloplasmin 31 mg/dL (14-48)
[2023-09-19 20:29] LABS: Transglutaminase IgA <1.0 U/mL
[2023-09-23 02:13] LABS: Zinc 82 mcg/dL (60-130)
[2023-09-23 11:27] LABS: Mitochondrial Antibodies NEGATIVE (NEGATIVE)
[2023-09-24 05:14] LABS: Vitamin B1 10 nmol/L (8-30)
[2023-09-24 20:29] LABS: Vitamin A 49 mcg/dL (38-98)
[2023-09-29 04:14] LABS: Smooth Muscle Antibody <20 U (<20)
[2023-09-30 12:48] LABS: Endomysial IgA Antibody Negative (Negative)
== END 2023-09-18 08:28 | disposition home or self-care (01) ==
LOC: HO.XRAY 08:27
PROVIDERS: Physician Assistant; PCP Internal Medicine; Visit Provider Physician Assistant Surgical
DX: E66.01 Morbid (severe) obesity due to excess calories (principal); R40.0 Somnolence; K76.0 Fatty (change of) liver, not elsewhere classified; E03.9 Hypothyroidism, unspecified; R79.89 Other specified abnormal findings of blood chemistry; R74.01 Elevation of levels of liver transaminase levels; R74.8 Abnormal levels of other serum enzymes; R19.7 Diarrhea, unspecified; R19.8 Other specified symptoms and signs involving the digestive system and abdomen
CPT/HCPCS: 36415; 71046; 80053; 80061; 82103; 82306; 82390; 82607; 82728; 82746; 83036; 83525; 83540; 84425; 84443; 84590; 84630; 85025; 86015; 86140; 86231; 86364; 86381; 86704; 86706; 86709; 86803; 87340

== ENCOUNTER 2023-09-18 09:57 | Day surgery (SDC) | payer OTHER, SELFPAY ==
[2023-09-16 14:10] VITALS: BMI 41.6
--- NOTE | 2023-09-17 10:06 | P.CONAN_ITS ---
Documented by User: Kristal Moyer NP 09/17/23 10:08 HPI - Anesthesia Eval Consult details Narrative: 47yo F for Upper Endoscopy s/p lap jean-pierre 02/2023 with GA-ETT 7 PMFSH Active Problems Active Problems: All Active Problems Daytime sleepiness (Acute) Conjunctivitis (Acute) Abnormal findings on esophagogastroduodenoscopy (EGD) (Acute) Diarrhea (Acute) S/P laparoscopic cholecystectomy (Acute) Morbid obesity (Acute) Acute cholecystitis (Acute) Fatty liver (Acute) Sjogren's disease (Acute) Transaminitis (Acute) Annual physical exam (Acute) Ankle pain, left (Acute) MALToma (Acute) Lymphoproliferative disorder (Acute) Obesity (Acute) History of cervical cancer (Acute ~2016) Lymphoid hyperplasia (Acute) Lymphadenopathy, mediastinal (Acute) Lung nodules (Acute) History of tobacco use (Acute) Psoriatic arthritis (Acute) Hypothyroid (Acute) GERD (gastroesophageal reflux disease) (Acute) FHx: colon cancer (Acute) Anxiety (Acute) Left nephrolithiasis (Acute) Asymptomatic gallstones (Acute) Elevated LFTs (Acute) Past Medical History Medical History Morbid obesity Sjogren's disease Transaminitis Lymphoproliferative disorder History of cervical cancer (~2015) Lymphoid hyperplasia Lymphadenopathy, mediastinal History of tobacco use Arthritis Family History Family History Father Lung cancer Colon cancer Mother Breast CA Family history of problems with anesthesia: No Surgical History Surgical History History of laparoscopic cholecystectomy (03/04/23) History of esophagogastroduodenoscopy (EGD) Hx of colonoscopy History of lung surgery History of lung biopsy History of lung surgery History of cervical biopsy History of appendectomy (~1998) History of right oophorectomy (~1998) History of hysterectomy for cancer History of Problems with Anesthesia: No Social History Social History Household Members: Children Household Members Other:: , 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), 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 Do you presently have visiting nurse or other home services: No Alcohol intake: never Patient Tobacco Use Status: Former Tobacco user e-Cigarette/Vaping Use: Never Used Use of substances other than those prescribed or required for medical reasons: Yes Substance Use Type: Marijuana Are you DNR?: No Advance Directives: No Advance Directives Information Provided: Yes service: No Current occupational status: employed Cognitive needs: No Hearing needs: No Vision needs: Yes Meds Allergies Allergy/AdvReac Type Severity Reaction Status Date / Time No Known Allergies Allergy Verified 09/09/23 12:58 Home Medications ?Medication ?Instructions ?Recorded ?Confirmed ?Last Taken ?Type secukinumab 150 mg/mL subcutaneous 150 mg subcut Q4W 05/01/22 06/27/23 Unknown History syringe (Cosentyx) albuterol sulfate 90 mcg/actuation 2 puff inhalation QID PRN wheezing 05/15/23 06/27/23 Unknown History aerosol inhaler Exam Height,Weight and Vital Signs: Height 5 ft 3 in Weight 106.594 kg Assessment and Plan Assessment Anesthesia Assessment: Chart Reviewed Final Anesthetic Review Family History of Problems with Anesthesia: No History of Problems with Anesthesia: No Documented by User: Fifi Carnes MD 09/18/23 12:26 PMFSH Past Medical History Medical History Morbid obesity Sjogren's disease Transaminitis Lymphoproliferative disorder History of cervical cancer (~2015) Lymphoid hyperplasia Lymphadenopathy, mediastinal History of tobacco use Arthritis Family History Family History Father Lung cancer Colon cancer Mother Breast CA Surgical History Surgical History History of laparoscopic cholecystectomy (03/04/23) History of esophagogastroduodenoscopy (EGD) Hx of colonoscopy History of lung surgery History of lung biopsy History of lung surgery History of cervical biopsy History of appendectomy (~1998) History of right oophorectomy (~1998) History of hysterectomy for cancer Social History Social History Household Members: Children Household Members Other:: , 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), 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 Do you presently have visiting nurse or other home services: No Alcohol intake: never Patient Tobacco Use Status: Former Tobacco user e-Cigarette/Vaping Use: Never Used Use of substances other than those prescribed or required for medical reasons: Yes Substance Use Type: Marijuana Are you DNR?: No Advance Directives: No Advance Directives Information Provided: Yes service: No Current occupational status: employed Cognitive needs: No Hearing needs: No Vision needs: Yes Meds Allergies Allergy/AdvReac Type Severity Reaction Status Date / Time No Known Allergies Allergy Verified 09/09/23 12:58 Home Medications ?Medication ?Instructions ?Recorded ?Confirmed ?Last Taken ?Type secukinumab 150 mg/mL subcutaneous 150 mg subcut Q4W 05/01/22 06/27/23 Unknown History syringe (Cosentyx) albuterol sulfate 90 mcg/actuation 2 puff inhalation QID PRN wheezing 05/15/23 06/27/23 Unknown History aerosol inhaler Exam Airway Mallampati Class: III TM Dist: >3cm Neck ROM: Full Loose/Missing/Broken Teeth: No Heart: RRR Lungs: CTA Assessment and Plan Final Anesthetic Review NPO: Yes ASA Class: III Final Preanesthetic Review: Meds/Allgs Chart Reviewed, Consent Obtained/Reviewed and Anes Risks/Benef Reviewed Patient Risk: Intermediate Procedure Risk: Intermediate Anesthetic Plan Anesthetic Plan: MAC: Disposition: Standard PACU
[2023-09-18 10:17] VITALS: BMI 44.1
[2023-09-18 10:28] VITALS: BP 91/53; PULSE 90; RESP 16; TEMP 36.8; O2SAT 97
[2023-09-18] MEDS: Lactated Ringers 1,000 ML 100 ML IVCONT (10:44)
--- NOTE | 2023-09-18 11:00 | MHC.SHP ---
Pre-Procedural Eval Section A - 24 Hr Update-Section A only Date of Service: 09/18/23 Section B - Complete if H&P > 30 days Chief Complaint: abn gastric pathology Relevant Family History (Specify if Yes): No Relevant Social History: None Present Medications: see Short Stay Collaborative assessment Medical History: Significant History (Morbid obesity Sjogren's disease Transaminitis Lymphoproliferative disorder History of cervical cancer (~2015) Lymphoid hyperplasia Lymphadenopathy, mediastinal History of tobacco use Arthritis) History of Previous Operations: Relevant previous surgery/procedure and date(s) (History of laparoscopic cholecystectomy (03/04/23) History of esophagogastroduodenoscopy (EGD) Hx of colonoscopy History of lung surgery History of lung biopsy History of lung surgery History of cervical biopsy History of appendectomy (~1998) History of right oophorectomy (~1998) History of hysterec) Allergies: Allergies Allergy/AdvReac Type Severity Reaction Status Date / Time No Known Allergies Allergy Verified 09/09/23 12:58 Review of Systems Sugical H&P ROS: Negative: Constitution, Cardiovascular, Respiratory, Neurological, Psychiatric, Hem-Onc, Allergic/Immunologic, Gastrointestinal, Genitourinary, Musculoskeletal, Integumentary, Endocrine and Eyes/Ears/Nose/Throat Exam Surgical H&P Exam: Normal: HEENT, Normal: Heart, Normal: Lungs, Normal: Extremities, Normal: Abdomen, Normal: Skin and Normal: Neurological Plan Diagnosis/Plan: Unchanged I have reviewed the history and physical and performed a pertinent physical examination on my patient. No changes have occurred unless specified. Time Spent With Patient Time: Total time managing care of this patient today ____ minutes.
--- NOTE | 2023-09-18 12:40 | W.PM.OPN ---
Operative Note Operative Note Date of Service: 09/18/23 Narrative: Procedure Description: EGD Indication: abn gastric path Anesthesia: MAC FLEXIBLE TRANSORAL UPPER GASTROINTESTINAL ENDOSCOPY UPPER ENDOSCOPY Consent: Indications for the procedure and potential complications of bleeding, perforation, reaction to medications and missed diagnosis were discussed with the patient and informed consent was obtained. Instrument: Olympus GIF H 190 J mid size upper endoscope Monitoring: Vital signs and clinical assessment, continuous EKG monitoring, Pulse oximetry, Carbon Dioxide monitoring and blood pressure monitoring were done throughout the procedure. Procedure: The patient was placed in the left lateral decubitis position and pre-procedure medications were administered and a bite block was placed. The endoscope was inserted into the mouth and advanced under direct vision to the third part of duodenum. A careful inspection was made as the upper endoscope was withdrawn including a retroflexed examination of the proximal stomach; Findings and interventions are described below. Findings: Larynx:normal Esophagus: GE junction at 36 cm, diaphragm hiatus at 36 cm, normal mucosa Stomach: patchy erosions and streaky linear erythema in antrum with granular mucosa . Biopsies were obtained, also sent for flow cytometry. Grade 2 flap valve on retroflexed examination of the cardia. Duodenum: Normal bulb and descending duodenum, bx taken Intervention: Biopsies as noted above, Impression/Findings: gastritis PLAN: f/u path
[2023-09-18 12:48] VITALS: BP 129/82; PULSE 102; RESP 16; TEMP 36.8; O2SAT 98
[2023-09-18 13:03] VITALS: BP 139/90; PULSE 92; RESP 20; TEMP 36.3; O2SAT 96
== END 2023-09-18 13:22 | disposition home or self-care (01) ==
PROVIDERS: Pathology Anatomic Pathology & Clinical Pathology; PCP Internal Medicine; Visit Provider Internal Medicine Gastroenterology
PROC: 0DJ08ZZ Inspection of Upper Intestinal Tract, Via Natural or Artificial Opening Endoscopic (ICD-10-PCS; CPT 43235; principal; 2023-09-18 12:20)
DX: K29.60 Other gastritis without bleeding (principal); Z80.0 Family history of malignant neoplasm of digestive organs; R19.8 Other specified symptoms and signs involving the digestive system and abdomen; K21.9 Gastro-esophageal reflux disease without esophagitis; K44.9 Diaphragmatic hernia without obstruction or gangrene; D47.9 Neoplasm of uncertain behavior of lymphoid, hematopoietic and related tissue, unspecified; M35.00 Sjogren syndrome, unspecified; R74.01 Elevation of levels of liver transaminase levels; R59.0 Localized enlarged lymph nodes; E66.01 Morbid (severe) obesity due to excess calories; Z68.41 Body mass index [BMI] 40.0-44.9, adult; Z85.41 Personal history of malignant neoplasm of cervix uteri; Z79.899 Other long term (current) drug therapy; Z87.891 Personal history of nicotine dependence; Z98.890 Other specified postprocedural states
CPT/HCPCS: 43239; 36415; 88184; 88185; 88300; 88305; 88313; 88342; J1596; J2704

== ENCOUNTER → 2023-09-18 09:57 | Outpatient (BNV) | payer OTHER, SELFPAY | PROVIDERS: PCP Internal Medicine; Visit Provider Internal Medicine Gastroenterology | DX: K29.70 Gastritis, unspecified, without bleeding (principal); K21.9 Gastro-esophageal reflux disease without esophagitis | CPT/HCPCS: 43239 ==

== ENCOUNTER 2023-10-01 12:16 | Outpatient (AMB) | payer OTHER, SELFPAY ==
--- NOTE | 2023-10-01 12:06 | A.OFFWM_ITS ---
Intake Intake Visit Reasons: (TV) BH Intake Allergies No Known Allergies Allergy (Verified 10/01/23 13:29) [facility] Medical History Morbid obesity Sjogren's disease Transaminitis Lymphoproliferative disorder History of cervical cancer (~2015) Lymphoid hyperplasia Lymphadenopathy, mediastinal History of tobacco use Arthritis Surgical History History of laparoscopic cholecystectomy (03/04/23) History of esophagogastroduodenoscopy (EGD) Hx of colonoscopy History of lung surgery History of lung biopsy History of lung surgery History of cervical biopsy History of appendectomy (~1998) History of right oophorectomy (~1998) History of hysterectomy for cancer Family History Father Lung cancer Colon cancer Mother Breast CA Social History Household Members: Children Household Members Other:: , 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), 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 PT reports she is looking for bariatric surgery with hopes to improve her life, be more active and feel healthy. PT denied any history of mental health treatment and or past hospitalization/crisis for behavioral health. Denies any safety concerns around SI and/or self-other harm, also there is no history of substance use reported and Pt denied any issues with stress/emotional-eating. Scores from BES suggest moderate risk for binge eating behavior, however when questioned in detail client does not meet criteria or have experienced binge eating episodes. On the other hand, PHQ-9 scores showed no active symptoms/concerns with depression and the patient's Mental status exam is withing normal limits, suggesting person's functioning is not impaired. At this time patient is cleared from the behavioral health standpoint but will be seen again in 1 month for support and will be provided with strategies to continue improving eating behavior. Presenting Concerns Referral Source GUILLAUME Foote. Reason for referral Completion of behavioral health assessment as part of process for weight-loss surgery. Precipitating Event The last year she was been noticing how her weight is impacting her daily life. She wants a long-term solution and be in a healthy position. Living Situation Current Living Situation Rent At risk of losing current housing? No Satisfied with current living situation? Yes Comments PT lives with her 2 children, and her cat. Food/Weight/Diet Expectations of change Initial goal is to lose at least 1.5-2lbs per week, and about 10% of weight before surgery, which is about 25 pounds. Started at 255Lbs, current weight is 247Lbs. Current meal plan: 2 shakes and 1 meal. PT reports she's doing well with current meal plan. She doesn't have a consistent exercise routine. History/Relationship with food PT reports she rather avoid food than not because it's hard for her to stop eating once she has all the food in front of her. Denies using food as a reward or emotional-eating challenges. She doesn't like the feeling of being full but her challenges are due to not eating as healthy or the food choices. On the other hand, she tends to eat more when alone than with others. Example of Meals before starting the program Breakfast: @9am, breakfast sandwich (Frozen croissant, hylton, egg and cheese) with coffee (vanilla latte) Lunch @1pm: home-made Salads with a protein on it and dressing (Korean) PM snack: another coffee Dinner: skip or, will have something quick due to children's schedule like a grilled cheese sandwich granola bar, or chips. Then a meal at 8 pm Bedtime 9:30. History/Relationship with weight PT reports she has been overweight her whole life. Gained substantial weight with each . In the last 10 years, her highest was around 255 lbs and her lowest 170 lbs (right after divorce). History/Relationship with dieting 2016 was 170Lbs as she was working out a lot and eating no carbs at all, however after several months went back to her old routine and started gaining weight. Tried Noon, Weight Watchers, Atkins, and calorie count. She tends to use each method/program for about 4 months Binge Eating Do you frequently eat large amounts of food in short periods of time, not feeling physically hungry? No Do you feel out of control when you eat a large amount of food in a short period of time? Yes Do you eat large amounts of food rapidly and typically alone? Yes Night Eating Do you wake up at least once during the night to eat? No If you wake up in the night, do you find that it is necessary to eat something in order to fall back asleep? No Do you have little or no appetite in the morning and feel very hungry in the evening, often overeating between dinner and when you go to bed? No Social History Family history and relationship PT has been since 2015. PT has 1 sibling and 2 step-sisters. Parents are alive. Good family relationship Parental/Familial newspaper photographer obligations 14 y/o son and 12 y/o daughter. Developmental history and status None reported. Social support Friends and close family. Community support PT participate in different things on her town, she volunteers at the [employer] every Friday. Adventist/Spirituality None. Cultural/Ethnic information . Legal Involvement and History Current or historical involvement with the legal system? None Education Highest grade completed Bachelors degree and certificate. Preferred learning style Learn by doing Currently enrolled in educational program? No Interested in further educational program? 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 No Meaningful activities volunteering, read, watch soccer, paint with gems. Financial Situation Describe current financial situation Occasional struggle and Often struggles with finance Financial assistance? None Service Service? No Mental Health and Addiction Treatment Current/Past substance abuse? No Current/Past addictive behavior concerns? No Psychiatric history Never been in counseling before, denies ever been in crisis or hospitalized for MH. Denies any past/current concern with self/other-harm, and/or SI. Medical and Physical Health Summary Additional Medical History not covered in history None reported Sexual History concerns None reported. Physical exam in the last year? Yes Pain Screening Current pain? No Pain in the last few months? No Medications Is the patient compliant with medications? Yes Does the patient have Sierra Guardian in place? Not applicable Does the patient use complimentary health approaches? No Trauma/Abuse History History of trauma? No Questionnaires PHQ-9 Over the last 2 weeks, how often have you been bothered by any of the following problems? 1. Little interest or pleasure in doing things: not at all 2. Feeling down, depressed, or hopeless: not at all 3. Trouble falling or staying asleep, or sleeping too much: several days 4. Feeling tired or having little energy: not at all 5. Poor appetite or overeating: not at all 6. Feeling bad about yourself - or that you are a failure or have let yourself or your family down: not at all 7. Trouble concentrating on things, such as reading the newspaper or watching television: not at all 8. Moving or speaking so slowly that other people could have noticed. Or the opposite - being so fidgety or restless that you have been moving around a lot more than usual: not at all 9. Thoughts that you would be better off or of hurting yourself in some way: not at all Total score: 1 Depression Screening Interpretation: Negative (Scored 3 on 09/09/23) Depression Screening Done: Yes 35213 - PHQ-9 Billing: Yes Source: Developed by Drs. Nacho Stanford, Nicolle Badillo, Jose J Cruz and colleagues, with an educational carlos from [employer]. Binge Eating Scale Group 1 A. I don't feel self-conscious about my wt. or body size when I'm with others. B. I feel concerned about how I look to others, but it normally does not make me fell disappointed with myself C. I do get self-conscious about my appearance and wt. which makes me feel disappointed in myself. D. I feel very self-conscious about my wt. and frequently I feel intense shame and disgust for myself. I try to avoid social contacts because of my self- consciousness. Response Group 1: C Group 2 A. I don't have any difficulty eating slowly in the proper manner. B. Although I seem to gobble down foods, I don't end up feeling stuffed because of eating to much. C. At times, I tend to eat quickly and then, I feel uncomfortably full afterwards. D. I have the habit of bolting down my food, without really chewing it. When this happens I usually feel uncomfortably stuffed because I've eaten to much. Response Group 2: A Group 3 A. I feel capable to control my eating urges when I want to. B. I feel like I have failed to control my eating more than the average person. C. I feel utterly helpless when it comes to feeling in control of my eating urges. D. Because I feel so helpless about controlling my eating I have become very desperate about trying to get control. Response Group 3: B Group 4 A. I don't have the habit of eating when I'm bored. B. I sometimes eat when I'm bored, but often I'm able to get busy and get my mind off food. C. I have a regular habit of eating when I'm bored, but occasionally, I can use some other activity to get my mind off eating. D. I have a strong habit of eating when I'm bored. Nothing seems to help me breath the habit. Response Group 4: C Group 5 A. I'm usually physically hungry when I eat something. B. Occasionally, I eat something on impulse even though I really am not hungry. C. I have the regular habit of eating foods, that I might not really enjoy, to s atisfy a hungry feeling even though physically, I don't need the food. D. Although I'm not physically hungry, I get a hungry feeling in my mouth that only seems to be satisfied when I eat a food, like sandwich, that fills my mouth. Sometimes, when I eat the food to satisfy my mouth hunger, I then spit the food out so I won't gain weight. Response Group 5: B Group 6 A. I don't feel any guilt or self-hate after I overeat. B. After I overeat, occasionally I feel guilt or self-hate. C. Almost all the time I experience strong guilt or self-hate after I overeat. Response Group 6: C Group 7 A. I don't lose total control of my eating when dieting even after periods when I overeat. B. Sometimes when I eat a forbidden food on a diet, I feel like I blew it and eat even more. C. Frequently, I have the habit of saying to myself, I've blown it now, why not go all the way, when I overeat on a diet. When that happens I eat more. D. I have a regular habit of starting a strict diets for myself but I break the diets by going on an eating binge. My life seems to be either a feast or famine. Response Group 7: D Group 8 A. I rarely eat so much food that I feel uncomfortably stuffed afterwards. B. Usually about once a month, I each such a quantity of food, I end up feeling very stuffed. C. I have regular periods during the month when I eat large amounts of food, either at mealtime or at snacks. D. I eat so much food that I regularly feel quite uncomfortable after eating and sometimes a bit nauseous. Response Group 8: A Group 9 A. My level of calorie intake does not go up very high or go down very low on a regular basis. B. Sometimes after I overeat, I will try to reduce my caloric intake to almost nothing to compensate for the excess calories I've eaten. C. I have a regular habit of overeating during the night. It seems that my routine is not to be hungry in the morning but overeat in the evening. D. In my adult years, I have had week-long periods where I practically starve myself. This follows periods when I overeat. It seems I live a life of either feast or famine. Response Group 9: C Group 10 A. I usually am able to stop eating when I want to. I know when enough is enough. B. Every so often, I experience a compulsion to eat which I can't seem to control. C. Frequently, I experience strong urges to eat which I seem unable to control, but at other times I can control my eating urges. D. I feel incapable of controlling urges to eat. I have a fear of not being able to stop eating voluntarily. Response Group 10: B Group 11 A. I don't have any problem stopping eating when I feel full. B. I usually can stop eating when I feel full but occasionally overeat leaving me feeling uncomfortably stuffed. C. I have a problem stopping eating once I start and usually I feel uncomfortably stuffed after I eat a meal. D. Because I have a problem not being able to stop eating when I want, I sometimes have to induce vomiting to relieve my stuffed feeling. Response Group 11: A Group 12 A. I seem to eat just as much when I'm with others, Family social gatherings as when I'm by myself. B. Sometimes, when I'm with other persons, I don't eat as much as I want to eat because I'm self-conscious about my eating. C. Frequently, I eat only a small amount of food when others are present, because I'm very embarrassed about my eating. D. I feel so ashamed about overeating that I pick times to overeat when I know no one will see me. I feel like a closet eater. Response Group 12: B Group 13 A. I eat three meals a day with only an occasional between meal snack. B. I eat 3 meals a day, but I also normally snack between meals. C. When I am snacking heavily, I get in the habit of skipping regular meals. D. There are regular periods when I seem to be continually eating, with no planned meals. Response Group 13: C Group 14 A. I don't think much about trying to control unwanted eating urges. B. At least some of the time, I feel my thoughts are pre-occupied with trying to control my eating urges. C. I feel that frequently I spend much time thinking about how much I ate or about trying not to eat anymore. D. It seems to me that most of my waking hours are pre-occupied by thoughts about eating or not eating. I feel like I'm constantly struggling not to eat. Response Group 14: C Group 15 A. I don't think about food a great deal. B. I have strong craving for food but they last only for brief periods of time. C. I have days when I can't seem to think about anything else but food. D. Most of my days seem to be pre-occupied with thoughts about food. I feel like I live to eat. Response Group 15: C Group 16 A. I usually know whether or not I'm physically hungry. I take the right portion of food to satisfy me. B. Occasionally, I feel uncertain about knowing whether or not I'm physically hungry. A these times it's hard to know how much food I should take to satisfy me. C. Even though I might know how many calories I should eat, I don't have any idea what is a normal amount of food for me. Response Group 16: A Binge Eating Score: 21 Score less than 17 Minimal Risk Score between 18-26 Moderate Risk Score between 27-46 High Risk Assessment & Plan Assessment & Plan (1) Adjustment disorder: Code(s): F43.20 - Adjustment disorder, unspecified Qualifiers: Adjustment disorder type: unspecified type Qualified Code(s): F43.20 - Adjustment disorder, unspecified Plan Pt is cleared from standpoint. She will will be seen in 1 month for support and checking in. Next erick: 10/27/[address] [place] [address]. [facility] Platform: [facility] Location of provider rendering services: practice address Location of patient: other ([place], [place]) Patient Identification confirmed using: Name, : Yes Patient verbally consented to treatment: Yes Patient verbally consented to billing insurance company: Yes Patient informed of any privacy concerns related to visit: No Minutes spent on Phone/Video with Pt.: 60 (12:00pm-1:00pm) Coding Level of Care Code New Pt Tele Psy Diag Rigoberto ([id number]) Patient Type New Diagnoses Adjustment disorder, unspecified type F43.20 Adjustment disorder type: unspecified type Time Spent (min) 60
== END 2023-10-01 13:00 | disposition home or self-care (01) ==
LOC: HO.HBST 12:17
PROVIDERS: PCP Internal Medicine; Visit Provider Counselor Mental Health
DX: F43.20 Adjustment disorder, unspecified (principal)
CPT/HCPCS: 90791

== ENCOUNTER → 2023-10-01 12:16 | Outpatient (BNVA) | payer OTHER, SELFPAY | PROVIDERS: PCP Internal Medicine; Visit Provider Counselor Mental Health ==

== ENCOUNTER 2023-10-01 13:25 | Outpatient (AMB) | payer OTHER, SELFPAY ==
--- NOTE | 2023-10-01 13:28 | MHC.OFFVIS ---
Vital Signs 10/01/23 13:29 Height 5 ft 3 in Weight 249 lb BMI 44.1 BP 122/80 Intake Visit Reasons: New patient Annual Intake Note: pt c/o hotflashes User Interface Developer: User Interface Developer Present (Hodan) Allergies No Known Allergies Allergy (Verified 10/01/23 13:29) HPI Comments Details: She is a premenopausal woman presenting for new patient annual examination. Doing well with concerns: Hot flashes usually in the a.m. while she is getting ready for work, currently coping with them. She tries to eat healthy and stays active with exercise. Hysterectomy due to cervical cancer. Currently is not sexually active. She denies vaginal itching and irritation. Denies family history of breast, ovarian or colon cancer. Colonoscopy 06/2023. Mammogram: 2023. [facility] Medical History Morbid obesity Sjogren's disease Transaminitis Lymphoproliferative disorder History of cervical cancer (~2015) Lymphoid hyperplasia Lymphadenopathy, mediastinal History of tobacco use Arthritis Surgical History History of laparoscopic cholecystectomy (03/04/23) History of esophagogastroduodenoscopy (EGD) Hx of colonoscopy History of lung surgery History of lung biopsy History of lung surgery History of cervical biopsy History of appendectomy (~1998) History of right oophorectomy (~1998) History of hysterectomy for cancer Family History Father Lung cancer Colon cancer Mother Breast CA Social History Household Members: Children Household Members Other:: , 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), 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 Housing: 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 Do you presently have visiting nurse or other home services: No Alcohol intake: never Patient Tobacco Use Status: Former Tobacco user e-Cigarette/Vaping Use: Never Used Substance Use Type: Marijuana service: No Current occupational status: employed Cognitive needs: No Hearing needs: No Vision needs: Yes Female Reproductive History Menstrual Menopause type: surgical Total pregnancies: 2 Full term: 2 Number of Living Children: 2 Date of last pap smear: 06/25/23 (Birad 1) History of abnormal pap smear: Yes (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) Review of Systems Const All systems reviewed & are unremarkable except as noted in HPI and below Reports as per HPI Eyes Reports no additional complaints ENT Reports no additional complaints Card Reports no additional complaints Resp Reports no additional complaints GI Reports as per HPI and Reports no additional complaints Reports as per HPI Musc Reports no additional complaints Skin/Breast Reports as per HPI Neuro Reports no additional complaints Psych Reports no additional complaints Endo Reports no additional complaints Isiah/Lymph Reports no additional complaints Aller/Immun Reports no additional complaints Physical Exam Vital Signs: Last Vital Signs BP 122/80 10/01/23 13:29 BMI result Body Mass Index 44.1 Const General: cooperative, healthy appearing, no acute distress, well developed and alert Orientation/consciousness: patient oriented x3 HEENT Head: Yes normal to inspection Eyes General: appearance normal, both eyes and all related structures Neck Neck: Yes normal visual inspection Thyroid: Thyroid normal Chest Chest palpation & inspection: normal inspection of the chest and other (no puckering, dimpling, peau de orange, retraction, discharge, masses) Breast/axilla inspection: normal inspection of the breasts Breast/axilla palpation: normal palpation of the breasts Resp Effort & Inspection: normal respiratory effort GI Inspection: Yes normal to inspection Palpation (GI): Soft to palpation Rectal Exam - Female: deferred General: Yes bladder normal to palpation External Female Exam: normal external appearance and normal appearance of the urethra Speculum Exam - Vagina: normal appearance of the vagina, normal palpation and normal vaginal discharge Speculum Exam - Cervix: Cervix absent (Vaginal cuff no lesions or nodules) Bimanual exam- vagina & uterus: normal bimanual exam, normal palpation, bladder normal to palpation and uterus absent Bimanual Exam- Adnexa, other: no masses Skin General skin exam: no rashes or lesions noted Rashes: no rashes Neuro General: patient oriented x3 Cognition (Neuro): normal cognition Extrem General: Yes normal to inspection Psych Attitude: cooperative Thought process: Normal thought process present Assessment & Plan Assessment & Plan (1) Encounter for well woman exam with routine gynecological exam: Code(s): Z01.419 - Encounter for gynecological examination (general) (routine) without abnormal findings Category: Medical Plan Discussed: Current recommendations for pap smears per ASCCP guidelines. Breast awareness and periodic breast exams. Maintain a healthy lifestyle including a well balanced diet and routine exercise. Hot flashes, [id number] self-help measures, medication options-patient declines medication at this time. Follow up p.r.n. Mammogram yearly. Patient verbalizes understanding and agrees to the plan of care. She was given opportunity to ask questions and all questions were answered to the best of my ability. RTO in one year for annual distributor operator examination. This note is constructed using voice recognition software. While every effort has been made to ensure accuracy, field broomer errors may have been included. Orders: Orders PAP + HPV E6/E7 rfx 18/45 Today Z01.419 - Encounter for gynecological examination (general) (routine) without abnormal findings, Z85.41 - Personal history of malignant neoplasm of cervix uteri Coding Level of Care Code New Pt Prev Care 40-64y(68930) Diagnoses Encounter for well woman exam with routine gynecological exam Z01.419
[2023-10-01 13:29] VITALS: BP 122/80; BMI 44.1
== END 2023-10-01 14:09 | disposition home or self-care (01) ==
PROVIDERS: PCP Internal Medicine; Visit Provider Advanced Practice Midwife
DX: Z01.419 Encounter for gynecological examination (general) (routine) without abnormal findings (principal)
CPT/HCPCS: 99386

== ENCOUNTER 2023-10-01 15:42 | Outpatient (REF) | payer OTHER, SELFPAY ==
[2023-10-03 17:53] LABS: HPV mRNA E6/E7 Not Detected (Not Detected)
== END 2023-10-01 15:43 | disposition home or self-care (01) ==
LOC: HO.LNP 15:42
PROVIDERS: Visit Provider Advanced Practice Midwife
DX: Z01.419 Encounter for gynecological examination (general) (routine) without abnormal findings (principal); Z85.41 Personal history of malignant neoplasm of cervix uteri
CPT/HCPCS: 87624; 88175

== ENCOUNTER → 2023-10-07 12:45 | Outpatient (REF) | payer OTHER, SELFPAY ==
--- NOTE | 2023-10-07 12:50 | ECG_ITS ---
Test Reason : E66.01 Blood Pressure : / mmHG Vent. Rate : 070 BPM Atrial Rate : 070 BPM P-R Int : 158 ms QRS Dur : 096 ms QT Int : 392 ms P-R-T Axes : 037 055 023 degrees QTc Int : 423 ms Normal sinus rhythm Normal ECG When compared with ECG of 03-MAR-2023 20:23, No significant change was found Referred By: Emiliano Hernandez Electronically Signed By:KAEL EAGLE
== END ==
LOC: HO.CARD 12:45
PROVIDERS: Visit Provider Physician Assistant Surgical
DX: E66.01 Morbid (severe) obesity due to excess calories (principal); R40.0 Somnolence; K76.0 Fatty (change of) liver, not elsewhere classified; E03.9 Hypothyroidism, unspecified; R79.89 Other specified abnormal findings of blood chemistry
CPT/HCPCS: 93005

== ENCOUNTER 2023-10-08 13:55 | Outpatient (AMB) | payer OTHER, SELFPAY ==
[2023-10-08 12:54] VITALS: BMI 43.3
--- NOTE | 2023-10-08 12:54 | MHC.OFFVISWM ---
VS Expanded 10/08/23 12:54 Height 5 ft 3 in Weight 244 lb 4 oz BMI 43.3 Body Fat % 57.8 Body Fat Mass 141.2 Fat Free Mass 103.2 Visceral Fat Rating 24 Body Water % 28.9 Body Water Mass 70.6 Muscle Mass/Score 97 Basal Metabolic Rate/Score 1,367 Intake Visit Reasons: (TV) F/U SWL Plan Rep Required: No Allergies No Known Allergies Allergy (Verified 10/01/23 13:29) Medication List - Last Reconciled 10/08/23 by GUILLAUME Jay albuterol sulfate 90 mcg/actuation 2 puffs inhalation QID PRN cholecalciferol (vitamin D3) 125 mcg PO DAILY escitalopram oxalate 20 mg PO DAILY levothyroxine 25 mcg PO DAILY loperamide (Imodium A-D) 2 mg PO Q6H PRN omeprazole 20 mg PO DAILY PRN ondansetron HCl 4 mg PO Q8H PRN secukinumab (Cosentyx) 150 mg subcut Q4W HPI Comments Details: Patient is a pleasant 47-year-old female who returns to the office today in follow-up. She was initially seen as a new patient in the Surgical weight loss program on 09/09/2023. At that time, her weight was 255.6 lb with a BMI of 45.3. Weight today is 244.4 lb with a BMI of 43.3. She has lost 11.2 lb or 4.3% total body weight loss. She is following the right BMI erick. 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 She is continuing to be monitored by Pulmonology Dr Wilson, scheduled for chest CT in . [facility] Medical History Morbid obesity Sjogren's disease Transaminitis Lymphoproliferative disorder History of cervical cancer (~2016) Lymphoid hyperplasia Lymphadenopathy, mediastinal History of tobacco use Arthritis Surgical History History of laparoscopic cholecystectomy (03/04/23) History of esophagogastroduodenoscopy (EGD) Hx of colonoscopy History of lung surgery History of lung biopsy History of lung surgery History of cervical biopsy History of appendectomy (~1998) History of right oophorectomy (~1998) History of hysterectomy for cancer Family History Father Lung cancer Colon cancer Mother Breast CA Social History Household Members: Children Household Members Other:: , 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), 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 [facility] Do you presently have visiting nurse or other home services: No Alcohol intake: never Patient Tobacco Use Status: Former Tobacco user e-Cigarette/Vaping Use: Never Used Substance Use Type: Marijuana service: No Current occupational status: employed Cognitive needs: No Hearing needs: No Vision needs: Yes Telehealth Telehealth Telehealth Platform: Telephone Location of provider rendering services: practice address Location of patient: address on file Patient Identification confirmed using: Name, : Yes Telehealth method: voice only Patient verbally consented to treatment: Yes Patient verbally consented to billing insurance company: Yes Patient informed of any privacy concerns related to visit: Yes Minutes spent on Phone/Video with Pt.: 15 Assessment & Plan Assessment & Plan (1) Morbid obesity: Code(s): E66.01 - Morbid (severe) obesity due to excess calories Category: Medical Plan: Patient is doing well from a meal plans standpoint, utilizing the right BMI erick appropriately. We discussed the need for increasing her exercise. She states that she has a membership to the [employer] but was thinking about joining [employer] for morning work outs. Additionally, if she chooses to walk outside which she has been doing 2 days per week, I discussed that she track her calories using the [employer] erick. again discussed goal of burning 300 calories per day or 2000 calories per week. She has been encouraged to continue to send weight measurements weekly and we will follow up in the office in approximately 1 month.
== END 2023-10-08 14:13 | disposition home or self-care (01) ==
LOC: HO.HBS 13:55
PROVIDERS: PCP Internal Medicine; Visit Provider Physician Assistant Surgical
DX: E66.01 Morbid (severe) obesity due to excess calories (principal)
CPT/HCPCS: 99213

== ENCOUNTER → 2023-10-08 13:55 | Outpatient (BNVA) | payer OTHER, SELFPAY | PROVIDERS: PCP Internal Medicine; Visit Provider Physician Assistant Surgical ==

== ENCOUNTER 2023-10-15 12:58 | Outpatient (REF) | payer OTHER, SELFPAY ==
--- NOTE | ~2023-10-15 | US_ITS ---
EXAMINATION: US COMPLETE ABDOMEN WITH LIVER ELASTOGRAPHY CLINICAL INFORMATION: Morbid obesity. COMPARISON: None available. TECHNIQUE: Real-time imaging of the abdominal viscera. Noninvasive ultrasound liver fibrosis assessment is performed using [employer] ElastPQ point quantification shear wave elastography (pSWE) with a C5-2 MHz transducer. Multiple elastography samples are obtained. FINDINGS: PANCREAS: . The visualized pancreatic head and body are normal in appearance. The remainder of the pancreas is obscured from visualization by the overlying bowel gas. ABDOMINAL AORTA: The proximal, middle, and distal aortic segments are normal in caliber. INFERIOR VENA CAVA: Visualized portions are normal. LIVER: . The liver demonstrates normal size, contour and echogenicity. No focal lesion or intrahepatic biliary duct dilatation. The right lobe measures 17.1 cm in length. The left lobe measures 10.5 cm in length. Portal flow is towards the liver (hepatopetal). Shear wave liver elastography median stiffness is 1.58 m/s (reference: normal median stiffness is 1.3 m/s or less). IQR/median stiffness to assess sampling precision is 0.14 (reference: good quality data set is IQR/median stiffness of 0.15 or less). GALLBLADDER: Status post cholecystectomy. COMMON BILE DUCT: Normal in caliber measuring 0.5 cm in diameter. RIGHT KIDNEY: Echogenic pyramids are present, suggesting medullary sponge kidney. No hydronephrosis. No shadowing renal calculi or focal parenchymal lesions. The kidney measures 12.5 cm in maximum dimension. LEFT KIDNEY: Echogenic pyramids are present, suggesting medullary sponge kidney. No hydronephrosis. No shadowing renal calculi or focal parenchymal lesions. The kidney measures 11.6 cm in maximum dimension. SPLEEN: The spleen is enlarged measuring 13.4 cm in maximum dimension. FREE FLUID: None. US/US abdomen comp w elastography IMPRESSION: 1. Normal-appearing liver. 2. Liver elastography: In the absence of other known clinical signs, measurements rule out compensated advanced chronic liver disease. If there are known clinical signs, further testing may be needed for confirmation. 3. Incidental note made of echogenic pyramids, suggestive of medullary sponge kidney. REFERENCE: Society of Radiologists in Ultrasound Liver Stiffness Thresholds (2020): LIVER STIFFNESS THRESHOLDS: *Liver Stiffness equal or less than 1.3 m/s: High probability of being normal. *Liver Stiffness less than 1.7 m/s: In the absence of other known clinical signs, rules out compensated advanced chronic liver disease. *Liver Stiffness 1.7-2.1 m/s: Suggestive of compensated advanced chronic liver disease but need further test for confirmation. *Liver Stiffness over 2.1 m/s: Rules in compensated advanced chronic liver disease. *Liver Stiffness over 2.4 m/s: Suggestive of clinically significant portal hypertension. QUALITY OF DATA SET: *IQR/Median value equal or less than 0.15 implies a quality data set. *IQR/Median value over 0.15 implies a poor quality data set. SIGNIFICANT CHANGE FROM PRIOR EXAM: Significant change if liver stiffness measurement is 10% or greater from prior exam. OTHER CONSIDERATIONS: The stage of liver fibrosis may be overestimated in the setting of acute hepatitis, liver inflammation, elevated liver function tests, hepatic vascular congestion, obstructive cholestasis, non-fasting state, and infiltrative diseases such as amyloidosis and lymphoma. In some patients with NAFLD, the liver stiffness thresholds for compensated advanced chronic liver disease may be lower. In causes other than viral hepatitis and NAFLD, liver stiffness thresholds are not well established. Electronically signed by: Du Ceja MD 10/23/2023 09:54 PM EDT
== END 2023-10-15 12:59 | disposition home or self-care (01) ==
LOC: HO.US 12:58
PROVIDERS: PCP Internal Medicine; Visit Provider Physician Assistant Surgical
DX: E66.01 Morbid (severe) obesity due to excess calories (principal); R40.0 Somnolence; K76.0 Fatty (change of) liver, not elsewhere classified; E03.9 Hypothyroidism, unspecified; R79.89 Other specified abnormal findings of blood chemistry
CPT/HCPCS: 76700; 76981

== ENCOUNTER 2023-10-27 12:00 | Outpatient (AMB) | payer OTHER, SELFPAY ==
--- NOTE | 2023-10-27 12:30 | A.OFFWM_ITS ---
Intake Intake Visit Reasons: VIDEO BH F/U Allergies No Known Allergies Allergy (Verified 10/01/23 13:29) PFSH Medical History Morbid obesity Sjogren's disease Transaminitis Lymphoproliferative disorder History of cervical cancer (~2015) Lymphoid hyperplasia Lymphadenopathy, mediastinal History of tobacco use Arthritis Surgical History History of laparoscopic cholecystectomy (03/04/23) History of esophagogastroduodenoscopy (EGD) Hx of colonoscopy History of lung surgery History of lung biopsy History of lung surgery History of cervical biopsy History of appendectomy (~1998) History of right oophorectomy (~1998) History of hysterectomy for cancer Family History Father Lung cancer Colon cancer Mother Breast CA Social History Household Members: Children Household Members Other:: , 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), 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 She was seen on 09/30 for intake and was cleared. Today we processed progress with program expectations and provider requirements. Meal and exercise plan was reviewed. Processed challenges with hunger and thoughts around food on weekend nights. Worked on strategies to better organize her weekends, such as using erick Structured and/or behavioral activation sheet provided for a behavioral activation plan. Explored hobbies and ways she could maximize her engagement during the weekends, as well of some mindfulness and distraction excercises. Subjective: PT reports she is doing very well in general, however states that the weekend nights are a challenges, PT believes if because on weekends she has more free time, so it's easier to think about food, however she has not been overeating or snacking. Assessment and response: PT was open, engages and alert. Denied any safety/risk concerns and reports functioning is intact. PT received well the information and feedback provided and responded well to interventions. Presenting Concerns Referral Source GUILLAUME Foote. Reason for referral Completion of behavioral health assessment as part of process for weight-loss surgery. Precipitating Event The last year she was been noticing how her weight is impacting her daily life. She wants a long-term solution and be in a healthy position. Assessment & Plan Assessment & Plan (1) Adjustment disorder: Code(s): F43.20 - Adjustment disorder, unspecified Qualifiers: Adjustment disorder type: unspecified type Qualified Code(s): F43.20 - Adjustment disorder, unspecified Plan PT was advised to consult with provider options for nights on weekends (maybe a bar in small pieces) and encouraged to use techniques provided today. PT was also encouraged to reach the office to ask questions around insurance approval as she feels worries her insurance won't approve surgery. Next erick: None. however she has been advised to request a follow up if in need of support. Telehealth Telehealth Telehealth Platform: [facility] Location of provider rendering services: practice address Location of patient: [place] ([place]) Patient Identification confirmed using: Name, : Yes Telehealth method: voice only Patient verbally consented to treatment: Yes Patient verbally consented to billing insurance company: Yes Patient informed of any privacy concerns related to visit: No Minutes spent on Phone/Video with Pt.: 45 (12:00pm-1:00pm) Coding Level of Care Code Established Pt Tele Psytx 45 mins (21712) Patient Type Established Diagnoses Adjustment disorder, unspecified type F43.20 Adjustment disorder type: unspecified type Time Spent (min) 45
== END 2023-10-27 13:00 | disposition home or self-care (01) ==
LOC: HO.HBST 13:46
PROVIDERS: PCP Internal Medicine; Visit Provider Counselor Mental Health
DX: F43.20 Adjustment disorder, unspecified (principal)
CPT/HCPCS: 90834

== ENCOUNTER → 2023-10-27 12:00 | Outpatient (BNVA) | payer OTHER, SELFPAY | PROVIDERS: PCP Internal Medicine; Visit Provider Counselor Mental Health | DX: F43.20 Adjustment disorder, unspecified (principal) ==

== ENCOUNTER 2023-10-28 07:57 | Outpatient (REF) | payer OTHER, SELFPAY ==
[2023-10-28 09:20] LABS: Alanine Aminotransferase 160 U/L (0-31); Albumin Level 4.1 g/dL (3.5-5.0); Alkaline Phosphatase 111 U/L (39-117); Anion Gap 12 (12-20); Aspartate Amino Transferase 69 U/L (5-31); Bilirubin Total 0.3 mg/dL (0.0-1.0); Blood Urea Nitrogen 14 mg/dL (9-16); C Reactive Protein 1.95 mg/dL (< or = 0.50); Calcium 9.5 mg/dL (8.4-10.2); Carbon Dioxide 27 mmol/L (22-29); Chloride 106 mmol/L (96-108); Estimated Glomerular Filt Rate > 60; Glucose Random 108 mg/dL (60-115); Potassium 4.1 mmol/L (3.3-5.1); Sodium 141 mmol/L (135-145); Total Protein 7.8 g/dL (6.5-8.0)
[2023-10-29 08:53] LABS: Alpha 1 Anti-trypsin 84 mg/dL (83-199); Ceruloplasmin 32 mg/dL (14-48)
[2023-10-29 22:52] LABS: Myeloperoxidase Antibody <1.0 AI; Proteinase 3 PR3 Antibodies <1.0 AI
[2023-10-30 14:04] LABS: Anti Nuclear Antibody Screen NEGATIVE (NEGATIVE)
[2023-10-31 22:04] LABS: Angiotensin Converting Enzyme 50 U/L (9-67)
[2023-11-05 17:38] LABS: Soluble Liver Ag Autoantibody <20.1 U (0.0-20.0)
== END 2023-10-28 07:58 | disposition home or self-care (01) ==
LOC: HO.LAB 07:57
PROVIDERS: PCP Internal Medicine; Visit Provider Internal Medicine Gastroenterology
DX: R79.82 Elevated C-reactive protein (CRP) (principal); K75.81 Nonalcoholic steatohepatitis (NASH); D47.9 Neoplasm of uncertain behavior of lymphoid, hematopoietic and related tissue, unspecified
CPT/HCPCS: 36415; 80053; 82085; 82103; 82164; 82390; 83520; 86021; 86038; 86140; 86376

== ENCOUNTER 2023-11-14 09:58 | Outpatient (AMB) | payer OTHER, SELFPAY ==
--- NOTE | 2023-11-14 08:30 | A.OFFVIS_ITS ---
VS Expanded 11/14/23 08:31 Height 5 ft 3 in Weight 245 lb 6 oz BMI 43.5 Body Fat % 58.2 Body Fat Mass 142.9 Fat Free Mass 102.6 Visceral Fat Rating 24 Body Water % 28.7 Body Water Mass 70.4 Muscle Mass/Score 96.6 Basal Metabolic Rate/Score 1,374 Intake Visit Reasons: (TV) F/U SWL Insole Tape Stitcher [employer] Required: No Allergies No Known Allergies Allergy (Verified 10/01/23 13:29) Medication List - Last Reconciled 11/14/23 by GUILLAUME Jay albuterol sulfate 90 mcg/actuation 2 puffs inhalation QID PRN cholecalciferol (vitamin D3) 125 mcg PO DAILY escitalopram oxalate 20 mg PO DAILY levothyroxine 25 mcg PO DAILY loperamide (Imodium A-D) 2 mg PO Q6H PRN omeprazole 20 mg PO DAILY PRN ondansetron HCl 4 mg PO Q8H PRN secukinumab (Cosentyx) 150 mg subcut Q4W HPI Comments Details: Patient is a pleasant 48-year-old female who returns to the office today in follow-up. She was initially seen as a new patient in the Surgical weight loss program on 09/09/2023. At that time, her weight was 255.6 lb with a BMI of 45.3. Weight today is 245.6 lb with a BMI of 43.5. She has lost 10 lb or 3.9% total body weight loss. She is following the right BMI erick. She reports that she is eating atkins protein bars but at night is having too many. 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 She is continuing to be monitored by Pulmonology Dr Wilson, scheduled for chest CT in . [facility] Medical History Morbid obesity Sjogren's disease Transaminitis Lymphoproliferative disorder History of cervical cancer (~2015) Lymphoid hyperplasia Lymphadenopathy, mediastinal History of tobacco use Arthritis Surgical History History of laparoscopic cholecystectomy (03/04/23) History of esophagogastroduodenoscopy (EGD) Hx of colonoscopy History of lung surgery History of lung biopsy History of lung surgery History of cervical biopsy History of appendectomy (~1998) History of right oophorectomy (~1998) History of hysterectomy for cancer Family History Father Lung cancer Colon cancer Mother Breast CA Social History Household Members: Children Household Members Other:: , 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), 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 [facility] Do you presently have visiting nurse or other home services: No Alcohol intake: never Patient Tobacco Use Status: Former Tobacco user e-Cigarette/Vaping Use: Never Used Substance Use Type: Marijuana service: No Current occupational status: employed Cognitive needs: No Hearing needs: No Vision needs: Yes Telehealth Telehealth Telehealth Platform: Telephone Location of provider rendering services: practice address Location of patient: address on file Patient Identification confirmed using: Name, : Yes Telehealth method: voice only Patient verbally consented to treatment: Yes Patient verbally consented to billing insurance company: Yes Patient informed of any privacy concerns related to visit: Yes Minutes spent on Phone/Video with Pt.: 15 Assessment & Plan Assessment & Plan (1) Morbid obesity: Code(s): E66.01 - Morbid (severe) obesity due to excess calories Category: Medical Plan: Discussed the importance of committing to the program and herself. Discussed the importance of exercise and doing this regularly. Discussed consistency, purpose fullness, discipline, time as the keep principles to success. She states that she wishes to commit. We will have her return to the office in approximately 1 month, encouraged weekly weight check in and 10 lb loss in 1 month. She is in agreement with this plan. She will text with any questions or concerns.
[2023-11-14 08:31] VITALS: BMI 43.5
== END 2023-11-14 10:12 | disposition home or self-care (01) ==
LOC: HO.HBS 09:58
PROVIDERS: PCP Internal Medicine; Visit Provider Physician Assistant Surgical
DX: E66.01 Morbid (severe) obesity due to excess calories (principal)
CPT/HCPCS: 99213

== ENCOUNTER → 2023-11-14 09:58 | Outpatient (BNVA) | payer OTHER, SELFPAY | PROVIDERS: PCP Internal Medicine; Visit Provider Physician Assistant Surgical ==

== ENCOUNTER → 2023-11-19 08:05 | Outpatient (REF) | payer OTHER, SELFPAY | LOC: HO.SL 08:05 | PROVIDERS: PCP Internal Medicine; Visit Provider Physician Assistant Surgical | DX: G47.33 Obstructive sleep apnea (adult) (pediatric) (principal); G47.36 Sleep related hypoventilation in conditions classified elsewhere; E66.01 Morbid (severe) obesity due to excess calories; R40.0 Somnolence; K76.0 Fatty (change of) liver, not elsewhere classified; E03.9 Hypothyroidism, unspecified; R79.89 Other specified abnormal findings of blood chemistry | CPT/HCPCS: 95806 ==

== ENCOUNTER → 2023-11-19 08:13 | Outpatient (BNV) | payer OTHER, SELFPAY | PROVIDERS: PCP Internal Medicine; Visit Provider Internal Medicine | DX: G47.33 Obstructive sleep apnea (adult) (pediatric) (principal) | CPT/HCPCS: 95806 ==

== ENCOUNTER 2023-12-15 13:00 | Outpatient (AMB) | payer OTHER, SELFPAY ==
--- NOTE | 2023-12-15 10:30 | A.OFFVIS_ITS ---
VS Expanded 12/15/23 10:31 Height 5 ft 3 in Weight 245 lb 4 oz BMI 43.4 Body Fat % 58.2 Fat Free Mass 102.6 Visceral Fat Rating 24 Body Water % 28.7 Muscle Mass/Score 96.4 Basal Metabolic Rate/Score 1,370 Intake Visit Reasons: (TV) F/U SWL Funding Analyst Required: No Allergies No Known Allergies Allergy (Verified 10/01/23 13:29) Medication List - Last Reconciled 12/15/23 by GUILLAUME Jay albuterol sulfate 90 mcg/actuation 2 puffs inhalation QID PRN cholecalciferol (vitamin D3) 125 mcg PO DAILY escitalopram oxalate 20 mg PO DAILY levothyroxine 25 mcg PO DAILY loperamide (Imodium A-D) 2 mg PO Q6H PRN omeprazole 20 mg PO DAILY PRN ondansetron HCl 4 mg PO Q8H PRN secukinumab (Cosentyx) 150 mg subcut Q4W HPI Comments Details: Patient is a pleasant 48-year-old female who returns to the office today in follow-up. She was initially seen as a new patient in the Surgical weight loss program on 09/09/2023. At that time, her weight was 255.6 lb with a BMI of 45.3. Weight today is 245.4 lb with a BMI of 43.4. She has lost 10 lb or 3.9% total body weight loss. She is not following the right BMI erick plans. She has a hard time following the plans as she states she is not hungry at those times. She has lost approximately 0.2 lb in the last month. She reports that she is eating atkins protein bars but at night is having too many. Meal plan: 8-10 Premier protein, 1 scoop in 8 oz oat milk 11-1 another shake 2-4 another shake 5-7 meal 8 forks protein, 8 forks veg 8-10 Atkins bar Exercise plan: joined 2-3 x per week treadmill 45 min, 300 calories. walking outside, not tracking dell, 2 x per week, 1 hr, She has a hx of pulmonary nodules that were previously biopsied and she reports benign. She is continuing to be monitored by Pulmonology Dr Wilson, scheduled for chest [facility] in [facility]. [facility] Medical History Morbid obesity Sjogren's disease Transaminitis Lymphoproliferative disorder History of cervical cancer (~2015) Lymphoid hyperplasia Lymphadenopathy, mediastinal History of tobacco use Arthritis Surgical History History of laparoscopic cholecystectomy (03/04/23) History of esophagogastroduodenoscopy (EGD) Hx of colonoscopy History of lung surgery History of lung biopsy History of lung surgery History of cervical biopsy History of appendectomy (~1998) History of right oophorectomy (~1998) History of hysterectomy for cancer Family History Father Lung cancer Colon cancer Mother Breast CA Social History Household Members: Children Household Members Other:: , 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), 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 [facility] Do you presently have visiting nurse or other home services: No Alcohol intake: never Patient Tobacco Use Status: Former Tobacco user e-Cigarette/Vaping Use: Never Used Substance Use Type: Marijuana service: No Current occupational status: employed Cognitive needs: No Hearing needs: No Vision needs: Yes Telehealth Telehealth Telehealth Platform: Telephone Location of provider rendering services: practice address Location of patient: address on file Patient Identification confirmed using: Name, : Yes Telehealth method: voice only Patient verbally consented to treatment: Yes Patient verbally consented to billing insurance company: Yes Patient informed of any privacy concerns related to visit: Yes Minutes spent on Phone/Video with Pt.: 15 Assessment & Plan Assessment & Plan (1) Morbid obesity: Code(s): E66.01 - Morbid (severe) obesity due to excess calories Category: Medical Plan: Discussed the importance of following the plans and committing to the program. She states that she is having difficulty this and is going to think about it. She will try to commit to the plans and lose 10 lb of the next month. If she decides this is not the right program for her she will text me to cancel upcoming appointments. Encouraged to increase calories burned at the gym 2 daily. Return to clinic 1 month.
[2023-12-15 10:31] VITALS: BMI 43.4
== END 2023-12-15 13:36 | disposition home or self-care (01) ==
LOC: HO.HBS 13:06
PROVIDERS: PCP Internal Medicine; Visit Provider Physician Assistant Surgical
DX: E66.01 Morbid (severe) obesity due to excess calories (principal)
CPT/HCPCS: 99213

== ENCOUNTER → 2023-12-15 13:00 | Outpatient (BNVA) | payer OTHER, SELFPAY | PROVIDERS: PCP Internal Medicine; Visit Provider Physician Assistant Surgical ==

== ENCOUNTER 2024-01-12 15:35 | Outpatient (AMB) | payer OTHER, SELFPAY ==
[2024-01-12 15:42] VITALS: BP 102/68; PULSE 72; O2SAT 95; BMI 43.3
--- NOTE | 2024-01-12 15:42 | MHC.OFFVIS ---
Vital Signs 01/12/24 15:42 Height 5 ft 3 in Weight 244 lb 11.41 oz BMI 43.3 BP 102/68 Blood Pressure Location Lt brachial Position Sitting Pulse 72 Pulse Source Pulse Oximeter Pulse Oximetry (%) 95 Oxygen Delivery Method Room Air Intake Visit Reasons: Pulmonary nodules Director Of Informatics Required: No Allergies No Known Allergies Allergy (Verified 10/01/23 13:29) HPI Comments Details: The patient is a 48 year woman with a known history of cervical cancer status post hysterectomy back in 2017 and also found to have pulmonary nodules around the same time as well. The patient did undergo a CT-guided biopsy at that time which was nondiagnostic in very painful and traumatic 4. Ultimately she was referred to thoracic surgery where she underwent a wedge resection of the right lower lobe nodular density. The diagnosis was of an atypical lymphoid hyperplasia. No evidence of any lymphoma that was documented. The patient healed well from that. And she had been doing otherwise well. She was in her usual state health until more recently when she started developing acute onset abdominal pain. She went to the ER which she had a CT scan of the abdomen and pelvis. The CT scan of the abdomen picked up additional pulmonary nodules in therefore she was referred to Pulmonary. I did review her CT scan from [facility] from 2017 demonstrating the nodular densities primarily on the right side and also reviewed the pathology. We then compared that to her recent CT scan of the chest demonstrating no numerous peripheral base pulmonary nodules in a bronchovascular distribution primarily at the bases. Appears to be something hematogenous sleep spreading therefore metastatic disease is a potential concern. She does have a history of cancer in the past as well. There is also a history of lung cancer in the family. As far as her screenings she is 46 years old and she is scheduled to have a mammogram soon. She has not had any colonoscopies. Based on that CT scan findings and nodular densities measuring greater than 8 mm in size and also some evidence on lymphadenopathy I will request a PET scan to better address the issue. 07/17/2022 The patient is here for a pulmonary follow up visit. She did undergo the wedge biopsy. The patient is recovering well. Her biopsy demonstrated evidence of a lympho-prolifererative process. Blood dyscresia is a concern. She did have a biopsy back in 2017 which demonstrated lymphoid hyperplasia. But now numeruous nodules, some which her PET avid. She has an appointment with hematology oncology next week. In the mean time the patient has psoriasis increasing her risk for lymphopriliferative condiitons. We will request additional bloodwork. 01/15/2023 the patient is here for a pulmonary follow-up visit. The patient overall has been doing well from a respiratory status. She recovered well from surgery. She did follow-up with Oncology. She did have her PET scan and subsequently an MRI after that. At this point things are stable. We did do blood work. Appears that her Sjogren's antibodies are elevated and she also is treated for psoriatic arthritis. Explained to her that these 2 conditions can resulting in therefore proliferative conditions and therefore the circumstances that she finds. Therefore treating her audio me conditions will be crucial and try to minimize the lymphoproliferative component. The patient does have multiple pulmonary nodules. We did look at her last CT scan done in November 2022. Will continue to monitor the CT scans every 6 months in view of the size of the nodules. It is reassuring that the nodules have not changed in size when compared to her CT scan from June 2022. 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 At this point the patient will continue with current therapy and will follow-up with a CT scan in 6 months. 07/18/2023 the patient is here for a pulmonary follow-up visit. Overall the patient is doing okay. She is recovering from a cholecystectomy. She had a bad bout of cholecystitis. Now she is doing better. The patient also has been dealing with weight gain. She is considering weight management to help her with her significant weight gain that is affecting her overall health in addition to her respiratory status. She does complaint of dyspnea on exertion. Mild in severity. She continues to follow closely with GI and also Rheumatology. She did have an endoscopy. Interestingly the biopsies of her stomach did demonstrate areas of lymphocytic hyperplasia. Going along with her underlying lymphoproliferative condition. The patient does have underlying pulmonary nodules. Will continue to monitor them. The last CT scan was back in 11/06/2022. Will plan to repeat the CT scan fall 2023. will follow-up after that. 01/12/2024 the patient is here for a pulmonary follow-up visit. The patient overall has been doing well. She denies any respiratory complaints. She was having some issues with hepatitis over the summer. Ultimately she underwent a ultrasound of the right upper quadrant and demonstrated that her liver was normal. Also her blood work demonstrates a significant improvement in her hepatitis. She still has some elevations in the LFTs significantly improved. She will follow-up with GI. She did get a call about a biopsy of the liver and she was not sure. But she will follow-up with her GI doctor. In the meantime he last CT scan was back about a year ago. She has pulmonary nodules and they are greater than a cm in size some of them. Therefore, will have her get a CAT scan right now since she was due for CAT scan this fall. Depending on the findings will continue to follow with serial CT scans. She does have a history of Sjogren's. Currently she is not taking any medications. Now sure if this is related to her ongoing liver issues. [facility] Medical History Morbid obesity Sjogren's disease Transaminitis Lymphoproliferative disorder History of cervical cancer (~2015) Lymphoid hyperplasia Lymphadenopathy, mediastinal History of tobacco use Arthritis Surgical History History of laparoscopic cholecystectomy (03/04/23) History of esophagogastroduodenoscopy (EGD) Hx of colonoscopy History of lung surgery History of lung biopsy History of lung surgery History of cervical biopsy History of appendectomy (~1998) History of right oophorectomy (~1998) History of hysterectomy for cancer Family History Father Lung cancer Colon cancer Mother Breast CA Social History Household Members: Children Household Members Other:: , 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), 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 [facility] Do you presently have visiting nurse or other home services: No Alcohol intake: never Patient Tobacco Use Status: Former Tobacco user e-Cigarette/Vaping Use: Never Used Substance Use Type: Marijuana service: No Current occupational status: employed Cognitive needs: No Hearing needs: No Vision needs: Yes Review of Systems Const Denies fatigue, Denies fever(s), Denies malaise, Denies night sweats and Reports weight gain Eyes Denies change in vision ENT Denies change in voice Card Denies chest pain Resp Denies cough and Denies wheezing GI Reports as per HPI Musc Reports no additional complaints Skin/Breast Denies rash Neuro Reports no additional complaints Endo Denies fatigue Isiah/Lymph Denies easy bruising and Denies lymphadenopathy Aller/Immun Denies wheezing Physical Exam Vital Signs: Last Vital Signs Pulse 72 01/12/24 15:42 BP 102/68 01/12/24 15:42 Pulse Ox 95 01/12/24 15:42 Oxygen Delivery Method Room Air 01/12/24 15:42 BMI result Body Mass Index 43.3 Const General: comfortable HEENT Head: Yes normocephalic Eyes General: appearance normal, both eyes and all related structures Neck Neck: Yes supple Chest Chest palpation & inspection: normal inspection of the chest Resp Effort & Inspection: normal respiratory effort Auscultation: clear to auscultation bilaterally Cardio Rate: regular rate Rhythm: regular rhythm Heart sounds: S1 normal heart sound present and S2 normal heart sound present GI Palpation (GI): Soft to palpation Skin General skin exam: no rashes or lesions noted Extrem General: Yes no clubbing, cyanosis or edema Assessment & Plan Assessment & Plan (1) Lung nodules: Comment: (1.1cm RLL nodule suv max 4.6; 0.7cm RUL nodule suv max 2.2 - on 05/16/22 PET) Code(s): R91.8 - Other nonspecific abnormal finding of lung field Category: Medical (2) Lymphoid hyperplasia: Code(s): R59.9 - Enlarged lymph nodes, unspecified Category: Medical (3) Lymphoproliferative disorder: Code(s): D47.9 - Neoplasm of uncertain behavior of lymphoid, hematopoietic and related tissue, unspecified Category: Medical (4) Sjogren's disease: Code(s): M35.00 - Sjogren syndrome, unspecified Category: Medical Qualifiers: Sjogren organ or system involvement: lung involvement Qualified Code(s): M35.02 - Sjogren syndrome with lung involvement Plan CT chest F/U 12 months Orders: Orders CT chest wo IV con Today R91.8 - Other nonspecific abnormal finding of lung field Coding Level of Care Code Est Pt Level 4 (34916) Diagnoses Lung nodules R91.8 Lymphoid hyperplasia R59.9 Lymphoproliferative disorder D47.9 Sjogren's syndrome with lung involvement M35.02 Sjogren organ or system involvement: lung involvement Time Spent (min) 17
== END 2024-01-12 16:05 | disposition home or self-care (01) ==
PROVIDERS: PCP Internal Medicine; Visit Provider Hospitalist
DX: R91.8 Other nonspecific abnormal finding of lung field (principal); R59.9 Enlarged lymph nodes, unspecified; D47.9 Neoplasm of uncertain behavior of lymphoid, hematopoietic and related tissue, unspecified; M35.02 Sjogren syndrome with lung involvement
CPT/HCPCS: 99214

== ENCOUNTER 2024-01-21 11:00 | Outpatient (AMB) | payer OTHER, SELFPAY ==
--- NOTE | 2024-01-21 09:13 | A.OFFVIS_ITS ---
VS Expanded 01/21/24 09:14 Height 5 ft 3 in Weight 234 lb 6 oz BMI 41.5 Body Fat % 55.2 Body Fat Mass 129.4 Fat Free Mass 105 Visceral Fat Rating 22 Body Water % 30.7 Body Water Mass 72 Muscle Mass/Score 98.8 Basal Metabolic Rate/Score 1,406 Intake Visit Reasons: (TV) F/U SWL Allergies No Known Allergies Allergy (Verified 10/01/23 13:29) HPI Comments Details: Patient is a pleasant 48-year-old female who returns to the office today in follow-up. She was initially seen as a new patient in the Surgical weight loss program on 09/09/2023. At that time, her weight was 255.6 lb with a BMI of 45.3. Weight today is 234.6 lb with a BMI of 41.6. She has lost 21 lb or 8.2% total body weight loss. She is using the [employer] erick. She had a sleep study and was positive for sleep apnea. She has not recently updated the erick with her most up-to-date weight. Meal plan: 7-9 Atkins RTD 1/2 shake 11-1 another shake or bar 2-4 another shake or bar 5-7 meal 7 forks protein, 7 forks veg 8-10 Atkins shake or bar Drinking 80 oz water Exercise plan: joined 5-6 x per week treadmill 45-60 min, 350-400 calories. speed 3.2, incline 0 She has a hx of pulmonary nodules that were previously biopsied and she reports benign. She is continuing to be monitored by Pulmonology bryan Pritchard for chest CT in , unfortunately that was not done due to insurance denial. She saw pulmonology in December and CT scan was ordered. [facility] Medical History Morbid obesity Sjogren's disease Transaminitis Lymphoproliferative disorder History of cervical cancer (~2015) Lymphoid hyperplasia Lymphadenopathy, mediastinal History of tobacco use Arthritis Surgical History History of laparoscopic cholecystectomy (03/04/23) History of esophagogastroduodenoscopy (EGD) Hx of colonoscopy History of lung surgery History of lung biopsy History of lung surgery History of cervical biopsy History of appendectomy (~1998) History of right oophorectomy (~1998) History of hysterectomy for cancer Family History Father Lung cancer Colon cancer Mother Breast CA Social History Household Members: Children Household Members Other:: , 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), 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: 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 Do you presently have visiting nurse or other home services: No Alcohol intake: never Patient Tobacco Use Status: Former Tobacco user e-Cigarette/Vaping Use: Never Used Substance Use Type: Marijuana service: No Current occupational status: employed Cognitive needs: No Hearing needs: No Vision needs: Yes Telehealth Telehealth Telehealth Platform: Telephone Location of provider rendering services: practice address Location of patient: address on file Patient Identification confirmed using: Name, : Yes Telehealth method: voice only Patient verbally consented to treatment: Yes Patient verbally consented to billing insurance company: Yes Patient informed of any privacy concerns related to visit: Yes Minutes spent on Phone/Video with Pt.: 20 Assessment & Plan Assessment & Plan (1) Morbid obesity: Code(s): E66.01 - Morbid (severe) obesity due to excess calories Category: Medical Plan: Patient continues to use right BMI erick. She has lost proximally 8.2% total body weight loss. We will refer her to Dr. Sparks for continued preoperative surgical weight loss management. She was instructed to update her erick regarding her weight as she has not done this in quite some time. Additionally, discussed the importance of exercise, maintaining her speed on her treadmill although increasing the incline by 1 every 3 minutes to her max incline, perhaps 6 or 8, and then going back down to 1 in the same fashion. This will help her to be more efficient in her calories burn. She states that she will do this. Regarding her sleep apnea, she has not been contacted by sleep medicine and I called sleep medicine credit control manager to give her the patient's name and date of to reach out as the recommendation was to start CPAP. Medications: New thiamine HCl (vitamin B1) 100 mg PO DAILY 90 days 90 tabs 2RF
[2024-01-21 09:14] VITALS: BMI 41.5
== END 2024-01-21 11:44 | disposition home or self-care (01) ==
LOC: HO.HBS 11:44
PROVIDERS: PCP Internal Medicine; Visit Provider Physician Assistant Surgical
DX: E66.01 Morbid (severe) obesity due to excess calories (principal)
CPT/HCPCS: 99213

== ENCOUNTER → 2024-01-21 11:00 | Outpatient (BNVA) | payer OTHER, SELFPAY | PROVIDERS: PCP Internal Medicine; Visit Provider Physician Assistant Surgical | DX: E66.01 Morbid (severe) obesity due to excess calories (principal) ==

== ENCOUNTER 2024-02-23 07:52 | Outpatient (AMB) | payer OTHER, SELFPAY ==
--- NOTE | 2024-02-23 07:59 | MHC.OFFVISWM ---
VS Expanded 02/23/24 08:02 BP 116/65 Blood Pressure Location Lt brachial Blood Pressure Position Sitting Pulse 84 Pulse Oximetry 98 Height 5 ft 3 in Weight 224 lb 6 oz BMI 39.7 Body Fat % 36.3 Body Fat Mass 57.4 Fat Free Mass 100.6 Visceral Fat Rating 10.0 Body Water % 44.8 Body Water Mass 70.8 Muscle Mass/Score 95.4 Basal Metabolic Rate/Score 1,364 Intake Visit Reasons: OV Consult / Transfer Emiliano Allergies No Known Allergies Allergy (Verified 02/23/24 10:03) Medication List - Last Reconciled 02/23/24 by Abdifatah Sparks MD albuterol sulfate 90 mcg/actuation 2 puffs inhalation QID PRN cholecalciferol (vitamin D3) 125 mcg PO DAILY escitalopram oxalate 20 mg PO DAILY levothyroxine 25 mcg PO DAILY Olux 0.05% (clobetasol) 1 appl topical BEDTIME NS omeprazole 20 mg PO DAILY PRN secukinumab (Cosentyx) 150 mg subcut Q4W thiamine HCl (vitamin B1) 100 mg PO DAILY 90 days HPI Comments Details: Overall weight loss: 31.1 lbs, or 12.16% TBWL Is doin 1.5 premade Atkins shakes per day, 2.5 Atkins protein bars and one meal (7 forks of protein and 7 forks of salad or vegetables) Exercise: Gym x5/wk Reviewed: Blood work CXR EKG Abdominal US Sleep study Therapist evaluations [facility] Medical History Morbid obesity Sjogren's disease Transaminitis Lymphoproliferative disorder History of cervical cancer (~2015) Lymphoid hyperplasia Lymphadenopathy, mediastinal History of tobacco use Arthritis Surgical History History of laparoscopic cholecystectomy (03/04/23) History of esophagogastroduodenoscopy (EGD) Hx of colonoscopy History of lung surgery History of lung biopsy History of lung surgery History of cervical biopsy History of appendectomy (~1998) History of right oophorectomy (~1998) History of hysterectomy for cancer Family History Father Lung cancer Colon cancer Mother Breast CA Social History Household Members: Children Household Members Other:: , 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), 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[facility] Do you presently have visiting nurse or other home services: No Alcohol intake: never Patient Tobacco Use Status: Former Tobacco user e-Cigarette/Vaping Use: Never Used Substance Use Type: Marijuana service: No Current occupational status: employed Cognitive needs: No Hearing needs: No Vision needs: Yes Physical Exam Vital Signs: Last Vital Signs Pulse 84 02/23/24 08:02 BP 116/65 02/23/24 08:02 Pulse Ox 98 02/23/24 08:02 BMI result Body Mass Index 39.7 GI Inspection: Yes normal to inspection (androind) and Yes incision (well healed) Palpation (GI): Soft to palpation Extrem Right lower extremity: normal to inspection Left lower extremity: normal to inspection Assessment & Plan Assessment & Plan (1) Obesity: Code(s): E66.9 - Obesity, unspecified Category: Medical Qualifiers: Obesity type: due to excess calories Obesity classification: adult class 2 (BMI 35 - 39.9) Serious obesity comorbidity presence: with serious comorbidity Body mass index: BMI 39.0-39.9 Qualified Code(s): E66.812 - Obesity, class 2; E66.01 - Morbid (severe) obesity due to excess calories; Z68.39 - Body mass index [BMI] 39.0-39.9, adult Plan: 1.? Plan for lap sleeve gastrectomy. If diaphragmatic or ventral hernias are present at time of surgery, these will be repaired laparoscopically as well. I emphasized the importance of close follow-up, adherence to instructions and good communication. The surgery does not replace the need to change your lifestlyle which is the cause of the obesity problem. The surgery provides the motivation to try again to change your lifestyle, it reduces the appetite and make the transition to a better lifestyle easier and doubles the amount of weight you would lose compared to doing the lifestyle change without the surgery. You will need to be on a liquid diet with protein shakes for 2 weeks before surgery to maximize weight loss and boost your nutritional status to recover better from surgery and also for the first two weeks after surgery to let the stomach heal before we introduce other foods. After the first 2 weeks we will introduce protein bars and soft foods like scrambled eggs, cottage cheese and yogurt and after the 6th week will introduce meat, fish and cooked vegetables in small amounts. Over time you should be able to eat everything in small amounts. Side effects like nausea, vomiting, heartburn or abdominal pain are not common in the practice unless you are not following in the practice. This operation requires lifetime commitment to following in our practice and communication with me. You will much less weight and experience side effects if you don?t communicate or not following in the practice. Complications are rare and in our practice is about 1/10 of the national average. However, you can develop bleeding that may require transfusion (hasn?t happened for year in the practice), you may from complications (we did not have any deaths in the practice) and infections. Infections are usually a result of breakdown in communication or not understanding or following directions correctly. They are difficult to treat, they can happen during the first 6 weeks, they may require to be in the hospital for weeks or even months, not being able to eat by mouth and you may have drains and surgeries to try and correct the issue. Other risks and complications include possible conversion to an open procedure, leaks, small bowel obstruction, blood clots, cardiac, or pulmonary complications, as intermediate card tender complications such as ulcers, insufficient weight loss and vitamin deficiencies. 2. The patient participated in a structured preoperative lifestyle intervention program supervised by a physician the 5.5 months preceding the surgical procedure. The lifestyle intervention included a structured nutritional plan with a specific daily protein intake goal, an exercise plan with a 2000 calorie burn weekly goal, weekly behavior modification guidance and completion of eight 1-hour online nutritional classes and passing successfully the corresponding quizzes. Adherence to preoperative care plan was demonstrated by completing an extensive preoperative work-up. Program participation was demonstrated by completing 5 visits with our medical team and by sharing weekly weight measurements weekly for 5.5 consecutive months via an approved body composition scale. Compliance to the lifestyle intervention was demonstrated by achieving a 31.1lbs weight-loss or 12.16% total body weight loss (TBWL). No medications were used to achieve this weight loss. In our published experience an over 7% preoperative TBWL, achieved by meeting the diet and exercise goals of our program improves surgical outcomes, reduces the potential for surgical complications, and predicts a statistically significant higher weight loss up to 6 years postoperatively. 3. Continue same nutritional plan 4. Create an exercise plan with the [employer] erick 5. Send me weight measurements weekly on Mondays 6. Has severe sleep apnea and referral for an auto-CPAP was made
[2024-02-23 08:02] VITALS: BP 116/65; PULSE 84; O2SAT 98; BMI 39.7
== END 2024-02-23 10:08 | disposition home or self-care (01) ==
PROVIDERS: PCP Internal Medicine; Visit Provider Surgery
DX: E66.812 Obesity, class 2 (principal); Z68.39 Body mass index [BMI] 39.0-39.9, adult
CPT/HCPCS: 99214

== ENCOUNTER 2024-02-25 09:22 | Outpatient (REF) | payer OTHER, SELFPAY ==
--- NOTE | ~2024-02-25 | FL_ITS ---
EXAMINATION: XR FLUOROSCOPY UPPER GI WITH AIR CLINICAL INFORMATION: Preoperative evaluation prior to bariatric surgery COMPARISON: None TECHNIQUE: Fluoroscopic air contrast upper GI examination was performed utilizing standard techniques with thin and thick barium and effervescent granules. Numerous spot images were obtained. FINDINGS: Dual and single contrast images of the esophagus demonstrate normal caliber, contour, and mucosal pattern. No evidence of stricture, mass, or ulcerations identified. Esophageal peristalsis is mildly disorganized. A very small type I hiatal hernia is identified. A moderate amount of gastroesophageal reflux is seen up to the level of the aortic arch. Dual contrast and single contrast images of the stomach demonstrated normal contour and mucosal pattern without evidence of mass, ulceration, or other abnormality. Contrast freely passed into the gastric antrum and duodenal bulb without delay. Single and air-contrast images of the duodenal bulb demonstrate no abnormality. The duodenal sweep has a normal appearance, course, and mucosal fold appearance. The imaged proximal jejunum has a normal fold pattern and caliber. FLUOROSCOPY TIME: 3 minutes 22 seconds Number of Spot Images: 6 Number of Cine: 11 DOSE AREA PRODUCT: [id number] uGy-m2 (microgray-meter squared) FL/FL upper GI w air IMPRESSION: 1. Mildly disorganized esophageal peristalsis. 2. Very small type I hiatal hernia with moderate gastroesophageal reflux. This procedure was performed by Benjamín Rodriguez PA-C, and supervised by Dr. Lewis Electronically signed by: Jeff Lewis MD 02/26/2024 12:59 PM [facility]
== END 2024-02-25 09:23 | disposition home or self-care (01) ==
LOC: HO.XRAY 09:22
PROVIDERS: PCP Internal Medicine; Visit Provider Physician Assistant Surgical
DX: E66.01 Morbid (severe) obesity due to excess calories (principal); R40.0 Somnolence; K76.0 Fatty (change of) liver, not elsewhere classified
CPT/HCPCS: 74246

== ENCOUNTER → 2024-02-25 09:24 | Outpatient (BNV) | payer OTHER, SELFPAY | PROVIDERS: PCP Internal Medicine; Visit Provider Physician Assistant Surgical | DX: E66.01 Morbid (severe) obesity due to excess calories (principal); Z01.818 Encounter for other preprocedural examination | CPT/HCPCS: 74246 ==

== ENCOUNTER 2024-03-05 07:59 | Outpatient (AMB) | payer OTHER, SELFPAY ==
--- NOTE | 2024-03-05 12:06 | MHC.OFFVISWM ---
VS Expanded 03/05/24 12:19 Height 5 ft 3 in Weight 226 lb 2 oz BMI 40.1 Body Fat % 52.9 Body Fat Mass 119.6 Fat Free Mass 106.6 Visceral Fat Rating 21 Body Water % 32.3 Body Water Mass 73 Basal Metabolic Rate/Score 1,403 Intake Visit Reasons: TV Pre Op LSG 03/17/24 Allergies No Known Allergies Allergy (Verified 03/05/24 12:06) Medication List - Last Reconciled 03/05/24 by Abdifatah Sparks MD albuterol sulfate 90 mcg/actuation 2 puffs inhalation QID PRN cholecalciferol (vitamin D3) 125 mcg PO DAILY escitalopram oxalate 20 mg PO DAILY levothyroxine 25 mcg PO DAILY Olux 0.05% (clobetasol) 1 appl topical BEDTIME NS omeprazole 20 mg PO DAILY PRN ondansetron 4 mg PO Q12H pantoprazole 40 mg PO DAILY polyethylene glycol 3350 17 grams PO DAILY secukinumab (Cosentyx) 150 mg subcut Q4W sucralfate 10 mL PO BID thiamine HCl (vitamin B1) 100 mg PO DAILY 90 days HPI HPI TV Pre Op LSG 03/17/24: Details: Start time: 11.58am, End time: 12.28pm ?I spent 25 minutes speaking with the patient on the phone plus an additional 5 minutes reviewing and updating records for a total of 30 minutes HPI Comments Details: Overall weight loss: 31.1lbs, or 12.16% TBWL Is doing 1.5 premade Atkins shakes, 2.5 Atkins bars and a meal (7 forks of meat and 7 forks of salad) PFSH Medical History Morbid obesity Sjogren's disease Transaminitis Lymphoproliferative disorder History of cervical cancer (~2015) Lymphoid hyperplasia Lymphadenopathy, mediastinal History of tobacco use Arthritis Surgical History History of laparoscopic cholecystectomy (03/04/23) History of esophagogastroduodenoscopy (EGD) Hx of colonoscopy History of lung surgery History of lung biopsy History of lung surgery History of cervical biopsy History of appendectomy (~1998) History of right oophorectomy (~1998) History of hysterectomy for cancer Family History Father Lung cancer Colon cancer Mother Breast CA Social History Household Members: Children Household Members Other:: , 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), 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 [facility] Do you presently have visiting nurse or other home services: No Alcohol intake: never Patient Tobacco Use Status: Former Tobacco user e-Cigarette/Vaping Use: Never Used Substance Use Type: Marijuana service: No Current occupational status: employed Cognitive needs: No Hearing needs: No Vision needs: Yes Telehealth Telehealth Telehealth Platform: Telephone Location of provider rendering services: practice address Location of patient: address on file Patient Identification confirmed using: Name, : Yes Telehealth method: voice only Patient verbally consented to treatment: Yes Patient verbally consented to billing insurance company: Yes Patient informed of any privacy concerns related to visit: Yes Minutes spent on Phone/Video with Pt.: 30 Assessment & Plan Assessment & Plan (1) Morbid obesity: Code(s): E66.01 - Morbid (severe) obesity due to excess calories Category: Medical Plan: 1. Plan for lap sleeve gastrectomy including upper GI endoscopy. All tests has been completed and reviewed and the patient is cleared for the surgery. ?If diaphragmatic or ventral hernias are present at time of surgery, these will be repaired laparoscopically as well. Risks and complications were discussed in detail including possible conversion to an open procedure, anastomotic leak, bleeding requiring transfusion, small bowel obstruction, , DVT and pulmonary embolism, cardiac, or pulmonary complications, as penitentiary complications such as anastomotic ulcer, insufficient weight loss and vitamin deficiencies. I emphasized the importance of close follow-up, adherence to instructions and good communication. So far she has proven to be an excellent communicator and very compliant with all our directions accomplishing a great weight loss. I believe that she is an excellent candidate and she is ready. 2. Preop prescriptions were provided and explained the purpose of each one. Need to be purchased preop. Start Pantoprazole now as you get it from the pharmacy, 1 pill per day. Sucralfate and Zofran are for after surgery as needed. 3. Bowel prep: please do 7 packets ?of Miralax mixing each one with a an 8oz glass of water, crystal light, gatorade zero, or propel ?on 03/15/24 and the same amount on 03/16/24. The Miralax you begin with one packet at a time in 8oz water or crystal light, gatorade zero, or propel ?as early in the day as you can and you do them back to back until you finish them. Continue the protein shakes during ?the bowel prep. 4. Needs to purchase 1oz medicine cups . 5. Needs to purchase Children's liquid Tylenol for postop pain control. 6. She needs to stop the Cosentyx now and do not restart it before 04/17/24. Avoid aspirin, motrin, Advil, Aleve, Meloxicam, Excedrin, Ibuprofen, Naproxyn. Tylenol is OK. 7. She needs to purchase the Celebrate multivitamins from the hospital's gift shop. 8. Will do basic preop blood work-up any day between Friday03/08/24 and Friday03/13/24 fasting for 12 hours and is scheduled to see the Anesthesiologist prior to the day of surgery. 9. Importance of adherence to postop folllow-up and recommendations was underscored and she understands that. 10. Stop food and bars as of tomorrow 03/06/2024 and create an aggressive meal plan with the [employer] erick and send me a screenshot of the plan you will create 11. No soups, broths or V8 12. The patient's?medical?history has been reviewed and they are considered low risk for post op DVT and therefore DVT prophylaxis is not considered necessary. Travel after surgery was reviewed. The patient has not disclosed any travel plans during the first 30 days after surgery and they have been advised that within the first 30 days after surgery any bus, plane, train or car travel over 2 hours in duration is contraindicated due to the possibility of developing blood clots from immobility. Any travel, needs to include periods of ambulation of 10 minutes in duration every 2 hours.? Patient was instructed to discuss any plans for travel during this period with their bariatric surgeon.? 13. Use your CPAP daily and bring it to the hospital with your mask 14. Please take at the day of surgery the following medications: NONE 15. Stop any control pills and don't use them for one month after surgery 16. Absolutely no smoking or vaping, or marijuana until the surgery and for at least the first 4 weeks. Only nicotine patches are allowed. 17. Send me weight measurements on Friday03/12/24 and then on Friday03/17/24, the day of surgery before you go to the hospital. 18. Avoid any steroids by mouth for any reason. Let me know if someone prescribes them to you 19. These instructions supersede anything else you read in the handbook, anything you watched in videos or classes or you were told by any other provider. If there is any conflict, you follow the above instructions and nothing else. Orders: Orders Comprehensive Met. Panel Today E66.01 - Morbid (severe) obesity due to excess calories Prothrombin Time INR Today E66.01 - Morbid (severe) obesity due to excess calories Hemoglobin A1c Today E66.01 - Morbid (severe) obesity due to excess calories Lipid Panel Today E66.01 - Morbid (severe) obesity due to excess calories Type and Screen Today E66.01 - Morbid (severe) obesity due to excess calories C Reactive Protein Today E66.01 - Morbid (severe) obesity due to excess calories TSH reflex Free T4 Today E66.01 - Morbid (severe) obesity due to excess calories Partial Thromboplastin Time Today E66.01 - Morbid (severe) obesity due to excess calories Complete Blood Count Auto Diff Today E66.01 - Morbid (severe) obesity due to excess calories Insulin Today E66.01 - Morbid (severe) obesity due to excess calories Medications: New ondansetron Only take one every 12 hours as needed if you have nausea 4 mg PO Q12H 20 tabs 0RF nausea and vomiting R11.0 - Nausea polyethylene glycol 3350 Mix each measuring cup with 8oz of water, Crystal light, or Gatorade zero, or Propel and do 7 measuring cups on 03/15/24 and another 7 measuring cups on 03/16/24 17 grams PO DAILY 238 grams 0RF Z01.818 - Encounter for other preprocedural examination pantoprazole 40 mg PO DAILY 90 tabs 0RF K21.9 - Gastro-esophageal reflux disease without esophagitis sucralfate 10 mL PO BID 600 mL 2RF K21.9 - Gastro-esophageal reflux disease without esophagitis
[2024-03-05 12:19] VITALS: BMI 40.1
== END 2024-03-05 12:30 | disposition home or self-care (01) ==
LOC: HO.HBS 07:59
PROVIDERS: PCP Internal Medicine; Visit Provider Surgery
DX: E66.01 Morbid (severe) obesity due to excess calories (principal)
CPT/HCPCS: 99499

== ENCOUNTER → 2024-03-05 07:59 | Outpatient (BNVA) | payer OTHER, SELFPAY | PROVIDERS: PCP Internal Medicine; Visit Provider Surgery ==

== ENCOUNTER 2024-03-13 08:35 | Outpatient (REF) | payer OTHER, SELFPAY ==
[2024-03-13 09:01] LABS: MANUAL DIFF FLAG NO
[2024-03-13 09:10] LABS: Basophils Percent Auto 0.4 % (0-2); Eosinophils Absolute Auto 0.2 X10*3/uL (0.0-0.4); Eosinophils Percent Auto 2.8 % (0-4); Hematocrit 40.5 % (37.0-47.0); Hemoglobin 13.4 g/dl (12.0-16.0); Imm Gran Abs Auto 0.02 X10*3/uL (0.00-0.03); Imm Gran Pct Auto 0.4 % (0.0-0.4); Lymphocytes Absolute Auto 1.3 X10*3/uL (1.2-4.9); Mean Corpuscular HGB Conc 33.1 g/dl (31.0-35.0); Mean Corpuscular Hemoglobin 27.8 pg (27.0-33.0); Mean Platelet Volume 10.3 fL (9.4-12.3); Monocytes Absolute Auto 0.4 X10*3/uL (0.1-1.2); Monocytes Percent Auto 6.9 % (2-11); Neutrophils Absolute Auto 3.4 x10*3/uL (2.0-8.3); Neutrophils Percent Auto 64.5 % (45-73); Platelet Count 302 X10*3/uL (160-400); Red Blood Count 4.82 X10*6/uL (4.20-5.50); Red Cell Distribution Width 13.8 % (11.0-16.0); White Blood Count 5.3 X10*3/uL (4.8-10.8)
[2024-03-13 09:14] LABS: Prothrombin Time 11.4 SEC (10.9-12.4)
[2024-03-13 09:17] LABS: Partial Thromboplastin Time 33.6 SEC (26.0-36.8)
[2024-03-13 09:23] LABS: Estimated Average Glucose 100 mg/dL; Hemoglobin A1C 114.3108 umol/L; Hemoglobin A1c % 5.1 % (<6.0); Total Hemoglobin (HGBA1C) 3503.8489 umol/L
[2024-03-13 09:45] LABS: Alanine Aminotransferase 41 U/L (0-31); Albumin Level 4.3 g/dL (3.5-5.0); Alkaline Phosphatase 72 U/L (39-117); Anion Gap 11 (12-20); Aspartate Amino Transferase 32 U/L (5-31); Bilirubin Total 0.6 mg/dL (0.0-1.0); Blood Urea Nitrogen 15 mg/dL (9-16); C Reactive Protein 1.64 mg/dL (< or = 0.50); Calcium 9.7 mg/dL (8.4-10.2); Carbon Dioxide 25 mmol/L (22-29); Chloride 106 mmol/L (96-108); Cholesterol 174 mg/dL (<200); Estimated Glomerular Filt Rate > 60; Glucose Fasting 95 mg/dL (60-99); HDL Cholesterol 62 mg/dL (>40); LDL Cholesterol Calculated 101 mg/dL (<100); Potassium 4.2 mmol/L (3.3-5.1); Sodium 138 mmol/L (135-145); Total Protein 8.4 g/dL (6.5-8.0); Triglycerides 59 mg/dL (<150)
[2024-03-13 09:49] LABS: C Reactive Protein 1.63 mg/dL (< or = 0.50); Cholesterol 170 mg/dL (<200); HDL Cholesterol 62 mg/dL (>40); LDL Cholesterol Calculated 97 mg/dL (<100); Triglycerides 59 mg/dL (<150)
[2024-03-13 10:02] LABS: TSH reflex Free T4 3.26 uIU/mL (0.32-4.0)
[2024-03-13 10:06] LABS: Insulin 9 uU/mL (2-29)
[2024-03-17 19:58] LABS: Aldolase 5.3 U/L (<=8.1)
== END 2024-03-13 08:36 | disposition home or self-care (01) ==
LOC: HO.LAB 08:35
PROVIDERS: Internal Medicine Gastroenterology; Absent Provider Internal Medicine; PCP Internal Medicine; Visit Provider Surgery
DX: R79.89 Other specified abnormal findings of blood chemistry (principal); E03.9 Hypothyroidism, unspecified; K76.0 Fatty (change of) liver, not elsewhere classified; R74.01 Elevation of levels of liver transaminase levels; E66.01 Morbid (severe) obesity due to excess calories; K52.9 Noninfective gastroenteritis and colitis, unspecified; M35.00 Sjogren syndrome, unspecified
CPT/HCPCS: 36415; 80053; 80061; 82085; 82550; 83036; 83525; 84443; 85025; 85610; 85730; 86140

== ENCOUNTER 2024-03-17 05:52 | Day surgery (SDC) | payer OTHER, SELFPAY ==
[2024-03-11 09:23] VITALS: BMI 39.3
[2024-03-17] VITALS (11 sets, daily range): BP systolic 105–131; BP diastolic 51–86; PULSE 59–81; RESP 16–20; TEMP 36.1–36.6; O2SAT 94–100; BMI 38.5
[2024-03-17] MEDS: Lactated Ringers 1,000 ML 100 ML IVCONT ×2 (06:52→12:15)
[2024-03-17] MEDS: Lactated Ringers 1,000 ML 999 ML IV (06:53)
[2024-03-17] MEDS: Aprepitant 32 MG/4.4 ML VIAL IVPUSH (06:53)
--- NOTE | 2024-03-17 07:00 | HO.ANESPROP2 ---
Documented by User: Kristal Moyer NP 03/15/24 14:21 HPI - Anesthesia Eval Consult details Narrative: 48yo F for Gastrectomy Sleeve - EGD, possible diaphragmatic hernia, possible ventral hernia, possible open s/p RML medial segment wedge/vats & RLL basilar segment = lymphoid hyperplasia - [facility] - 07/24/2016 [facility] Active Problems Active Problems: All Active Problems Nocturnal hypoxemia (Acute) Encounter for well woman exam with routine gynecological exam (Acute) Daytime sleepiness (Acute) Conjunctivitis (Acute) Abnormal findings on esophagogastroduodenoscopy (EGD) (Acute) Diarrhea (Acute) S/P laparoscopic cholecystectomy (Acute) Acute cholecystitis (Acute) Fatty liver (Acute) Annual physical exam (Acute) Ankle pain, left (Acute) MALToma (Acute) Obesity (Acute) Hypothyroid (Acute) GERD (gastroesophageal reflux disease) (Acute) FHx: colon cancer (Acute) Left nephrolithiasis (Acute) Asymptomatic gallstones (Acute) Anxiety (Acute) Elevated LFTs (Acute) Psoriatic arthritis (Acute) Lung nodules (Acute) Morbid obesity (Acute) Sjogren's disease (Acute) Transaminitis (Acute) Lymphoproliferative disorder (Acute) History of cervical cancer (Acute ~2016) Lymphoid hyperplasia (Acute) Lymphadenopathy, mediastinal (Acute) History of tobacco use (Acute) Past Medical History Medical History (Updated 03/11/24 @ 09:23 by Beverly Zuñiga RN) Hepatitis Sleep apnea Sjogren's disease Transaminitis Lymphoproliferative disorder Morbid obesity History of cervical cancer (~2015) Lymphoid hyperplasia Lymphadenopathy, mediastinal History of tobacco use Arthritis Family History Family History Father Lung cancer Colon cancer Mother Breast CA Family history of problems with anesthesia: No Surgical History Surgical History History of laparoscopic cholecystectomy (03/04/23) History of esophagogastroduodenoscopy (EGD) Hx of colonoscopy History of lung surgery History of lung biopsy History of lung surgery History of cervical biopsy History of appendectomy (~1998) History of right oophorectomy (~1998) History of hysterectomy for cancer History of Problems with Anesthesia: No Social History Social History Household Members: Children Household Members Other:: , 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), 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 If so, by whom?: No Are you DNR?: No Advance Directives: No Advance Directives Information Provided: Yes Advance Directives on File: No Recently lost weight without trying: No Eating poorly because of decreased appetite: No Nutrition Risks: No Nutritional Risk Patient : No : No Poor oral hygiene: Yes (two upper left crowns, missing teeth) service: No Current occupational status: employed Cognitive needs: No Hearing needs: No Vision needs: Yes Meds Allergies Allergy/AdvReac Type Severity Reaction Status Date / Time No Known Allergies Allergy Verified 03/17/24 06:38 Home Medications ?Medication ?Instructions ?Recorded ?Confirmed ?Last Taken ?Type secukinumab 150 mg/mL subcutaneous 150 mg subcut Q4W 05/01/22 03/17/24 02/17/24 History syringe (Cosentyx) ondansetron 4 mg disintegrating 4 mg PO Q12H PRN nausea and 03/17/24 03/17/24 Unknown History tablet vomiting Exam Height,Weight and Vital Signs: Height 5 ft 3 in Weight 100.698 kg Pertinent Lab Results Pertinent Lab Results: Laboratory Tests 03/13/24 08:51 Blood Type O Positive Antibody Screen NEGATIVE Laboratory Tests 03/13/24 08:59 WBC 5.3 Hgb 13.4 Hct 40.5 Plt Count 302 Sodium 138 Potassium 4.2 Chloride 106 Carbon Dioxide 25 BUN 15 Creatinine 0.70 Narrative Narrative: EKG 09/2023 Vent. Rate : 070 BPM Atrial Rate : 070 BPM P-R Int : 158 ms QRS Dur : 096 ms QT Int : 392 ms P-R-T Axes : 037 055 023 degrees QTc Int : 423 ms Normal sinus rhythm Normal ECG When compared with ECG of 03-MAR-2023 20:23, No significant change was found Assessment and Plan Assessment Anesthesia Assessment: Chart Reviewed Final Anesthetic Review Family History of Problems with Anesthesia: No History of Problems with Anesthesia: No Documented by User: Lamar Newman DO 03/17/24 08:12 [facility] Past Medical History Medical History (Updated 03/11/24 @ 09:23 by Beverly Zuñiga, MARY) Hepatitis Sleep apnea Sjogren's disease Transaminitis Lymphoproliferative disorder Morbid obesity History of cervical cancer (~2015) Lymphoid hyperplasia Lymphadenopathy, mediastinal History of tobacco use Arthritis Family History Family History Father Lung cancer Colon cancer Mother Breast CA Family history of problems with anesthesia: No Surgical History Surgical History History of laparoscopic cholecystectomy (03/04/23) History of esophagogastroduodenoscopy (EGD) Hx of colonoscopy History of lung surgery History of lung biopsy History of lung surgery History of cervical biopsy History of appendectomy (~1998) History of right oophorectomy (~1998) History of hysterectomy for cancer History of Problems with Anesthesia: No Social History Social History Household Members: Children Household Members Other:: , 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), 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 If so, by whom?: No Are you DNR?: No Advance Directives: No Advance Directives Information Provided: Yes Advance Directives on File: No Recently lost weight without trying: No Eating poorly because of decreased appetite: No Nutrition Risks: No Nutritional Risk Patient : No : No Poor oral hygiene: Yes (two upper left crowns, missing teeth) service: No Current occupational status: employed Cognitive needs: No Hearing needs: No Vision needs: Yes Meds Allergies Allergy/AdvReac Type Severity Reaction Status Date / Time No Known Allergies Allergy Verified 03/17/24 06:38 Home Medications ?Medication ?Instructions ?Recorded ?Confirmed ?Last Taken ?Type secukinumab 150 mg/mL subcutaneous 150 mg subcut Q4W 05/01/22 03/17/24 02/17/24 History syringe (Cosentyx) ondansetron 4 mg disintegrating 4 mg PO Q12H PRN nausea and 03/17/24 03/17/24 Unknown History tablet vomiting Exam Exam Date and Time: 03/17/24 0700 Height,Weight and Vital Signs: Height 5 ft 3 in Weight 100.698 kg Height 5 ft 3 in Weight 98.52 kg Vital Signs Temperature 97.4 F 03/17/24 06:32 Pulse Rate 69 03/17/24 06:32 Respiratory Rate 16 03/17/24 06:32 Blood Pressure 105/67 03/17/24 06:32 Pulse Oximetry 96 03/17/24 06:32 Oxygen Delivery Method Room Air 03/17/24 06:32 Temperature 97.4 F 03/17/24 06:32 Pulse Rate 69 03/17/24 06:32 Respiratory Rate 16 03/17/24 06:32 Blood Pressure 105/67 03/17/24 06:32 Pulse Oximetry 96 03/17/24 06:32 Oxygen Delivery Method Room Air 03/17/24 06:32 Airway Mallampati Class: I TM Dist: <=3cm Neck ROM: Full Loose/Missing/Broken Teeth: No (patient denies any loose or broken teeth) Heart: S1S2 Lungs: CTAB Assessment and Plan Assessment Anesthesia Assessment: Anesthesia Plan Discussed and Chart Reviewed Final Anesthetic Review Family History of Problems with Anesthesia: No History of Problems with Anesthesia: No NPO: Yes ASA Class: III Final Preanesthetic Review: No Changes in Pt Med Stat, Meds/Allgs Chart Reviewed, Consent Obtained/Reviewed and Anes Risks/Benef Reviewed Patient Risk: Intermediate Procedure Risk: Intermediate Anesthetic Plan Anesthetic Plan: GA and Agree w/ Assess. and Plan Disposition: Standard PACU
--- NOTE | 2024-03-17 07:26 | MHC.SHP ---
Pre-Procedural Eval Section A - 24 Hr Update-Section A only Date of Service: 03/17/24 The patient is an INPATIENT: No The patient has been examined within 24 hours of the surgical procedure. The History & Physical has been completed within 30 days and I have reviewed it.: Yes Section B - Complete if H&P > 30 days Chief Complaint: Obesity, unspecified Relevant Family History (Specify if Yes): No Relevant Social History: None Present Medications: None Medical History: No relevant PMH History of Previous Operations: No relevant previous surgery Allergies: Allergies Allergy/AdvReac Type Severity Reaction Status Date / Time No Known Allergies Allergy Verified 03/17/24 06:38 Review of Systems Sugical H&P ROS: Negative: Constitution, Cardiovascular, Respiratory, Neurological, Psychiatric, Hem-Onc, Allergic/Immunologic, Gastrointestinal, Genitourinary, Musculoskeletal, Integumentary, Endocrine and Eyes/Ears/Nose/Throat Exam Surgical H&P Exam: Normal: HEENT, Normal: Heart, Normal: Lungs, Normal: Extremities, Normal: Abdomen, Normal: Skin and Normal: Neurological Plan Diagnosis/Plan: Unchanged I have reviewed the history and physical and performed a pertinent physical examination on my patient. No changes have occurred unless specified. Time Spent With Patient Time: Total time managing care of this patient today ____ minutes.
--- NOTE | 2024-03-17 10:14 | PM.DS ---
DS: Providers Provider Date of Service: 03/18/24 Date of discharge: 03/18/24 Primary care physician: Corina Schreiber MD DS: Summary Hospital Course Hospital Course: ADMITTING DIAGNOSIS: Morbid obesity Sjogren's disease Transaminitis Lymphoproliferative disorder History of cervical cancer (~2015) Lymphoid hyperplasia Lymphadenopathy, mediastinal History of tobacco use Arthritis GERD Hypothyroidism Anxiety ? DISCHARGE DIAGNOSIS: same, s/p laparoscopic sleeve gastrectomy and gastropexy ? PAST SURGICAL HISTORY:? History of laparoscopic cholecystectomy (03/04/23) History of esophagogastroduodenoscopy (EGD) Hx of colonoscopy History of lung surgery History of lung biopsy History of lung surgery History of cervical biopsy History of appendectomy (~1998) History of right oophorectomy (~1998) History of hysterectomy for cancer ? PROCEDURE: upper endoscopy, laparoscopic sleeve gastrectomy and gastropexy ? DISCHARGE SUMMARY: ? History of Present Illness: ? The patient is a? 48? year-old woman with a BMI of? ?38.5 ? kg/m2 and associated co-morbidities as described above. The patient had extensive work-up, lost?38.4 lbs preoperatively and was electively scheduled for laparoscopic, possible open sleeve gastrectomy and gastropexy. Risks and complications of the surgery were discussed with the patient in advance, particularly the possibility of , pulmonary embolism, anastomotic leak, bleeding, bowel injury, GERD, cardiac, renal or pulmonary complications. The patient understood all the risks and was in agreement with the surgical plan. ? Hospital Course: ? The patient underwent an uneventful laparoscopic sleeve gastrectomy with gastropexy on the day of admission. Postoperatively, the patient was transferred to the surgical floor. The patient received IV Acetaminophen and IV dilaudid for pain control. Patient was started on bariatric phase 1 diet POD #0. On postoperative day one, the patient was feeling well without nausea, vomiting, fevers, or tachycardia. The patient had some mild incisional pain and the abdomen was soft.? ? On the morning of postoperative day one, the patient was continued on 1 ounce of water or ice every half hour. During the day, the patient did fairly well, having some incisional pain, but able to ambulate adequately and to tolerate liquids well. ? Since the patient is doing well, we decided that the patient was ready to be discharged. The patient was given instructions to follow-up with me next week and to call my office for any fever over 101, persistent abdominal pain, nausea, vomiting, GERD, symptoms of DVT such as calf tenderness, or leg swelling, or pulmonary embolism such as chest pain or shortness of breath.? The patient was also instructed to drink 40-60 ounces of liquids per day using the 1-ounce cups. The patient had been given prescriptions for Tylenol for pain, Zofran prn for nausea, and pantoprazole and carafate previously. The patient was encouraged to ambulate and use the incentive spirometer. The patient was allowed to shower, but no baths, and encouraged to stay active at home. All of these instructions were given to the patient personally. All questions were answered and the patient understood all instructions, the instructions were also given to the patient in print. Time Attestation Discharge Coordination Time (in mins): 30 Quality: Safe Use of Opioids Does Pt have an Active Cancer Diagnosis on the Problem List?: No Quality: Stroke Does the patient have a stroke diagnosis?: No Physical Exam Vital Signs: Vital Signs: Last Vital Signs Temp 97 F 03/17/24 10:03 Pulse 76 03/17/24 10:05 Resp 18 03/17/24 10:05 BP 128/80 03/17/24 10:05 Pulse Ox 100 03/17/24 10:05 O2 Del Method Room Air 03/17/24 10:05 BMI result Body Mass Index 38.5 DS: Data Data Completed and Pending Completed studies during hospitalization [Text1]: Procedures Resection of Gallbladder, Percutaneous Endoscopic Approach (03/03/23) Pending studies at discharge: Pending at discharge 03/17/24 09:40 Surgical [PTH] Routine Discharge Plan Discharge Patient Disposition: Home, Self-Care Referrals: Corina Schreiber MD [Primary Care Provider] - 1 Week Discharge Medications: Continued escitalopram oxalate 20 mg tablet 20 mg PO DAILY Qty: 90 3RF Held Cosentyx 150 mg/mL syringe 150 mg subcut Q28D Hold Instructions: Resume on 03/18/24. Do not resume until instructed by Dr. Sparks Patient Comments: Patient she did not take this months dose per Dr Sparks' instruction Discontinued cholecalciferol (vitamin D3) 125 mcg (5,000 unit) capsule 125 mcg PO DAILY Qty: 90 0RF thiamine HCl (vitamin B1) 100 mg tablet 100 mg PO DAILY 90 Days Qty: 90 2RF No Action thiamine HCl (vitamin B1) 100 mg tablet 100 mg PO DAILY cholecalciferol (vitamin D3) 125 mcg (5,000 unit) capsule 125 mcg PO DAILY clobetasol [Olux] 0.05 % Foam 1 appl TOPICAL BEDTIME PRN (Reason: Skin Irritation) pantoprazole 40 mg tablet,delayed release (DR/EC) 40 mg PO DAILY@0630 levothyroxine 25 mcg tablet 25 mcg PO DAILY@0600 sucralfate 100 mg/mL suspension 10 ml PO BID Rx Instructions: starting after surgery ondansetron 4 mg tablet,disintegrating 4 mg PO Q12H PRN (Reason: nausea/vomiting) Rx Instructions: for after surgery Discharge Orders: Discharge Order (Routine); Ordered 03/18/24 Ordered By: Abdifatah Sparks Activity on Discharge: No heavy lifting Activity Restrictions/Additional Instructions: No tub baths, sex or returning to work until discussed at first post op appointment. No alcohol, tobacco or illegal drug use. Continue to use incentive spirometer hourly while awake. Walk in home for 5- 10 minutes every 2 hours during the first week. Wear abdominal binder with activity. Follow all meal plan instructions from your bariatric surgeon. Review bariatric handbook and call with any questions. Discharge Instructions 1. Please call your doctor or come back to the emergency room should any new symptoms arise. 2. Activity: abstain from alcohol,? limited stair climbing, no bending, no driving, no exercise, no illicit substances, no lifting, no sex, no tub bath, no work. 4. Diet: follow your bariatric surgeons recommendations for advancing diet. 5. Dressing Change/Wound Care: Your incisions are covered with waterproof dressings. You can shower with these and pat dry. Do not rub over dressings or incisions. If the area is tender, you may apply an ice pack for short intervals (no more than 20 minutes on, followed by at least 20 minutes off). Do not apply heat. Do not use creams, lotions, or topical antibiotics unless instructed to do so by your surgeon. 6. Call your doctor if: - Your temperature exceeds 101.5 F - You experience excessive pain or swelling - You have an unexpected reaction to medication - You have excessive bleeding - You experience continued vomiting/nausea - Your incision begins to separate - Your incision shows signs of infection such as increased redness, swelling, excessive pain, heat, or drainage (light blood or clear fluid is normal) General instructions: No lifting greater than 10 lbs for the next 6 weeks[address] driving within 24 hours of taking narcotic pain medications. If you do not move your bowels in the next 2 days, please take milk of magnesia over the counter. Please follow the post op diet and do not advance your diet until you are seen in the office in about 2 weeks. Please walk around your home every hour or two to prevent blood clots from forming in your legs. You do not need to wake from sleeping to walk. Please sleep in a bed or couch to prevent kinking at the hips and knees. Please take your incentive spirometer (your lung wood shop teacher) home with you and use it for the next few days to prevent pneumonias. You may shower, no hot tubs, baths or swimming pools. Please call the office with any questions or concerns such as increasing abdominal pain, fever, chills, shortness of breath, chest pain, leg pain or swelling, or redness or drainage from your incisions. Please make sure you are consuming 40-60 ounces of total fluids per day. Avoid all carbonation. Do not hesitate to contact the office with any questions at . The patient's medical history has been reviewed and they are considered low risk for post op DVT and therefore DVT prophylaxis is not considered necessary. Travel after surgery was reviewed. The patient has not disclosed any travel plans during the first 30 days after surgery and they have been advised that within the first 30 days after surgery any bus, plane, train or car travel over 2 hours in duration is contraindicated due to the possibility of developing blood clots from immobility. Any travel, needs to include periods of ambulation of 10 minutes in duration every 2 hours.? The patient was instructed to discuss any plans for travel during this period with their bariatric surgeon. Print Language: Persian Discharge Date/Time: 03/18/24 09:07
[2024-03-17 10:43] LABS: Hematocrit 37.7 % (37.0-47.0); Hemoglobin 12.6 g/dl (12.0-16.0)
[2024-03-17 10:55] LABS: Anion Gap 14 (12-20); Blood Urea Nitrogen 15 mg/dL (9-16); Carbon Dioxide 21 mmol/L (22-29); Chloride 106 mmol/L (96-108); Creatinine Clr Calc Pharmacy 116.5; Estimated Glomerular Filt Rate > 60; Glucose Random 113 mg/dL (60-115); Sodium 137 mmol/L (135-145)
[2024-03-17] MEDS: Metoclopramide HCl 10 MG/2 ML VIAL IVPUSH (12:12)
--- NOTE | 2024-03-17 12:50 | P.BOP_ITS ---
Brief Operative Note Date of Service: 03/17/24 Pre-op diagnosis: Severe obesity with comorbidities (see below) Post-op diagnosis: same (& congenital abdominal adhesions) Procedure: INITIAL PATIENT BMI ON PRESENTATION AT OUR OFFICE: 45.3 kg/m2 LAST BMI BEFORE SURGERY: 39.2 kg/m2 COMORBIDITIES: GERD, asthma, hypothyroidism, depression, anxiety, psoriatic arthritis, hyperlipidemia, sleep apnea on CPAP, liver fibrosis ?The patient presented to the Weight Management Program with significant obesity that was negatively impacting the patient's comorbidities as listed above.? The program is a phased program with a special focus on preoperative medical weight management to promote substantial weight loss and prepare the patients for the second phase of the program: bariatric surgery. The patient participated in an intensive weekly lifestyle ?intervention and exercise program during which the patient ?has lost between the initial office visit and the last preoperative visit 34.5 lbs, or 13.5% of initial actual body weight. It was deemed appropriate for the patient to now have bariatric surgery. In light of the current Covid-19 pandemic and the well documented strong association of obesity and increased risk of worse outcomes if infected with Covid-19 (REFERENCES: https://pubmed.ncbi.nlm.nih.gov/60801921/ ,? https://pubmed.ncbi.nlm.nih.gov/93870570/ ), any delay in undergoing bariatric surgery may lead to the patient's worsening health condition and increased?risk of more severe Covid-19 disease if infected. In addition a recent?study from [facility] published in [facility] [employer] on 02/12/2021 ([email or web address]) found that, among patients with obesity, substantial weight loss achieved with surgery was associated with improved outcomes of COVID-19 infection. The findings suggest that obesity can be a modifiable risk factor for the severity of COVID-19 infection. In addition, the patient met the BMI-criteria for bariatric surgery based on the BMI on initial presentation. The patient should not be penalized for achieving such weight loss because ?it is not sustainable long-term without surgical i ntervention and it was achieved in preparation for bariatric surgery ?under my direction and based on my published research ([email or web address]).[email or web address] and? https://www.soard.org/article/H5223-9451(40)66730-X/pdf ) ?that a 10% preoperative weight loss improves long-term weight loss after surgery and reduces perioperative complications.? Insurance carriers such as [facility] have endorsed my recommendations ?and have included in their policies criteria to include a 10% preoperative weight loss requirement. PROCEDURE: Esophago-gastroscopy, laparoscopic repair of incarcerated diaphragmatic hernia, laparoscopic lysis of adhesions, laparoscopic sleeve gastrectomy and laparoscopic gastropexy INDICATIONS: This is a 48 year-old female who was electively scheduled for laparoscopic, possibly open sleeve gastrectomy. The risks and complications of the procedure were discussed with the patient in advance, particularly the possibility of ; pulmonary embolism; staple line leak; bleeding; GERD; cardiac, pulmonary, or renal complications; as well as long-term problems such as insufficient weight loss, vitamin deficiency, strictures, or ulcers. The patient understood all the risks, and was in agreement to proceed with surgery. DESCRIPTION OF PROCEDURE: After informed consent was obtained from the patient, the patient was given preoperative antibiotics, and was transferred to the operating room. After successful induction of general anesthesia, pneumatic compression devices were placed on both lower extremities. An upper endoscopy was performed next. The oropharynx and esophagus appeared to be within normal limits. There was no diaphragmatic hernia present. The stomach was entered. Then after all fluid and air were suctioned and the stomach was fully decompressed, the scope was withdrawn and secured in the mid esophagus. The patient was then prepped and draped in the usual sterile manner, and abdominal access was established at the right upper quadrant with the Toshia technique. A 12 mm blunt port was inserted, and the abdomen was insufflated with CO2 to a pressure of 15 mmHg. Under direct visualization, additional ports were placed, specifically two 5 mm Versi-step ports to the left upper quadrant, and a 5 mm Versi-Step port to the right upper quadrant. 1% lidocaine plain was used to infiltrate all port sites as well as all fascia defects. Following that, the patient was placed in a steep reverse Trendelenburg position. An additional 5 mm port was placed to the right flank for the Mediflex retractor that was used to retract the left lobe of the liver. The gastro-esophageal fat pad was opened with the ultrasonic device (Thunderbeat, Olympus) and the anterior esophagus and hiatus were exposed. The angle of His was opened with the ultrasonic device the fundus of the stomach from any diaphragmatic and splenic attachments. I then opened the gastrocolic ligament between the transverse colon and the greater curvature of the stomach with the ultrasonic device to enter the lesser sac and facilitate the ligation of the short gastric vessels. I started at a mid-point along the greater curvature and using the Thunderbeat, all short gastric vessels were divided all the way to the angle of His until the left sean was completely dissected at its entirety. I then divided the gastro-colic ligament distally to a distance of about 3-4 cm proximal to the pylorus. There were extensive congenital adhesions between the pancreas and posterior gastric wall. Those were lysed completely with the ultrasonic device. Adhesiolysis took approximately 45 min to complete. The stomach was then divided transversely with two Endo ANAIS-45 purple and four ANAIS-60 articulating purple loads using the Mogad stapler and loads. Every effort was made that the gastric sleeve had a tubular shape and an even caliber throughout. Once the sleeve resection was completed, the staple line of the gastric sleeve was reinforced with Hemoclips. The resected stomach was retrieved without difficulty from the Toshia port. A gastropexy was then performed in order to prevent postoperative GERD and partial gastric volvulus. Several interrupted 2.0 Surgidac sutures were placed between the sleeve's staple line and the previously divided greater omentum and gastro-colic ligament using the Endo-Stitch device. ?An upper endoscopy was performed. There was no narrowing at the GE junction. The scope was easily advanced all the way to the pylorus which was clearly visualized. There was no narrowing anywhere and the sleeve's caliber was even throughout. The sleeve's staple line was inspected and there was no evidence of ischemia, bleeding or dehiscence. At that point the gastroscope was withdrawn from the patient?s mouth while we were decompressing the bowel and the stomach from any remaining air. I looked into the lesser sac to see how the sleeve was situating and it was situating well. There was no bleeding from the staple line, spleen, or short gastric vessels. The Mediflex retractor was removed, and the undersurface of the liver was inspected and there was no bleeding. The patient was placed in supine position. I closed the fascial defect of the 12 mm port site with a figure of eight #1 Polysorb suture. Then 30cc Ropivacaine plain with 10 mg of Dexamethasone were used to infiltrate the fascial closure as well as all skin incisions. At this point, the abdomen was deflated, all ports were removed under direct vision, and no bleeding was noted from any of the port sites. The skin incisions were irrigated with saline and were closed with 4-0 absorbable monofilament sutures. Steri-Strips and OpSites were used to cover all incisions. The patient was extubated and was transferred in stable condition to the recovery room for further care. I was present and performed all myles parts of the procedure. Ms. Kraus was the child welfare assistant. There were no residents to assist with this case. Lionel Sparks MD, PhD, FACS Surgeon: Abdifatah Sparks MD Was an Post Graduate Intern used for this Procedure?: No Estimated blood loss (mL): 10 IV fluids (mL): 2,600 Urine output (mL): 0 (No Thornton to record output) Pathology: other (1) Stomach, 2) Gastro-esophageal fat pad) Condition: stable Disposition: PACU
--- NOTE | 2024-03-17 12:55 | PM.PNGS ---
Subjective Subjective Date of Service: 03/18/24 Interval history: Feels well. Mild incisional pain. She is tolerating phase 1 bariatric diet Physical Exam Vital Signs: Vital Signs: Last Vital Signs Temp 97.2 F 03/17/24 11:37 Pulse 62 03/17/24 11:37 Resp 20 03/17/24 11:37 BP 120/67 03/17/24 11:37 Pulse Ox 98 03/17/24 11:37 O2 Del Method Room Air 03/17/24 11:37 BMI result Body Mass Index 38.5 GI: Inspection: Yes normal to inspection, Yes incision (clean, dry and intact) and Yes obesity Palpation (GI): Soft to palpation Extrem: Right lower extremity: normal to inspection (no calf tenderness) Left lower extremity: normal to inspection (no calf tenderness) Objective Data Active Medications Escitalopram Oxalate (Escitalopram Oxalate 20 Mg Tablet) 20 mg PO DAILY [facility] Famotidine (Famotidine/Pf 20 Mg/2 Ml Vial) 20 mg IVPUSH BID [facility] Lactated Ringer's (Lr) 1,000 mls @ 100 mls/hr IVCONT .Q10H [facility] Last Admin: 03/17/24 12:15 Dose: 100 mls/hr Documented By: THEA Cefazolin Sodium/Dextrose (Ancef) 2 gm in 50 mls @ 100 mls/hr IV POSTOP ONE Stop: 03/17/24 14:14 Acetaminophen (Ofirmev) 1,000 mg in 100 mls @ 16.7 mls/hr IV .Q6H [facility] Last Admin: 03/17/24 11:55 Dose: Not Given Documented By: THEA Non-Admin Reason: last dose given at 0945 Levothyroxine Sodium (Levothyroxine Sodium 25 Mcg Tablet) 25 mcg PO DAILY [facility] Metoclopramide HCl (Metoclopramide Hcl 10 Mg/2 Ml Vial) 10 mg IVPUSH Q6H PRN PRN Reason: Nausea Last Admin: 03/17/24 12:12 Dose: 10 mg Documented By: THEA Ondansetron HCl (Ondansetron Hcl 4 Mg/2 Ml Vial) 4 mg IVPUSH Q8H PRN PRN Reason: Nausea Sodium Chloride (0.9 % Sodium Chloride Flush 3 Ml Syringe) 3 ml IVFLUSH QSHIFT [facility] Labs 03/18/24 05:04 03/18/24 05:04 Labs: Laboratory Results - last 24 hr 03/17/24 10:35 Anion Gap 14 Estim Creat Clear Calc 116.5 Estimated GFR > 60 Random Glucose 113 Calcium 9.0 D Procedures Date of Service Date of Service: 03/18/24 Progress Note: A&P Assessment and plan (1) Obesity: Status: Acute Assessment and Plan: s/p laparoscopic sleeve gastrectomy, lysis of adhesions and gastropexy Doing well Will check am labs and if OK the patient will be discharged home (2) BMI 39.0-39.9,adult: Status: Acute (3) GERD (gastroesophageal reflux disease): Status: Acute (4) Fatty liver: Status: Acute (5) Liver fibrosis: Status: Acute (6) Psoriatic arthritis: Status: Acute (7) Sleep apnea treated with continuous positive airway pressure (CPAP): Status: Acute (8) Hypothyroid: Status: Acute (9) Hyperlipidemia: Status: Acute (10) S/P laparoscopic sleeve gastrectomy: Status: Acute (11) Congenital intra-abdominal adhesions: Status: Acute Time Spent With Patient Time: Total time managing care of this patient today ____ minutes. Quality Stroke Does the patient have a stroke diagnosis?: No VTE Prior VTE?: No VTE Risk Level:: Surgical - moderate VTE Device Contraindication: N/A - Device Ordered VTE Drug Contraindication: Treatment Not Indicated
[2024-03-17] MEDS: ceFAZolin Sodium/Dextrose,Iso 2 GM/50 ML PIGGYBACK IV (13:34)
[2024-03-17] MEDS: Acetaminophen 1,000 MG/100 ML PIGGYBACK 16.7 MG IV ×2 (13:43→19:55)
--- NOTE | 2024-03-17 15:15 | PHA.MEDREC ---
Addendum entered by Maria Isabel Gonzales RP 03/17/24 15:29: reviewed by [facility]. Original Note: Pharmacy Consult ? Medication Reconciliation Pharmacy has completed the medication reconciliation. Spoke with patient and she confirmed her medications. She confirmed the Levothyroxine 25mcg tab and confirmed she is taking 1 tab daily and filling it at [facility] in [place]; I called. She confirmed she is getting an Cosentyx injection every 4 weeks and she stated she was due to take it last but since she got surgery today her Dr put that on hold until after the surgery; she states she took it 4 weeks ago from last 03/04, she confirmed she gets that from [facility] pharmacy mail order service. She confirmed she has Onsansentron and Sucralfate at home for after the surgery. She states she took her medications yesterday.
[2024-03-17] MEDS: Famotidine/PF 20 MG/2 ML VIAL IVPUSH (19:56)
[2024-03-17] MEDS: 0.9 % Sodium Chloride Flush 3 ML SYRINGE IVFLUSH (20:01)
[2024-03-18] MEDS: Acetaminophen 1,000 MG/100 ML PIGGYBACK 16.7 MG IV (01:39)
[2024-03-18] MEDS: Lactated Ringers 1,000 ML 100 ML IVCONT (01:39)
[2024-03-18 03:16] VITALS: BP 130/61; PULSE 60; RESP 18; TEMP 36.6; O2SAT 99
[2024-03-18 06:01] LABS: MANUAL DIFF FLAG NO
[2024-03-18 06:11] LABS: Basophils Percent Auto 0.1 % (0-2); Eosinophils Percent Auto 0.3 % (0-4); Hematocrit 36.6 % (37.0-47.0); Hemoglobin 12.2 g/dl (12.0-16.0); Imm Gran Abs Auto 0.04 X10*3/uL (0.00-0.03); Imm Gran Pct Auto 0.5 % (0.0-0.4); Lymphocytes Percent Auto 12.8 % (20-40); Mean Corpuscular HGB Conc 33.3 g/dl (31.0-35.0); Mean Corpuscular Volume 84.1 fL (80.0-98.0); Mean Platelet Volume 10.9 fL (9.4-12.3); Monocytes Absolute Auto 0.6 X10*3/uL (0.1-1.2); Monocytes Percent Auto 7.5 % (2-11); Neutrophils Absolute Auto 6.3 x10*3/uL (2.0-8.3); Neutrophils Percent Auto 78.8 % (45-73); Platelet Count 267 X10*3/uL (160-400); Red Blood Count 4.35 X10*6/uL (4.20-5.50); Red Cell Distribution Width 13.6 % (11.0-16.0)
[2024-03-18 06:23] LABS: Anion Gap 14 (12-20); Blood Urea Nitrogen 12 mg/dL (9-16); Carbon Dioxide 21 mmol/L (22-29); Chloride 105 mmol/L (96-108); Creatinine Clr Calc Pharmacy 122.1; Estimated Glomerular Filt Rate > 60; Glucose Random 80 mg/dL (60-115); Potassium 4.4 mmol/L (3.3-5.1); Sodium 136 mmol/L (135-145)
[2024-03-18 07:07] VITALS: BP 138/86; PULSE 75; RESP 16; TEMP 36.3; O2SAT 99
[2024-03-18] MEDS: Escitalopram Oxalate 20 MG TABLET PO (07:46)
[2024-03-18] MEDS: Famotidine/PF 20 MG/2 ML VIAL IVPUSH (07:46)
[2024-03-18] MEDS: Levothyroxine Sodium 25 MCG TABLET PO (07:46)
--- NOTE | 2024-03-18 08:36 | HO.POSTANES ---
Post Anesthesia Evaluation Post Anesthesia Evaluation Date of Service: 03/18/24 Vital Signs: Vital Signs Temp Pulse Resp BP Pulse Ox O2 Del Method 03/18/24 07:07 97.3 F 75 16 138/86 99 Room Air 03/18/24 03:16 97.9 F 60 18 130/61 99 CPAP 03/17/24 23:16 97.5 F 64 18 109/57 L 94 Room Air Anesthesia: General Endotracheal-GETA Mental Status: Awake Pain Control: Satisfactory Nausea/Vomiting: None Hydration: Adequate Anesthesia-Related Issues: No Anes. Related Issues
--- NOTE | 2024-03-18 09:23 | PC.NURSE ---
IV removed before discharge, Patient alert and oriented and ambulated to private vehicle upon discharge.Education provided and discharge paperwork given
--- NOTE | 2024-03-18 09:43 | MHC.CM.PN ---
PT REPORTS SHE LIVES WITH HER 2 KIDS AND IS INDEPENDENT WITH CARE PT HAS NO SERVICES AND A CPAP FOR DME HCP ON FILE AND VERIFIED PCP: REBECCA GOLDMAN DCP: HOME NO SERVICES TODAY VIA PRIVATE TRANSPORT
== END 2024-03-18 09:07 | disposition home or self-care (01) ==
LOC: HO.SSS 10:13 → HO.S3 11:06
PROVIDERS: Physician Assistant Surgical; PCP Internal Medicine; Visit Provider Surgery
PROC: (CPT 43845; principal; 2024-03-17 07:30)
DX: E66.01 Morbid (severe) obesity due to excess calories (principal); Z68.41 Body mass index [BMI] 40.0-44.9, adult; Q43.3 Congenital malformations of intestinal fixation; D36.0 Benign neoplasm of lymph nodes; D47.9 Neoplasm of uncertain behavior of lymphoid, hematopoietic and related tissue, unspecified; K74.00 Hepatic fibrosis, unspecified; R74.01 Elevation of levels of liver transaminase levels; J45.909 Unspecified asthma, uncomplicated; E03.9 Hypothyroidism, unspecified; M35.00 Sjogren syndrome, unspecified; Z85.41 Personal history of malignant neoplasm of cervix uteri; F32.A Depression, unspecified; F41.9 Anxiety disorder, unspecified; E78.5 Hyperlipidemia, unspecified; L40.50 Arthropathic psoriasis, unspecified; R59.1 Generalized enlarged lymph nodes; G47.30 Sleep apnea, unspecified; Z99.89 Dependence on other enabling machines and devices; Z79.899 Other long term (current) drug therapy; Z87.891 Personal history of nicotine dependence
CPT/HCPCS: 43775; 43659; 49329; 36415; 80048; 85014; 85018; 85025; 86850; 86900; 86901; 88305; 88307; 88342; A4649; C9145; J0131; J0690; J1100; J2003; J2250; J2405; J2704; J2765; J2795; J3010; J7120

== ENCOUNTER → 2024-03-17 05:52 | Outpatient (BNV) | payer OTHER, SELFPAY | PROVIDERS: PCP Internal Medicine; Visit Provider Surgery | DX: K21.9 Gastro-esophageal reflux disease without esophagitis (principal) | CPT/HCPCS: 43239 ==

== ENCOUNTER 2024-04-27 09:25 | Outpatient (AMB) | payer OTHER, SELFPAY ==
--- NOTE | 2024-04-27 08:33 | MHC.OFFVISWM ---
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 Presents for 6 week post op visit. Weight today is 207 pounds, with a BMI of 36.7. There has been a 48.6 pound weight loss,(initial weight 255.6 pounds) since starting the program on 09/09/2023 reflecting a 19% total body weight loss and a weight loss of 14.3 pounds since surgery (operative weight 221.3 pounds) reflecting a 6.4% TBWL since surgery. No complaints of nausea, emesis, abdominal pain or reflux. Reports infrequent but normal bowel movements every 2-3 days and uses fiber regularly. Taking celebrate mvi Adding shake to coffee, willing to continue current meal plan. Present meal plan includes: 9-11 Atkins RTD 15 gm 12-2 another shake 4-6 another shake 7-9 Atkins bar Drinking 40-50 oz additional water ? Exercise routine includes: walking pad at home 30 min walking inside at work 30 min has membership [facility] Medical History (Updated 03/20/24 @ 00:03 by Kassy Guevara) Encounter for well woman exam with routine gynecological exam Annual physical exam Asymptomatic gallstones Hyperlipidemia Hepatitis Sleep apnea Sjogren's disease Transaminitis Lymphoproliferative disorder Morbid obesity History of cervical cancer (~2015) Lymphoid hyperplasia Lymphadenopathy, mediastinal History of tobacco use Arthritis Surgical History (Updated 03/20/24 @ 00:03 by Kassy Guevara) History of laparoscopic cholecystectomy (03/04/23) History of esophagogastroduodenoscopy (EGD) Hx of colonoscopy History of lung surgery History of lung biopsy History of lung surgery History of cervical biopsy History of appendectomy (~1998) History of right oophorectomy (~1998) History of hysterectomy for cancer Family History Father Lung cancer Colon cancer Mother Breast CA Social History Household Members: Children Household Members Other:: , 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), 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 Housing: [facility] Are you a primary clinical care leader to a significant other at home: Yes Do you presently have visiting nurse or other home services: No Alcohol intake: never Patient Tobacco Use Status: Former Tobacco user e-Cigarette/Vaping Use: Never Used Substance Use Type: Marijuana service: No Current occupational status: employed Cognitive needs: No Hearing needs: No Vision needs: Yes Telehealth Telehealth Telehealth Platform: Telephone Location of provider rendering services: practice address Location of patient: other Patient Identification confirmed using: Name, : Yes Telehealth method: voice only Patient verbally consented to treatment: Yes Patient verbally consented to billing insurance company: Yes Patient informed of any privacy concerns related to visit: Yes Minutes spent on Phone/Video with Pt.: 15 Assessment & Plan Assessment & Plan (1) S/P laparoscopic sleeve gastrectomy: Code(s): Z98.84 - Bariatric surgery status Category: Surgical Plan: Patient will continue current meal plan. She was encouraged to go to [employer] as she has a gym membership there. Continue walking during the day at work however plan to go to the gym and burn 300 calories per day or 2000 calories per week. She may incorporate abdominal exercises starting next week. She will let me know if there is any issues regarding her constipation. She has recently increased her fiber and is moving her bowels every 2-3 days. She seemed satisfied with this and did not wish to have any stool softeners prescribed.
[2024-04-27 08:35] VITALS: BMI 36.7
--- OUTSIDE RECORDS SUMMARY | 2024-04-27 10:30 | XMS_ITS | Clinical Summary ---
Author Organization [facility] Address [address] [place] [address] Care Team Providers Care Drapery Rod Assembler Name Role Phone Corina Schreiber MD Primary Care Provider [phone] Surgical History Surgery Date Site/Laterality Comments APPENDECTOMY PROCEDURE: HISTORICAL APPENDECTOMY OTHER SURGICAL HISTORY PROCEDURE: CERVICAL BIOPSY SPCMN PATHOLOGY EXAM HYSTERECTOMY N/A PROCEDURE: HISTORICAL HYSTERECTOMY OTHER SURGICAL HISTORY Right PROCEDURE: AK CORE NEEDLE BX LUNG/MEDIASTINUM PERQ W/IMG OTHER SURGICAL HISTORY Right PROCEDURE: AK THORACOSCOPY W/DX WEDGE RESEXN ANATO LUNG RESEXN OOPHORECTOMY Right PROCEDURE: AK OOPHORECTOMY PARTIAL/TOTAL UNI/BI OTHER SURGICAL HISTORY 06/25/2022 Right PROCEDURE: AK THORACOSCOPY W/THERA WEDGE RESEXN INITIAL UNILAT; COMMENT: RUL Medical History Medical History Date Comments Osteoarthritis DX:Osteoarthriti s History of cervical cancer DX:Hi story of cervical cancer History of tobacco use DX:Histor y of tobacco use Lymphoid hyperplasia DX:Lymphoid hyperplasia Lymphadenopathy, mediastinal DX: Lymphadenopathy, mediastinal Family History Medical History Relation Name Comments Lung cancer Father Other cancer Father Breast cancer Mother Relation Name Status Comments Father Mother Social History Tobacco Use Types Packs/Day Years Used Date Smoking Tobacco: Former Cigarettes 0.5 17 0 02/17/1991 - 02/18/2008 Smokeless Tobacco: Never Alcohol Use Standard Drinks/Week Comments Never 0 (1 standard drink = 0.6 oz pur e alcohol) Comments Unknown Sex and Gender Information Value Date Recorded Sex Assigned at Not on file Legal Sex Female 9:07 PM EST Gender Identity Not on file Sexual Orientation Not on file Obstetrics History Last Filed Vital Signs Vital Sign Reading Time Taken Comments Blood Pressure 117/75 07/08/2022 11:24 AM EDT Si tting L Arm Pulse 73 07/08/2022 11:24 AM EDT Temperature - - Respiratory Rate - - Oxygen Saturation - - Inhaled Oxygen Concentration - - Weight 112 kg (248 lb) 07/08/2022 11:24 AM EDT Height 160 cm (5' 3 ) 07/08/2022 11:24 AM EDT Body Mass Index 43.93 07/08/2022 11:24 AM EDT Plan of Treatment Health Maintenance Due Date Last Done Comments Breast Cancer Screening 1975 DTaP,Tdap,and Td Vaccines (1 - Tdap) 10/20/1994 Hepatitis B Vaccines (1 of 3 - 19+ 3-dose series) 10/20/1994 Cervical Cancer Screening: P ap Smear 10/20/1996 Colorectal Cancer Screening: Colonoscopy 03/14/2023 Depression Screening 03/14/2023 HIV Screening 03/14/2023 Hepatitis C Screening 03/14/2023 Social Influencers of Health Screening 03/14/2023 COVID-19 Vaccine ( - 2023-2 5 season) 2023 Influenza Vaccine (#1) 2023 HIB Vaccines Aged Out No longer eligi ble based on patient's age to complete this topic HPV Vaccines Aged Out No longer eligi ble based on patient's age to complete this topic Hepatitis A Vaccines Aged Out No long er eligible based on patient's age to complete this topic IPV Vaccines Aged Out No longer eligi ble based on patient's age to complete this topic MMR Vaccines Aged Out No longer eligi ble based on patient's age to complete this topic Meningococcal ACWY Vaccine Aged Out N o longer eligible based on patient's age to complete this topic Meningococcal B Vacine Aged Out No lo nger eligible based on patient's age to complete this topic Pneumococcal Vaccine: Pediat rics (0 to 5 Years) and At-Risk Patients (6 to 64 Years) Aged Out No longer eligible b ased on patient's age to complete this topic RSV Immunization Patients Un danni 20 months Aged Out No longer eligible b ased on patient's age to complete this topic Varicella Vaccines Aged Out No longer eligible based on patient's age to complete this topic Care Teams Drapery Rod Assembler Relationship Specialty Start Date End Date Corina Schreiber MD PCP - General 05/22/22
== END 2024-04-27 09:27 | disposition home or self-care (01) ==
LOC: HO.HBS 09:25
PROVIDERS: PCP Internal Medicine; Visit Provider Physician Assistant Surgical
DX: Z98.84 Bariatric surgery status (principal)
CPT/HCPCS: 99024

== ENCOUNTER 2024-07-06 07:26 | Outpatient (REF) | payer OTHER, SELFPAY ==
--- NOTE | ~2024-07-06 | MM_ITS ---
EXAMINATION: MM SCREENING DIGITAL BREAST TOMOSYNTHESIS, BILATERAL CLINICAL INFORMATION: Screening. Asymptomatic. COMPARISON: Mammography: Comparison is made with available priors TECHNIQUE: Digital breast mammography with tomosynthesis is performed in both the craniocaudal and mediolateral oblique views along with computer-aided detection (CAD). FINDINGS: There are scattered areas of fibroglandular density (ACR BI-RADS breast composition Category b). There are no significant masses, abnormal calcifications, or other abnormalities. MM/MM tomosynthesis screening BI IMPRESSION: No mammographic evidence of malignancy. ASSESSMENT: BI-RADS BI-RADS 1 - Negative RECOMMENDATION: Routine annual mammography screening. 1 year F/U This examination should not preclude the clinical evaluation of a suspicious palpable abnormality. This patient's information was entered into a reminder system with a target due date for their next mammogram. Electronically signed by: Kaylin Valdivia DO 07/07/2024 01:08 PM EDT
== END 2024-07-06 07:27 | disposition home or self-care (01) ==
LOC: HO.MAMMO 07:26
PROVIDERS: PCP Internal Medicine; Visit Provider Internal Medicine
DX: Z12.31 Encounter for screening mammogram for malignant neoplasm of breast (principal)
CPT/HCPCS: 77063; 77067

== ENCOUNTER → 2024-07-06 07:30 | Outpatient (BNV) | payer OTHER, SELFPAY | PROVIDERS: PCP Internal Medicine; Visit Provider Internal Medicine | DX: Z12.31 Encounter for screening mammogram for malignant neoplasm of breast (principal) | CPT/HCPCS: 77063; 77067 ==